=== PATIENT | female | born 1990 | race Caucasian/White ===

== ENCOUNTER 2021-08-18 12:10 | Outpatient (CLI) | payer BC, SELFPAY ==
[2021-08-18 13:31] LABS: HIV 1/2 Ab P24 Ag Result Negative (Negative)
[2021-08-18 13:45] LABS: Hepatitis B Surface Antigen Negative (Negative); Rubella IgG Antibody 39.7 IU/ML
[2021-08-19 11:51] LABS: Rapid Plasma Reagin Non-Reactive (NonReactive)
== END 2021-08-18 12:11 | disposition home or self-care (01) ==
LOC: ANHLAB 12:14
PROVIDERS: PCP Family Medicine; Visit Provider Obstetrics & Gynecology
DX: Z34.91 Encounter for supervision of normal pregnancy, unspecified, first trimester (principal); Z3A.00 Weeks of gestation of pregnancy not specified
CPT/HCPCS: 36415; 84702; 86592; 86703; 86747; 86762; 86787; 86850; 86900; 86901; 87086; 87340; G0432

== ENCOUNTER 2021-09-12 11:50 | Emergency (ER) | payer BC, SELFPAY ==
--- NOTE | ~2021-09-12 | US_ITS ---
EXAMINATION: US OB <= 14 weeks fetus DATE: 09/12/2021 13:05 INDICATION: Left lower quadrant pain TECHNIQUE: Real-time transabdominal and transvaginal obstetric ultrasound. FINDINGS: No prior studies for comparison. The uterus measures 11.3 x 10.6 x 8 cm. There is an intrauterine gestational sac, with pole luna ntified. The crown rump length measures 5.6 cm, which correlates with a estimated gestational age of 12 weeks 2 days. heart tones are identified measuring 161 bpm. IMPRESSION: 1. SL IUP with an EGA of 12 weeks, 2 days (EDC by current ultrasound of 03/25/2022). Reviewed, dictated and finalized at location A. [facility] IMPRESSION: 1. SL IUP with an EGA of 12 weeks, 2 days (EDC by current ultrasound of 03/25/20).
--- NOTE | 2021-09-12 11:52 | ECG_ITS ---
Measurements Intervals [place] Rate: 78 P: 7 LA: 130 QRS: -46 QRSD: 93 T: 52 QT: 352 QTc: 401 Interpretive Statements SINUS RHYTHM LOW QRS VOLTAGE IN PRECORDIAL LEADS INCOMPLETE RIGHT BUNDLE BRANCH BLOCK LEFT ANTERIOR FASCICULAR BLOCK BASELINE ARTIFACT- I, III, AVR, AVL ABNORMAL ECG Electronically Signed On 09-12-2021 12:01:49 BONE PROCESS OPERATOR by Emerson Wynn D.O.
[2021-09-12 11:55] VITALS: BP 112/75; PULSE 90; RESP 16; TEMP 36.4; O2SAT 99
[2021-09-12 12:17] LABS: Basophils Percent Auto 0.1 % (0.2-1.2); Eosinophils Percent Auto 0.4 % (0-4.4); Hematocrit 40.6 % (37.0-47.0); Hemoglobin 13.8 g/dL (12.0-15.0); Immature Granulocyte Absolute 0.03 K/mm3 (0.00-0.031); Immature Granulocyte Percent A 0.4 % (0-0.5); Lymphocytes Absolute Auto 1.01 K/mm3 (0.9-3.2); Lymphocytes Percent Auto 14.1 % (18.3-44.2); Mean Corpuscular Hemoglobin 30.1 pg (26-34); Mean Corpuscular Volume 88.6 fl (80-100); Monocytes Absolute Auto 0.3 K/mm3 (0.1-0.6); Monocytes Percent Auto 4.7 % (2.6-8.5); Neutrophils Absolute Auto 5.8 K/mm3 (1.3-6.7); Neutrophils Percent Auto 80.3 % (45.5-73.1); Platelet Count Result 131 k/mm3 (150-375); Red Blood Count 4.58 M/mm3 (4.2-5.4); White Blood Count 7.2 K/mm3 (4.5-10.0)
--- NOTE | 2021-09-12 12:37 | ED.SYNCOPE ---
HPI - Syncope General Chief Complaint: Syncope Stated Complaint: , SYNCOPE, CRAMPING Time Seen by Provider: 09/12/21 12:08 Source: patient, RN notes reviewed and old records reviewed Mode of arrival: ambulatory Limitations: no limitations History of Present Illness HPI narrative: This is a 31 year old female approximately 11 wks GA who presents for evaluation of left lower abdominal pain and near syncope. Patient reports today she had been standing for an hour and she became lightheaded. She felt like she was going to pass out. She also developed left lower abdominal cramping pain today. She denies having palpitations, chest pain or shortness of breath. She states she has not felt well during this and she has had a previous episode of near syncope recently. She has daily nausea with eating, but she has been trying to eat something every 2 hours. She denies cough, fever, vomiting or diarrhea. She also denies vaginal bleeding or spotting. Related Data Home Medications Medication Instructions Recorded Confirmed No Home Medications 06/14/21 Allergies Allergy/AdvReac Type Severity Reaction Status Date / Time diclofenac Allergy Mild swelling Verified 06/14/21 10:08 and throat numbness Review of Systems Review of Systems: All systems reviewed & are unremarkable except as noted in HPI and below PMFSH Past Medical History Medical History Infertility Family History Family History Father Acute myocardial infarction Mother Diabetes mellitus Hypertension Heart disease Social History Social History Social History: Smoking status: Never smoker Second hand tobacco smoke exposure: No Alcohol intake: never Substance use: never Substance use type: does not use Gender identity (if verbalized by the patient): Female Sexual Orientation (if Verbalized by the Patient): Straight or Heterosexual Exam Narrative: GENERAL: Well-appearing, well-nourished, and in no acute distress. HEAD: Normocephalic, atraumatic EYES: PERRLA and EOMI, conjunctiva clear without discharge EARS: TM's clear bilaterally without erythema or dullness NOSE: Nares clear, no rhinorrhea or epistaxis THROAT:Mucous membranes moist, Oropharynx normal without erythema, exudate, peritonsillar swelling or fluctuance NECK: Supple, without lymphadenopathy or mass RESPIRATORY: No respiratory distress, Airway patent, Respirations non-labored, Clear to auscultation without rales, rhonchi or wheeze HEART: Regular rate and rhythm. No murmur heard. Normal peripheral pulses. ABDOMEN: Soft, nontender, nondistended, normal active bowel sounds. No masses. No rebound or guarding, No organomegaly. EXTREMITIES: No edema, normal strength with full range of motion. SKIN: Warm, dry, normal color without rash NEURO: Alert and oriented x3. CN 2-12 grossly intact. No focal deficits. PSYCH: Normal mood and affect. Course Reevaluation(s) Reevaluation #1: PAtient states she feels better after receiving IVF. She denies any dizziness Date: 09/12/21 Time: 15:25 Vital Signs Vital signs: Vital Signs Temperature 97.6 F 09/12/21 11:55 Pulse Rate 90 09/12/21 11:55 Respiratory Rate 16 09/12/21 11:55 Blood Pressure 112/75 09/12/21 11:55 Pulse Oximetry 99 09/12/21 11:55 Temperature 97.6 F 09/12/21 11:55 Pulse Rate 72 09/12/21 15:42 Respiratory Rate 14 09/12/21 15:42 Blood Pressure 107/63 09/12/21 15:42 Pulse Oximetry 100 09/12/21 15:42 MDM - Syncope Medical Records Attestation: I reviewed the patient's medical records. Lab Data Attestation: I reviewed the patient's lab results. Result diagrams: 09/12/21 11:59 09/12/21 11:59 Labs: Lab Results
[2021-09-12] MEDS: LACTATED RINGERS 1,000 ML 999 ML IV CONT (12:43)
[2021-09-12] MEDS: METOCLOPRAMIDE HCL INJ 10 MG/2 ML VIAL IV PUSH (12:44)
[2021-09-12 12:56] LABS: Anion Gap 8 mmol/L (8-16); Blood Urea Nitrogen 10 mg/dL (7-17); Calcium 8.8 mg/dL (8.4-10.2); Carbon Dioxide 23 mmol/L (22-30); Chloride 102 mmol/L (98-107); Estimated CRCL calculation 115 ml/min; Estimated Glomerular Filt Rate > 60; Glucose 86 mg/dL (65-110); Potassium 4.2 mmol/L (3.4-5.0); Sodium 133 mmol/L (137-145)
[2021-09-12 14:03] LABS: Add Urine Microscopic? YES; Appearance Urine Cloudy (Clear); Bacteria Urine Trace /hpf; Bilirubin Urine Negative (Negative); Blood Urine Negative (Negative); Color Urine Amber (Yellow); Glucose Urine UA Negative (Negative); Ketones Urine Negative (Negative); Leukocyte Esterase Ur 1+ LEU/UL (Negative); Mucus Urine Heavy /lpf; Nitrate Urine Negative (Negative); Protein Urine 1+ mg/dL (Negative); Specific Grav Ur 1.026 (1.001-1.035); Squamous Epithelial Cell Urine Many /hpf (Few); WBC Urine 0-3 /hpf
[2021-09-12 14:08] VITALS: BP 102/63; PULSE 72; RESP 12; O2SAT 100
[2021-09-12 14:16] VITALS: BP 102/63; BP 114/59; PULSE 67; PULSE 72
[2021-09-12 14:21] VITALS: BP 111/76; PULSE 89
[2021-09-12 14:54] LABS: Magnesium 1.8 mg/dL (1.6-2.3)
[2021-09-12 15:42] VITALS: BP 107/63; PULSE 72; RESP 14; O2SAT 100
== END 2021-09-12 15:43 | disposition home or self-care (01) ==
PROVIDERS: Emergency Provider General Practice; PCP Family Medicine
DX: O26.891 Other specified pregnancy related conditions, first trimester (principal); R55 Syncope and collapse; R10.32 Left lower quadrant pain
CPT/HCPCS: 36415; 76801; 80048; 81001; 81025; 83735; 84702; 85025; 85055; 85461; 93005; 96361; 96365; 96375; 99284; J0131; J2765; J7120

== ENCOUNTER 2022-01-04 07:16 | Outpatient (CLI) | payer BC, SELFPAY ==
[2022-01-04 08:58] LABS: Glucose 1 Hour PP 50gm Dose 120 mg/dL
[2022-01-04 09:11] LABS: Basophils Percent Auto 0.4 % (0.2-1.2); Eosinophils Absolute Auto 0.1 K/mm3 (0-0.3); Hematocrit 34.4 % (37.0-47.0); Hemoglobin 11.4 g/dL (12.0-15.0); Immature Granulocyte Absolute 0.09 K/mm3 (0.00-0.031); Immature Granulocyte Percent A 1.2 % (0-0.5); Immature Platelet Fraction Pct 7.4 % (0.9-11.2); Lymphocytes Percent Auto 14.4 % (18.3-44.2); Mean Corpuscular HGB Conc 33.1 g/dl (32-36); Mean Corpuscular Volume 93.5 fl (80-100); Mean Platelet Volume 11.8 fl (7.4-10.4); Monocytes Absolute Auto 0.6 K/mm3 (0.1-0.6); Monocytes Percent Auto 7.5 % (2.6-8.5); Neutrophils Absolute Auto 5.8 K/mm3 (1.3-6.7); Neutrophils Percent Auto 75.5 % (45.5-73.1); Platelet Count Result 121 k/mm3 (150-375); Red Blood Count 3.68 M/mm3 (4.2-5.4); White Blood Count 7.7 K/mm3 (4.5-10.0)
[2022-01-04 09:37] LABS: HIV 1/2 Ab P24 Ag Result Negative (Negative)
== END 2022-01-04 07:17 | disposition home or self-care (01) ==
LOC: ANHLAB 07:17
PROVIDERS: PCP Family Medicine; Visit Provider Obstetrics & Gynecology
DX: Z34.90 Encounter for supervision of normal pregnancy, unspecified, unspecified trimester (principal)
CPT/HCPCS: 36415; 82947; 85025; 85055; 86703; G0432

== ENCOUNTER 2022-01-12 13:45 | Outpatient (CLI) | payer BC, SELFPAY ==
[2022-01-12 14:31] LABS: Add Urine Microscopic? YES; Appearance Urine Clear (Clear); Bacteria Urine Trace /hpf; Bilirubin Urine Negative (Negative); Blood Urine 1+ (Negative); Color Urine Yellow (Yellow); Glucose Urine UA Negative (Negative); Ketones Urine Trace mg/dL (Negative); Leukocyte Esterase Ur Trace LEU/UL (Negative); Mucus Urine Rare /lpf; Nitrate Urine Negative (Negative); Protein Urine Negative (Negative); RBC Urine 21-50 /hpf (0-2); Specific Grav Ur 1.019 (1.001-1.035); Squamous Epithelial Cell Urine Rare /hpf (Few); Urobilinogen Urine Negative mg/dL (<2.0)
== END 2022-01-12 13:46 | disposition home or self-care (01) ==
LOC: ANHLAB 13:49
PROVIDERS: PCP Family Medicine; Visit Provider Obstetrics & Gynecology
DX: R10.30 Lower abdominal pain, unspecified (principal)
CPT/HCPCS: 81001

== ENCOUNTER 2022-01-14 13:37 | Observation (INO) | payer BC, SELFPAY ==
--- NOTE | ~2022-01-14 | US_ITS ---
EXAMINATION: US OB limited DATE: 01/14/2022 14:58 INDICATION: Left flank pain. Assess placenta and well-being during third trimester of . TECHNIQUE: Real-time ultrasound of the pelvis was performed. The interpreting radiologist was not pre sent for the study. COMPARISON: 09/12/2021 FINDINGS: There is a single living fetus in vertex presentation. Normal anterior placenta. heart rate is 135 beats per minute (bpm). The amniotic fluid volume is subjectively normal. IMPRESSION: 1. Single living fetus in vertex presentation with heart rate of 135 bpm. 2. Normal anterior placenta. Reviewed, dictated and finalized at location A. ING METER INSTALLER IMPRESSION: 1. Single living fetus in vertex presentation with heart rate of 135 bpm . 2. Normal anterior placenta.
--- NOTE | ~2022-01-14 | US_ITS ---
EXAMINATION: US renal BI DATE: 01/14/2022 15:00 INDICATION: Left flank pain TECHNIQUE: Multiple ultrasound grayscale images of the kidneys were obtained. COMPARISON: None. FINDINGS: The right kidney measures 10.0 x 4.6 x 5.0 cm. The left kidney measures 10.5 x 3.7 x 4.9 cm. The kidn eys demonstrate normal echogenicity. Mild left hydrocele. No right hydrocele. There is no hydronephro sis in either kidney. No stones identified. The bladder is decompressed and poorly visualized. IMPRESSION: 1. Mild left hydronephrosis. Reviewed, dictated and finalized at location A. NICAL DELIVERY MANAGER
[2022-01-14 13:44] VITALS: BP 124/80; PULSE 81
--- NOTE | 2022-01-14 13:56 | PC.NURSE ---
Called Dr. Desouza with pt admission. Informed of admission on 01/12 and treatment for UTI. Pt complaining of severe left flank pain radiating into abdomen. Pt unable to sit still. FHTs obtained with [facility]. Orders received.
[2022-01-14 14:00] VITALS: TEMP 36.7; BMI 25.0
[2022-01-14] MEDS: MORPHINE SULFATE (*CRX) 2 MG/ML INJ IV PUSH (14:16)
[2022-01-14] MEDS: LACTATED RINGERS 1,000 ML 999 ML IV CONT (14:18)
--- NOTE | 2022-01-14 15:12 | PC.NURSE ---
Called Dr. Lerner with pt update. Informed of continued pain. Ultrasound report given. Orders received.
[2022-01-14] MEDS: HYDROmorphone HCL INJ (*CRX) 1 MG/ML SYR IV PUSH (15:21)
[2022-01-14 15:51] LABS: Basophils Percent Auto 0.3 % (0.2-1.2); Eosinophils Absolute Auto 0.1 K/mm3 (0-0.3); Eosinophils Percent Auto 0.5 % (0-4.4); Hematocrit 34.5 % (37.0-47.0); Hemoglobin 11.6 g/dL (12.0-15.0); Immature Granulocyte Percent A 0.9 % (0-0.5); Immature Platelet Fraction Pct 7.6 % (0.9-11.2); Lymphocytes Absolute Auto 1.16 K/mm3 (0.9-3.2); Lymphocytes Percent Auto 10.6 % (18.3-44.2); Mean Corpuscular HGB Conc 33.6 g/dl (32-36); Mean Corpuscular Hemoglobin 30.9 pg (26-34); Mean Platelet Volume 11.3 fl (7.4-10.4); Monocytes Absolute Auto 0.8 K/mm3 (0.1-0.6); Monocytes Percent Auto 6.8 % (2.6-8.5); Neutrophils Absolute Auto 8.9 K/mm3 (1.3-6.7); Neutrophils Percent Auto 80.9 % (45.5-73.1); Platelet Count Result 109 k/mm3 (150-375); Red Blood Count 3.75 M/mm3 (4.2-5.4); Red Cell Distribution Width 12.3 % (11.5-14.5)
[2022-01-14] MEDS: LACTATED RINGERS 1,000 ML 150 ML IV CONT ×3 (15:52→23:27)
[2022-01-14 15:57] LABS: Add Urine Microscopic? YES; Appearance Urine Cloudy (Clear); Bacteria Urine Trace /hpf; Bilirubin Urine Negative (Negative); Blood Urine Negative (Negative); Color Urine Yellow (Yellow); Glucose Urine UA Negative (Negative); Ketones Urine 1+ mg/dL (Negative); Leukocyte Esterase Ur Trace LEU/UL (NEGATIVE); Mucus Urine Rare /lpf; Nitrate Urine Negative (Negative); Protein Urine Negative (Negative); Specific Grav Ur 1.017 (1.001-1.035); Squamous Epithelial Cell Urine Moderate /hpf (Few); Urobilinogen Urine Negative mg/dL (<2.0); WBC Urine 0-3 /hpf (0-3)
--- NOTE | 2022-01-14 16:05 | PC.NURSE ---
Called Dr. Rice's exchange and left message.
--- NOTE | 2022-01-14 16:12 | PC.NURSE ---
Called Dr. Desouza with pt update. Pt still complaining of pain. Also informed of contractions noted on tracing. Informed that pt is unable to void at this time and has only had about 15cc out since admission. Orders received.
[2022-01-14] MEDS: TERBUTALINE SULFATE 1 MG/ML VIAL 0.25 MG SUB-Q (16:32)
--- NOTE | 2022-01-14 16:45 | PC.NURSE ---
Dr. Rice returned call. Report given on pt. Will see pt in AM unless worsening symptoms.
[2022-01-14] MEDS: HYDROmorphon 0.2MG/ML PCA(*CRX 6 MG/30 ML PCA.VIAL 0.1 MG IV CONT (17:20)
--- NOTE | 2022-01-14 18:10 | PC.NURSE ---
Called Dr. Desouza with pt update. Informed of continuing pain. Urine output about 100cc in 1.5hrs. Orders received.
[2022-01-14 18:16] VITALS: BP 99/67; PULSE 107
[2022-01-14 18:18] VITALS: RESP 17; TEMP 36.9
--- NOTE | 2022-01-14 20:36 | PC.NURSE ---
called in for update, informed pt's pain is down to a 5 on pain scale from a 7 and has around 200-250 in her garcia. Order received for zofran prn for pt's nausea.
[2022-01-14] MEDS: ONDANSETRON INJ 4 MG/2 ML VIAL IV PUSH (20:51)
[2022-01-15] VITALS (7 sets, daily range): BP systolic 104–117; BP diastolic 64–73; PULSE 82–84; RESP 15; TEMP 36.4–36.9
[2022-01-15] MEDS: HYDROmorphon 0.2MG/ML PCA(*CRX 6 MG/30 ML PCA.VIAL 0.1 MG IV CONT (03:17)
--- NOTE | 2022-01-15 08:04 | WPDURCON ---
Assessment and Plan Assessment and plan (1) Left flank pain: Code(s): R10.9 - Unspecified abdominal pain Status: Acute Assessment and Plan: Atypical left flank pain that is improved significantly over 12 hours. Given that, and the minimal hydronephrosis on renal ultrasound, doubt the presence of a ureteral stone. Her urinalysis is significantly contaminated in the scant hematuria seen is. She continues to feel well along comfortable with discharge today. I would recommend a repeat renal ultrasound within the next several days, specifically looking for ureteral jets. Urology Consult Note HPI Date Seen: 01/15/22 Requesting Physician: Kerry Bauman MD Primary Care Provider: Latanya Lazcano MD Consult Narrative Narrative: Jane Babin is a 31 year old female - pleasant young lady at 26 weeks gestation with her first baby. She was admitted yesterday with a 24-36 hour history progressively uncomfortable pelvic and left flank pain. This pain was somewhat positional, exacerbated by walking. It was associated with some mild nausea but no vomiting. She denies fevers chills or significant change in voiding symptoms. She has no history of urolithiasis. Pain is improved significantly overnight and she is quite comfortable this morning only mild pelvic discomfort. Renal ultrasound showed scant left hydronephrosis. Due to patient's discomfort the boiler/chiller technician was unable to look for the presence of ureteral jets. Review of Systems Cardiovascular: Cardiovascular: Denies chest pain, Denies lightheadedness, Denies palpitations and Denies dyspnea Respiratory: Respiratory: Denies dyspnea Gastrointestinal: Gastrointestinal: Denies diarrhea, Denies nausea and Denies vomiting Genitourinary: Genitourinary: Denies hematuria and Denies dysuria Endocrine: Endocrine: Denies palpitations [facility] Past Medical History Medical History Infertility Aleah's syndrome Family History Family History Father Acute myocardial infarction Mother Diabetes mellitus Hypertension Heart disease Hypercholesterolemia Social History Social History Social History: Smoking status: Never smoker Second hand tobacco smoke exposure: No Alcohol intake: never Substance use: never Substance use type: does not use Gender identity (if verbalized by the patient): Female Sexual Orientation (if Verbalized by the Patient): Straight or Heterosexual Meds Home Medications and Allergies Home Medications Medication Instructions Recorded Confirmed Type pediatric multivitamin no.76 1 tablet PO DAILY 12/13/21 History nitrofurantoin 100 mg PO BID 7 Days #14 cap 01/12/22 Rx monohydrate/macrocrystals 100 mg capsule Allergies Allergy/AdvReac Type Severity Reaction Status Date / Time diclofenac Allergy Mild swelling Verified 01/10/22 10:17 and throat numbness acetaminophen AdvReac Severe Hallucinati Verified 01/10/22 10:17 [From Tylenol-Codeine #3] ng codeine AdvReac Severe Hallucinati Verified 01/10/22 10:17 [From Tylenol-Codeine #3] ng Vital Signs Vital Signs - 24 hr 01/14/22 13:44 01/14/22 14:00 01/14/22 18:16 Temperature 98.1 F Pulse Rate 81 107 H Respiratory Rate Blood Pressure 124/80 99/67 L Blood Pressure [Left Arm] 01/14/22 18:18 01/15/22 03:17 01/15/22 03:19 Temperature 98.4 F Pulse Rate 82 Respiratory Rate 17 15 Blood Pressure 117/73 Blood Pressure [Left Arm] 01/15/22 03:30 01/15/22 03:51 01/15/22 07:10 Temperature 98.4 F 97.6 F Pulse Rate Respiratory Rate Blood Pressure Blood Pressure [Left Arm] 117/73 Exam Const: General: no acute distress Resp: Effort & Inspection: normal respiratory effort GI: Inspec
[2022-01-15] MEDS: HYDROcodone/acetaminophen (*CRX) 5-325 MG TABLET 1 TAB PO (09:29)
--- NOTE | 2022-01-15 09:29 | PM.OBTRLD ---
OB - Triage/Final Diagnosis Visit Information Date of evaluation: 01/15/22 Reason for evaluation: other (flank pain) Comments/Additional reasons for admission: I have assessed the risk for this patient, Jane Babin, and determined that she would benefit from observation care. Patient with severe flank pain 10/10. Also, c/o nausea and vomiting. On admit, could not find comfortable position. No fevers. Pain increasing since when here for mild pain. UA with +blood and treated for UTI. No urine culture done for that visit. Initially given 2 mg Morphine without relief. Given Dilaudid and pain decreased to 7/10. Started on Dilaudid CIGAR HEAD STRINGER. Pain finally improved in middle of night. Now no meds for 2 hours and pain a 1/10. Nausea resolved. Minimal, dark urine even after 1 liter bolus LR. [place] placed and 2nd liter LR bolused followed by 175 cc/h. Urine output now good. Before hydrated, was noted to be nicholas. These resolved with IV hydration and x 1 Terbutaline. Good movement. Evaluation Laboratory results: Laboratory Tests 01/14/22 01/14/22 15:26 15:34 WBC 11.0 H RBC 3.75 L Hgb 11.6 L Hct 34.5 L MCV 92.0 MCH 30.9 MCHC 33.6 RDW 12.3 Plt Count 109 L MPV 11.3 H Immature Gran % (Auto) 0.9 H Neut % (Auto) 80.9 H Lymph % (Auto) 10.6 L [place] % (Auto) 6.8 Eos % (Auto) 0.5 Baso % (Auto) 0.3 Lymph # (Auto) 1.16 [place] # (Auto) 0.8 H Eos # (Auto) 0.1 Baso # (Auto) 0.0 Abs Immat Gran (auto) 0.10 H Absolute Neuts (auto) 8.9 H Absolute Nucleated RBC 0.0 Nucleated RBC % 0.0 % Immature Plt Fraction 7.6 Urine Color Yellow Urine Appearance Cloudy H Urine pH 6.0 Ur Specific [place] 1.017 Urine Protein Negative Urine Glucose (UA) Negative Urine Ketones 1+ H Ur Blood (Man) Negative Urine Nitrate Negative Urine Bilirubin Negative Urine Urobilinogen Negative Ur Leukocyte Esterase Trace H Urine RBC 6-10 H Urine WBC 0-3 Ur Squamous Epith Cells Moderate H Urine Bacteria Trace Urine Mucus Rare Vital signs: Vital Signs - 24 hr 01/14/22 13:44 01/14/22 14:00 01/14/22 18:16 Temperature 98.1 F Pulse Rate 81 107 H Respiratory Rate Blood Pressure 124/80 99/67 L Blood Pressure [Left Arm] 01/14/22 18:18 01/15/22 03:17 01/15/22 03:19 Temperature 98.4 F Pulse Rate 82 Respiratory Rate 17 15 Blood Pressure 117/73 Blood Pressure [Left Arm] 01/15/22 03:30 01/15/22 03:51 01/15/22 07:10 Temperature 98.4 F 97.6 F Pulse Rate Respiratory Rate Blood Pressure Blood Pressure [Left Arm] 117/73 Comments: FHTs category I throughout abdomen soft, nt minimal CVA tenderness on left now but severe on admit for RN Final Diagnosis (1) Left flank pain: Code(s): R10.9 - Unspecified abdominal pain Status: Acute Plan: suspect kidney stone passed to bladder u/s normal UA ok last pm significant improvement overnight Wean to oral [place] and dc home if no return of pain. plan to strain urine. Urology consult appreciated. (2) Thrombocytopenia affecting : Code(s): O99.119 - Other diseases of the blood and blood-forming organs and certain disorders involving the immune mechanism complicating , unspecified trimester; D69.6 - Thrombocytopenia, unspecified Status: Acute Plan: 109 has been followed throughout
== END 2022-01-15 12:05 | disposition home or self-care (01) ==
PROVIDERS: Obstetrics & Gynecology Gynecology; Admitting Provider Obstetrics & Gynecology; PCP Family Medicine; Visit Provider Obstetrics & Gynecology
DX: O26.893 Other specified pregnancy related conditions, third trimester (principal); R10.9 Unspecified abdominal pain; O99.113 Other diseases of the blood and blood-forming organs and certain disorders involving the immune mechanism complicating pregnancy, third trimester; D69.6 Thrombocytopenia, unspecified; Z3A.29 29 weeks gestation of pregnancy
CPT/HCPCS: 36415; 59025; 76775; 76815; 81001; 85025; 85055; 87086; 96361; 96365; 96366; 96372; 96375; 96376; A9270; G0378; G0379; J1170; J2270; J2405; J3105; J7120

== ENCOUNTER 2022-01-17 16:36 | Observation (INO) | payer BC, SELFPAY ==
--- NOTE | 2022-01-17 16:36 | OBADM ---
This patient, Jane Babin, admitted to the OB room OB Post 116 for observation N/V and left flank pain. Patient/family oriented to hospital policies and general routines including ID bracelet, bed and alarms, visiting hours, pain management, procedures, bathroom and other care routines, personal items, smoking policy, room service/diet, and visiting hours. Patient/Family are encouraged to report perceived risks to care and to ask questions if they do not understand what they are told or what they should do.
[2022-01-17 16:48] VITALS: RESP 20; TEMP 36.6
[2022-01-17 17:01] VITALS: BP 143/84; PULSE 82
[2022-01-17] MEDS: LACTATED RINGERS 1,000 ML 999 ML IV CONT ×2 (17:40→19:47)
[2022-01-17] MEDS: FAMOTIDINE 20 MG/2 ML VIAL IV PUSH (17:40)
[2022-01-17] MEDS: ONDANSETRON INJ 4 MG/2 ML VIAL IV PUSH (17:41)
[2022-01-17 17:43] VITALS: PULSE 86; O2SAT 100
[2022-01-17 17:45] VITALS: BP 114/79; PULSE 74
[2022-01-17] MEDS: MORPHINE SULFATE INJ (*CRX) 10 MG/ML AMP IM (17:46)
[2022-01-17 18:02] VITALS: BMI 25.0
[2022-01-17 18:18] LABS: Hematocrit 35.2 % (37.0-47.0); Hemoglobin 12.1 g/dL (12.0-15.0); Mean Corpuscular HGB Conc 34.4 g/dl (32-36); Mean Corpuscular Volume 90.3 fl (80-100); Mean Platelet Volume 11.5 fl (7.4-10.4); Platelet Count Result 120 k/mm3 (150-375); White Blood Count 11.6 K/mm3 (4.5-10.0)
[2022-01-17 18:27] VITALS: TEMP 36.7
[2022-01-17 18:38] LABS: Alanine Aminotransferase 17 U/L (4-35); Albumin Level 3.6 g/dL (3.5-5.1); Alkaline Phosphatase 98 U/L (38-126); Anion Gap 6 mmol/L (8-16); Aspartate Amino Transferase 27 U/L (14-36); Bilirubin,Total 0.4 mg/dL (0.2-1.3); Blood Urea Nitrogen 9 mg/dL (7-17); Calcium 8.6 mg/dL (8.4-10.2); Carbon Dioxide 21 mmol/L (22-30); Chloride 106 mmol/L (98-107); Estimated CRCL calculation 115 ml/min; Estimated Glomerular Filt Rate > 60; Glucose 80 mg/dL (65-110); Potassium 3.9 mmol/L (3.4-5.0); Sodium 133 mmol/L (137-145)
[2022-01-17 18:56] LABS: Add Urine Microscopic? YES; Appearance Urine Clear (Clear); Bacteria Urine Trace /hpf; Bilirubin Urine Negative (Negative); Blood Urine 1+ (Negative); Color Urine Yellow (Yellow); Glucose Urine UA Negative (Negative); Ketones Urine 1+ mg/dL (Negative); Leukocyte Esterase Ur Negative LEU/UL (Negative); Mucus Urine Rare /lpf; Nitrate Urine Negative (Negative); Protein Urine Negative (Negative); RBC Urine 0-2 /hpf (0-2); Specific Grav Ur 1.005 (1.001-1.035); Squamous Epithelial Cell Urine Rare /hpf (Few); Urobilinogen Urine Negative mg/dL (<2.0); WBC Urine 0-3 /hpf
[2022-01-17] MEDS: oxyCODONE/ACETAMINOPHEN (*CRX) 5-325 MG TABLET 1 TABLET PO (19:52)
[2022-01-17] MEDS: ceFAZolin 2 GM/D5W 50 ML 2 GM/50 ML BAG IVPB (19:52)
--- NOTE | 2022-01-17 21:20 | PC.NURSE ---
pt states that she is feeling better and would like to d/c home. went to pharmacy and picked up new pain med to take at home. per Dr. Govea- pt may d/c home if feeling better.
--- NOTE | 2022-01-18 00:25 | PC.NURSE ---
1912- paged Dr. Govea through the answering service. 1917- Dr. Govea responded to page- updated on pt status. UA results reviewed. orders received to give 1L LR bolus, percocet 5/325mg po x1 now. ancef 2g. pt c/o lower abd pain/cramping rating it 5/10 on pain scale. pt to stop taking norco at home. Dr. Govea will call in order for percocet and antibiotic to pharmacy now for pt to have at home. will continue to monitor and if pt feeling better after pain meds pt may d/c home with instructions on when to return to L&D or call office.
--- NOTE | 2022-01-19 08:11 | PM.OBTRLD ---
OB - Triage/Final Diagnosis Visit Information Reason for evaluation: other ( Flank pain) Comments/Additional reasons for admission: I have assessed the risk for this patient, Jane Babin, and determined that she would benefit from observation care. Evaluation Laboratory results: Laboratory Tests 01/17/22 01/17/22 01/17/22 18:02 18:02 18:25 WBC 11.6 H RBC 3.90 L Hgb 12.1 Hct 35.2 L MCV 90.3 MCH 31.0 MCHC 34.4 RDW 12.0 Plt Count 120 L MPV 11.5 H Sodium 133 L Potassium 3.9 Chloride 106 Carbon Dioxide 21 L Anion Gap 6 L BUN 9 Creatinine 0.60 L Estim Creat Clear Calc 115 Estimated GFR > 60 Glucose 80 Calcium 8.6 Total Bilirubin 0.4 AST 27 ALT 17 Alkaline Phosphatase 98 Total Protein 6.0 L Albumin 3.6 Urine Color Yellow Urine Appearance Clear Urine pH 7.0 Ur Specific [place] 1.005 Urine Protein Negative Urine Glucose (UA) Negative Urine Ketones 1+ H Ur Blood (Man) 1+ H Urine Nitrate Negative Urine Bilirubin Negative Urine Urobilinogen Negative Leukocyte Esterase Rfl Negative Urine RBC 0-2 Urine WBC 0-3 Ur Squamous Epith Cells Rare Urine Bacteria Trace Urine Mucus Rare
== END 2022-01-17 21:35 | disposition home or self-care (01) ==
PROVIDERS: Admitting Provider Obstetrics & Gynecology; PCP Family Medicine; Visit Provider Obstetrics & Gynecology
DX: O26.893 Other specified pregnancy related conditions, third trimester (principal); R10.9 Unspecified abdominal pain; Z3A.30 30 weeks gestation of pregnancy
CPT/HCPCS: 36415; 80053; 81001; 85027; 96361; 96365; 96372; 96375; A9270; G0378; G0379; J0690; J2270; J2405; J7120

== ENCOUNTER 2022-01-23 15:25 | Outpatient (CLI) | payer BC, SELFPAY ==
--- NOTE | ~2022-01-23 | US_ITS ---
US renal BI 01/23/2022 15:47 Procedure: Realtime transabdominal ultrasound of the kidneys and bladder. Indication: Renal stones Comparison: Ultrasound dated 01/14/2022 Findings: Renal echotexture is normal bilaterally without hydronephrosis, contour deforming mass or r enal calculus. The right kidney measures 10.5 cm and left kidney measures 9.9 cm. Bladder within nor mal limits. All bilateral resistive indices are less than 0.7. Impression: 1: Unremarkable renal ultrasound. No stones, masses or hydronephrosis. Reviewed, dictated and finalized at location A. Impression: 1: Unremarkable renal ultrasound. No stones, masses or hydronephrosis.
== END 2022-01-23 15:26 | disposition home or self-care (01) ==
LOC: ANHIMG 15:26
PROVIDERS: PCP Family Medicine; Visit Provider Obstetrics & Gynecology
DX: N20.0 Calculus of kidney (principal)
CPT/HCPCS: 76775

== ENCOUNTER 2022-02-10 07:48 | Outpatient (CLI) | payer BC, SELFPAY ==
[2022-02-10 08:26] LABS: Mean Platelet Volume 11.6 fl (7.4-10.4); Platelet Count Result 123 k/mm3 (150-375)
== END 2022-02-10 07:49 | disposition home or self-care (01) ==
LOC: ANHLAB 07:50
PROVIDERS: PCP Family Medicine; Visit Provider Obstetrics & Gynecology
DX: O99.13 Other diseases of the blood and blood-forming organs and certain disorders involving the immune mechanism complicating the puerperium (principal); D69.6 Thrombocytopenia, unspecified; Z3A.33 33 weeks gestation of pregnancy
CPT/HCPCS: 36415; 85049

== ENCOUNTER 2022-03-19 15:49 | Inpatient (IN) | payer BC, SELFPAY ==
[2022-03-19] VITALS (18 sets, daily range): BP systolic 114–145; BP diastolic 68–92; PULSE 64–79; TEMP 36.3; BMI 26.4
--- NOTE | 2022-03-19 16:13 | LDADM ---
This patient, Jane Babin, was admitted to Labor/Delivery/Recovery 108 on 03/19/22 at 15:49. Plans for labor, pain management and were discussed with patient. Patient/family oriented to hospital policies and general routines including ID bracelet, bed and alarms, visiting hours, pain management, procedures, bathroom and other care routines, personal items, smoking policy, room service/diet and guest tray routines, infant security routines, and visiting hours. Patient/Family are encouraged to report perceived risks to care and to ask questions if they do not understand what they are told or what they should do. See OBIX for further documentation.
[2022-03-19 16:22] LABS: Basophils Percent Auto 0.2 % (0.2-1.2); Eosinophils Percent Auto 0.4 % (0-4.4); Hematocrit 35.9 % (37.0-47.0); Hemoglobin 12.1 g/dL (12.0-15.0); Immature Granulocyte Absolute 0.06 K/mm3 (0.00-0.031); Immature Granulocyte Percent A 0.7 % (0-0.5); Lymphocytes Absolute Auto 1.16 K/mm3 (0.9-3.2); Lymphocytes Percent Auto 14.4 % (18.3-44.2); Mean Corpuscular HGB Conc 33.7 g/dl (32-36); Mean Corpuscular Volume 89.1 fl (80-100); Mean Platelet Volume 11.2 fl (7.4-10.4); Monocytes Absolute Auto 0.8 K/mm3 (0.1-0.6); Monocytes Percent Auto 9.4 % (2.6-8.5); Neutrophils Percent Auto 74.9 % (45.5-73.1); Platelet Count Result 151 k/mm3 (150-375); Red Blood Count 4.03 M/mm3 (4.2-5.4); Red Cell Distribution Width 12.6 % (11.5-14.5); White Blood Count 8.1 K/mm3 (4.5-10.0)
[2022-03-19] MEDS: DINOPROSTONE 10 MG VAG INSERT VAGINAL (16:42)
--- NOTE | 2022-03-19 18:24 | WPDANESEPP ---
Anes - Eval Pre Procedure Procedure: Labor epidural Date/Time: 03/19/22 18:24 Surgeon: Nnamdi pain with contractions Pre Op Diagnosis: IOL Patient Data Age: 32 Gender: F Height: 1.73 m Weight: 79 kg Last Vital Signs Temp 97.3 F L 03/19/22 16:30 Pulse 71 03/19/22 18:00 BP 126/82 03/19/22 18:00 Allergies Allergy/AdvReac Type Severity Reaction Status Date / Time diclofenac Allergy Mild swelling Verified 03/16/22 09:35 and throat numbness codeine AdvReac Severe Hallucinati Verified 03/16/22 09:35 [From Tylenol-Codeine #3] ng Home Medications Medication Instructions Recorded Confirmed Type pediatric multivitamin no.76 2 tablet PO DAILY 12/13/21 03/19/22 History famotidine 20 mg tablet 20 mg PO DAILY #60 tablet 01/24/22 03/19/22 Rx Laboratory Tests 03/19/22 03/19/22 03/19/22 16:15 16:15 16:15 WBC 8.1 K/mm3 K/mm3 (4.5-10.0) RBC 4.03 M/mm3 L M/mm3 (4.2-5.4) Hgb 12.1 g/dL g/dL (12.0-15.0) Hct 35.9 % L % (37.0-47.0) MCV 89.1 fl fl (80-100) MCH 30.0 pg pg (26-34) MCHC 33.7 g/dl g/dl (32-36) RDW 12.6 % % (11.5-14.5) Plt Count 151 k/mm3 k/mm3 (150-375) MPV 11.2 fl H fl (7.4-10.4) Immature Gran % (Auto) 0.7 % H % (0-0.5) Neut % (Auto) 74.9 % H % (45.5-73.1) Lymph % (Auto) 14.4 % L % (18.3-44.2) [place] % (Auto) 9.4 % H % (2.6-8.5) Eos % (Auto) 0.4 % % (0-4.4) Baso % (Auto) 0.2 % % (0.2-1.2) Lymph # (Auto) 1.16 K/mm3 K/mm3 (0.9-3.2) [place] # (Auto) 0.8 K/mm3 H K/mm3 (0.1-0.6) Eos # (Auto) 0.0 K/mm3 K/mm3 (0-0.3) Baso # (Auto) 0.0 K/mm3 K/mm3 (0.0-0.1) Abs Immat Gran (auto) 0.06 K/mm3 H K/mm3 (0.00-0.031) Absolute Neuts (auto) 6.0 K/mm3 K/mm3 (1.3-6.7) Absolute Nucleated RBC 0.0 K/mm3 K/mm3 (0.0-0.012) Nucleated RBC % 0.0 % % (0.0-0.2) RPR Pending Blood Type A Positive Antibody Screen Negative Patient hx anesthesia problems: none Family hx anesthesia problems: none Results Review: All pre-operative results and documents have been reviewed as part of the pre-operative evaluation. 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 Thrombocytopenia affecting Family History Family History Father Acute myocardial infarction Mother Diabetes mellitus Hypertension Heart disease Hypercholesterolemia Social History Social History Social History: Smoking status: Never smoker Second hand tobacco smoke exposure: No Alcohol intake: never Substance use: never Substance use type: does not use Gender identity (if verbalized by the patient): Female Sexual Orientation (if Verbalized by the Patient): Straight or Heterosexual Spiritual care concerns: No Exam Day of Procedure 03/19/22 18:24 Patient weight: normal Heart: regular rate and rhythm Airway: Mallampati scale class II Neurological: alert and oriented
[2022-03-19] MEDS: FAMOTIDINE 20 MG TABLET PO (20:08)
[2022-03-19] MEDS: fentaNYL CITRATE INJ (*CRX) 100 MCG/2 ML VIAL 50 MCG IV PUSH (22:54)
[2022-03-20] VITALS (170 sets, daily range): BP systolic 101–156; BP diastolic 48–120; PULSE 62–277; RESP 18; TEMP 36.2–37.3; O2SAT 94–100
[2022-03-20] MEDS: fentaNYL CITRATE INJ (*CRX) 100 MCG/2 ML VIAL 50 MCG IV PUSH (00:14)
[2022-03-20] MEDS: fentaNYL CITRATE INJ (*CRX) 100 MCG/2 ML VIAL IV PUSH (01:44)
[2022-03-20] MEDS: LACTATED RINGERS 1,000 ML 125 ML IV CONT ×3 (01:44→06:16)
[2022-03-20] MEDS: OXYTOCIN 30 UNITS/NS 500 ML 30 UNITS/500 ML BAG 6 UNITS IV CONT (06:15)
--- NOTE | 2022-03-20 07:27 | P.HP_ITS ---
H&P: HPI History of Present Illness Date/Time: 03/20/22 07:22 Jane is a 32yo @ 39.1wks (LUIZ 03/26/22) who was admitted to L&D last night for elective induction of labor. She reports good movement. Having painful contractions; epidural in place and it was just bloused. No VB or LOF. She has had regular care. Her is complicated by: 1. Gestational thrombocytopenia; 131k -- 120k --> 123k 2. 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 Thrombocytopenia affecting Family History Family History Father Acute myocardial infarction Mother Diabetes mellitus Hypertension Heart disease Hypercholesterolemia Social History Social History Social History: Smoking status: Never smoker Second hand tobacco smoke exposure: No Alcohol intake: never Substance use: never Substance use type: does not use Gender identity (if verbalized by the patient): Female Sexual Orientation (if Verbalized by the Patient): Straight or Heterosexual Spiritual care concerns: No Meds Home Medications and Allergies Home Medications Medication Instructions Recorded Confirmed Type pediatric multivitamin no.76 2 tablet PO DAILY 12/13/21 03/19/22 History famotidine 20 mg tablet 20 mg PO DAILY #60 tablet 01/24/22 03/19/22 Rx Allergies Allergy/AdvReac Type Severity Reaction Status Date / Time diclofenac Allergy Mild swelling Verified 03/16/22 09:35 and throat numbness codeine AdvReac Severe Hallucinati Verified 03/16/22 09:35 [From Tylenol-Codeine #3] ng Exam Const: General: cooperative, healthy appearing, comfortable and no acute distress Resp: Effort & Inspection: normal respiratory effort Cardio: Rate: regular rate GI: Inspection: normal to inspection : Other: FHT's: 130s/ mod steph/ + accels/ no decels - cat 1 TOCO: ctx's q2-4min Cervix: 2.5/80/-2 Presentation: cephalic Membranes: intact; GBS negative Skin: General skin exam: normal color Neuro: General: patient oriented x3 Psych: Appearance: grossly normal Assessment and Plan Assessment and plan (1) Encounter for elective induction of labor: Code(s): Z34.90 - Encounter for supervision of normal , unspecified, unspecified trimester Status: Acute (2) Thrombocytopenia affecting : Code(s): O99.119 - Other diseases of the blood and blood-forming organs and certain disorders involving the immune mechanism complicating , unspecified trimester; D69.6 - Thrombocytopenia, unspecified Status: Acute Additional Plan - Admitted to L&D for IOL; s/p cervidil overnight and now on pitocin per protocol - Continuous monitoring; currently reassuring - GBS negative - Anesthesia consult PRN pain
--- NOTE | 2022-03-20 07:27 | WPDHPUPDATE1 ---
History and Physical Update Update Date/Time: 03/20/22 07:27 History and Physical has been reviewed, including an updated exam of the patient. There are NO changes in the patient's condition. Risks, benefits, and alternatives have been discussed and questions answered. Patient agrees to proceed with procedure.
[2022-03-20 09:45] LABS: Rapid Plasma Reagin Non-Reactive (NonReactive)
--- NOTE | 2022-03-20 12:08 | P.PCNOB_ITS ---
OB - Delivery Note Procedure Delivery date: 03/20/22 Events: Elective Induction of Labor Induction method: Per Cervidil Protocol Delivery augmentation: Rupture of Membranes and Pitocin Delivery monitor: External FHT and External Uterine Route of delivery: Laceration Description: Periurethral (left) and Perineal - 1st Degree Delivery repair: vicryl Specimen: No Quantitative Blood Loss (ml): 200 Anesthesia type: Epidural Disposition: Floor [place] Baby Date of : 03/20/22 Time of : 11:49 Weeks of gestation at delivery: 39 (.1) gender: Male Weight (pounds): 6 Weight (ounces): 7 presentation: vertex position: Right Occiput Anterior Placenta delivery description: Spontaneous Cord Vessel Description: 3 Vessels, Nuchal Cord, Loose and Clamped/Cut score one minute: 9 score five minutes: 9 Narrative: Jane rapidly progressed to complete dilation. Artificial rupture of membranes was performed with clear fluid noted. She pushed with good maternal effort for approximately 40 minutes. She delivered the head over intact perineum. Nuchal cord was noted but loose and delivered through. She easily delivered the infant's shoulders and head. The was immediately placed skin to skin and had spontaneous cry. Delayed cord clamping was performed. The umbilical cord was then clamped and cut. A segment of the cord was collected for cord gases. Remaining cord blood was collected for typing. With Pitocin running, and gentle downward traction on the cord, the placenta delivered without complications. Slight bleeding was noted and bimanual examine was performed with good tone. A left periurethral and first degree perineal la ceration was noted and repaired in the normal fashion using 2-0 Vicryl. Good hemostasis was noted. Sponge, lap, instrument, and needle counts were correct at the end the procedure. Mom and baby were left bonding in the birthing suite in stable condition. [facility] Delivery Billing Delivery Delivery: Delivery Charge
[2022-03-20] MEDS: BENZOCAINE 20% AER SPR (*SP) 56 GM CAN 1 SPRAY TOPICAL (14:32)
[2022-03-20] MEDS: WITCH HAZEL 40 PADS 1 PAD TOPICAL (14:32)
--- NOTE | 2022-03-20 14:45 | PC.NURSE ---
Patient transferred to post room #283 via wheelchair. Support person present. Oriented to unit, room, information board, rooming in, admission packet and security measures. Patient verbalizes understanding.
--- NOTE | 2022-03-20 15:26 | PC.NURSE ---
[id number] Assisted in labor room 108. . Introductions were made, then consulted with patient to assess needs related to . Mother led the conversation with her experience feeding her infant so far. Mother works well with her with encouragement and education]. Encouraged understanding of the benefits of skin to skin (unwrapping and placing vertically on her chest), responsive feeding and how to watch for early feeding signs, frequency of feeding on demand about every 8-12 times in 24 hours (every 2-3 hours), milk production, duration of feeding, signs of adequate intake/output and how to record on the feeding sheet. Reviewed positioning and ear, shoulder, hip alignment, supporting the breast, asymmetrical latch (off-center), and leading with the chin with a big open side gape. Infant latched optimally to the [right/left] breast in [football/cross cradle] position. Education given to mother of how to visualize suck/swallow ratios and drinking at the breast. Infant was [able/unable] to maintain latch without discomfort to mother. Nipple care reviewed with optimal latch and good positioning. Reminding mother of comfort measures of healing with a warm and wet washcloth to rinse breast, then leave open to air-dry as needed. Reviewed good handwashing when or touching the breast/nipples to prevent infection. Resources used to facilitate learning were used with the [visual handouts/ tool/mom and baby guide]. Mother voiced understanding of responsive feedings, stimulating with skin to skin, hand expressed colostrum, touch, talking to infant to encourage if it has been 2 -3 hours since the start of the last , to call if does not latch or there is discomfort with . Reported to the primary RN.
--- NOTE | 2022-03-20 15:27 | PC.NURSE ---
[id number] Assisted in labor room 108. . Introductions were made, then consulted with patient to assess needs related to . Mother led the conversation with her experience feeding her infant so far. Mother works well with her with encouragement and education. Encouraged understanding of the benefits of skin to skin and placing vertically on her chest, responsive feeding and how to watch for early feeding signs, frequency of feeding on demand about every 8-12 times in 24 hours (every 2-3 hours), milk production, duration of feeding, signs of adequate intake/output and how to record on the feeding sheet. Reviewed positioning and ear, shoulder, hip alignment, supporting the breast, asymmetrical latch (off-center), and leading with the chin with a big open side gape. Mother demonstrates understanding of hand expression and nipple stimulation. Reviewed good handwashing when or touching the breast/nipples to prevent infection. Mother voiced understanding of responsive feedings, stimulating with skin to skin, hand expressed colostrum, touch, talking to infant to encourage if it has been 2 -3 hours since the start of the last , to call if does not latch or there is discomfort with . Reported to the nursery RN.
[2022-03-20] MEDS: ACETAMINOPHEN 500 MG TABLET 1000 MG PO ×2 (15:35→22:05)
[2022-03-21 03:20] VITALS: BP 100/58; PULSE 75; RESP 16; TEMP 37
[2022-03-21] MEDS: LANOLIN (LANSINOH) 7.5 GM CREAM 1 APPLIC TOPICAL (04:48)
[2022-03-21] MEDS: ACETAMINOPHEN 500 MG TABLET 1000 MG PO ×3 (04:48→19:40)
[2022-03-21 05:01] LABS: Hematocrit 30.8 % (37.0-47.0); Hemoglobin 10.2 g/dL (12.0-15.0)
--- NOTE | 2022-03-21 07:23 | P.PNOB_ITS ---
OB - PN: Subj Subjective Date/time seen: 03/21/22 07:23 Narrative: PPD#1 Jane reports doing well today. 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 Her pain is controlled. She is tolerating regular diet, voiding, passing gas, and ambulating without issues. She is breast and bottle feeding. She would like her son circumcised. OB - PN: Obj Data Labs CBC & Chem 7: 03/21/22 03:14 Labs: Laboratory Results - last 24 hr 03/19/22 03/21/22 16:15 03:14 Hgb 10.2 L Hct 30.8 L RPR Non-reactive OB - PN A/P Assessment and Plan (1) Normal vaginal delivery: Code(s): O80 - Encounter for full-term uncomplicated delivery Status: Acute Plan day: 1 Plan: routine care and discharge home (tomorrow) Comments: - Discharge home tomorrow - Pelvic rest; take meds as prescribed - ER return precautions: fever, n/v/abd pain, bleeding, HTN Time Spent With Patient Time: Total time spent is greater than 50% in coordination of care (as docum ented) at patient's floor/unit and/or counseling patient: Review of Systems Constitutional: Constitutional: Denies chills, Denies fever(s) and Denies headache(s) Eyes: Eyes: Denies change in vision ENT: Denies dizziness and Denies headache(s) Cardiovascular: Cardiovascular: Denies chest pain, Denies palpitations and Denies dyspnea Respiratory: Respiratory: Denies cough and Denies dyspnea Gastrointestinal: Gastrointestinal: Denies nausea and Denies vomiting Neurologic: Denies dizziness and Denies headache(s) Endocrine: Endocrine: Denies palpitations Exam Const: General: cooperative, comfortable and no acute distress Orientation/consciousness: patient oriented x3 Resp: Effort & Inspection: normal respiratory effort Auscultation: clear to auscultation bilaterally Cardio: Rate: regular rate GI: Inspection: non-distended GI Palp: No abdominal tenderness and Yes Soft to palpation Auscultation: normal bowel sounds : Other: fundus firm Skin: General skin exam: normal color Neuro: General: patient oriented x3 Extrem: General: normal to inspection Psych: Appearance: grossly normal Affect: normal affect Attitude: cooperative
[2022-03-21 07:45] VITALS: BP 106/68; PULSE 67; RESP 16; TEMP 36.5; O2SAT 98
[2022-03-21] MEDS: MULTIVIT/MIN/PREN/FOL AC/IRON TABLET 1 TAB PO (08:52)
--- NOTE | 2022-03-21 09:01 | WPDANLDPN2 ---
Anes-Prog Note L&D Date/Time: 03/21/22 09:01 Comfortable throughout: labor (pt required two epidurals. reports first one quit working , good relief after replaced.) and delivery Neuraxial method: epidural Epidural/Spinal procedure site: clean & non-tender Neuro status: Neuro function grossly intact. Cardiovascular status: normal Respiratory status: normal Airway patency: baseline Mental status: baseline Post-Op hydration status: normal Vital Signs: Last Vital Signs Temp 98.6 F 03/21/22 03:20 Pulse 75 03/21/22 03:20 Resp 16 03/21/22 03:20 BP 100/58 L 03/21/22 03:20 Pulse Ox 98 03/20/22 15:00 Pain score (VAS): 0 I/O: Intake & Output 03/20/22 03/21/22 03/21/22 23:59 07:59 15:59 Intake Total 940 Balance 940 Post-procedural complaints: none Patient feedback: Patient satisfied with anesthetic care.
--- NOTE | 2022-03-21 10:12 | PC.NURSE ---
Patient viewed the discharge video Mother & Baby Care, The First Two Weeks . Patient was given the opportunity and encouraged to ask questions. Patient verbalized understanding of information shared and has been given the mother/baby guide for home reference.
[2022-03-21 18:45] VITALS: BP 110/73; PULSE 84; RESP 18; TEMP 37.1
[2022-03-21] MEDS: IBUPROFEN 600 MG TABLET PO (23:20)
[2022-03-21] MEDS: WITCH HAZEL 40 PADS 1 PAD TOPICAL (23:21)
[2022-03-22] MEDS: ACETAMINOPHEN 500 MG TABLET 1000 MG PO (05:18)
--- NOTE | 2022-03-22 07:04 | PC.NURSE ---
03/20/22 1530 Consulted with patient to assess needs related to . Reviewed positioning and alignment, supporting breast, off-centered (asymmetrical latch) and leading with the chin with big open wide gape. latched optimally to the right breast in football position. Education given to mother of how to visualize suck/swallow ratios and drinking at the breast. was able to maintain latch without discomfort to mother. Nipple care reviewed with optimal latch and good positioning but have clean hands when touching the nipple/breast. Resources used to facilitate learning were used from the visual handout/mom and baby guide. Mother voiced understanding of the education shared, calling for assistance if the infant does not latch or if there is discomfort with . Reported to the primary RN.
[2022-03-22 07:55] VITALS: BP 128/78; PULSE 76; RESP 16; TEMP 36.9; O2SAT 98
[2022-03-22 08:15] VITALS: PULSE 76; RESP 16; O2SAT 98
[2022-03-22] MEDS: BENZOCAINE 20% AER SPR (*SP) 56 GM CAN 1 SPRAY TOPICAL (08:15)
[2022-03-22] MEDS: WITCH HAZEL 40 PADS 1 PAD TOPICAL (08:15)
[2022-03-22] MEDS: MULTIVIT/MIN/PREN/FOL AC/IRON TABLET 1 TAB PO (08:15)
[2022-03-22] MEDS: IBUPROFEN 600 MG TABLET PO (08:15)
[2022-03-22] MEDS: DOCUSATE SODIUM 100 MG CAPSULE PO (08:15)
--- NOTE | 2022-03-22 13:06 | PC.NURSE ---
1222 - Primary RN is at bedside discharging patient with a feeding plan.
--- NOTE | 2022-03-23 13:26 | PM.OBDSVD ---
DS: Admitting Diagnosis Discharge Date 03/22/22 Admitting Diagnosis induction of labor DS: Discharge Diagnosis Discharge Diagnosis (1) Normal vaginal delivery: Code(s): O80 - Encounter for full-term uncomplicated delivery Status: Acute OB - DS: Summary OB Procedures : Ultrasound OB Procedures Intrapartum: Spontaneous Vag Delivery OB Procedures: : None Peripartum Data Infant Delivery Method: Natural Vaginal Laceration Description: Periurethral and Perineal - 1st Degree complications: none Juliette 1: Gender: Male Disposition of : home Status at Discharge Functional status at discharge: independent ambulation Overall status at discharge: patient is back to baseline Time Spent with Patient Time attestation: Total time spent providing and/or coordinating discharge services: Time spent: Less than 30 minutes Exam Const: General: cooperative, comfortable and no acute distress Orientation/consciousness: patient oriented x3 Resp: Effort & Inspection: normal respiratory effort Auscultation: clear to auscultation bilaterally Cardio: Rate: regular rate GI: Inspection: non-distended GI Palp: No abdominal tenderness and Yes Soft to palpation Auscultation: normal bowel sounds : Other: fundus firm Skin: General skin exam: normal color Neuro: General: patient oriented x3 Extrem: General: normal to inspection Psych: Appearance: grossly normal Affect: normal affect Attitude: cooperative Discharge Plan Discharge Attending physician on discharge: Kerry Bauman Consulting providers: Jayro Harkins ; Bruna Roque Discharging Clinician: Kerry Bauman Anticipated Discharge Date/Time: 03/22/22 12:00 Patient Disposition: Home, Self-Care Activity: may shower and pelvic rest Diet: as tolerated and regular Discharge Instructions: Education: Mom and Baby Guide Given to: Mother Follow-Up: Call your delivering provider's office for an appointment to be seen in: 4 Weeks Mom and baby should come to the [facility] for the follow-up appointment. Appointment Date/Time: March 24, 2022 at 11:00 am What to expect at your follow-up visit: Blood Pressure Check Physical Assessment Call [phone] if you are unable to keep your appointment time. BREAST CARE: * Wear a snug supportive bra. * For engorgement discomfort: Breast Feeding: * Apply warm moist washcloths * Express milk as needed to relieve engorgement * Wear loose clothing Bottle Feeding: * May apply ice packs * For sore nipples: * Identify correct latch-on * Apply warm moist washcloths before and after nursing * Air dry nipples after nursing * May apply Lansinoh cream to nipples EPISIOTOMY/PERINEAL CARE: * Until bleeding stops, use your mulugeta bottle after urinating * Change your pad frequently throughout the day * You may take sitz baths several times a day (fill your bathtub with warm water and soak for 20 minutes.) Do NOT bathe in the water * No tub baths until seen by your physician - You may shower ACTIVITY: * Rest as much as possible. * Do not exercise or lift anything heavier than your baby (such as laundry or other children.) * Avoid stairs or driving as much as possible for 2 weeks. * Do not put anything into the vagina. No douching, tampons, or sexual activity until seen by physician. NOTIFY PHYSICIAN IF YOU HAVE ANY QUESTIONS OR IF ANY OF THE FOLLOWING SYMPTOMS OCCUR: * If your Vaginal area becomes red, swollen, or more painful than what you have experienced in the hospital. * If your vaginal bleeding becomes foul smelling. * If your vaginal bleeding becomes more heavy than a period or if your bleeding changes from the color it is now to bright red. However, you may pass an occasional walnut-sized clot once or twice for the first week . * If you experie
== END 2022-03-22 12:25 | disposition home or self-care (01) | DRG 807 ==
LOC: ANHLDR 15:51 → ANHOB2 03-20 14:53
PROVIDERS: Admitting Provider Obstetrics & Gynecology; PCP Family Medicine; Visit Provider Obstetrics & Gynecology
DX: O99.12 Other diseases of the blood and blood-forming organs and certain disorders involving the immune mechanism complicating childbirth (principal); Z37.0 Single live birth; D69.6 Thrombocytopenia, unspecified; Z3A.39 39 weeks gestation of pregnancy; O36.8330 Maternal care for abnormalities of the fetal heart rate or rhythm, third trimester, not applicable or unspecified; O70.0 First degree perineal laceration during delivery; O71.82 Other specified trauma to perineum and vulva; O99.892 Other specified diseases and conditions complicating childbirth; Q79.8 Other congenital malformations of musculoskeletal system; O69.81X0 Labor and delivery complicated by cord around neck, without compression, not applicable or unspecified
CPT/HCPCS: 36415; 85014; 85018; 85025; 86592; 86850; 86900; 86901; A9270; J2590; J2795; J3010; J7120

== ENCOUNTER → 2022-09-19 14:39 | Outpatient (CLI) | payer BC, SELFPAY ==
--- NOTE | ~2022-09-19 | MR_ITS ---
EXAMINATION: MR brain/brain stem wo/w con DATE: 09/19/2022 15:33 INDICATION: Sudden onset diplopia TECHNIQUE: Magnetic resonance imaging (MRI) of the brain and brainstem was performed without and with 14 mL Multihance intravenous contrast. Sequences included sagittal and axial T1-weighted SE, axial d iffusion-weighted FS SE, axial T2*-weighted GRE, axial 3D SWAN, axial T2-weighted FLAIR, and axial T2 -weighted FSE. Postcontrast axial and coronal T1-weighted SE was obtained. Apparent diffusion coeffic ient (ADC) maps were created. COMPARISON: None. FINDINGS: There is prominent metallic magnetic field artifact resulting from orthodontic instrumentation. This limits evaluation in the anterior cranial fossa, portion of the middle cranial fossa and portions of the more cephalad anterior bilateral frontal lobes on the diffusion-weighted imaging and to lesser de gree on the susceptibility weighted T2* weighted imaging. Where not obscured there are no areas of re stricted diffusion to suggest acute infarction or foci of signal dropout on T2*weighted imaging to bran ggest blood products related to prior intracranial hemorrhage. No abnormal intracranial mass lesion a bnormally enhancing brain lesions. There are no intraparenchymal signal abnormalities seen on the [facility] pulse sequences. The ventricles are symmetric and normal in size. There are no abnormal extra-axia l fluid collections. Flow voids are seen in the cerebral arteries on the T2-weighted sequences consis tent with their expected patency. Visualized orbits and soft tissues are unremarkable. IMPRESSION: 1. Normal brain MR but with limited diffusion weighted and susceptibility sensitive imaging in the an terior brain resulting from magnetic field artifact related to orthodontic instrumentation in the ora l cavity. Reviewed, dictated and finalized at location B. UTERIZED MILL MILL RECORDER IMPRESSION: 1. Normal brain MR but with limited diffusion weighted and susceptibility sensi tive imaging in the anterior brain resulting from magnetic field artifact relat ed to orthodontic instrumentation in the oral cavity.
== END ==
PROVIDERS: PCP Family Medicine; Visit Provider Family Medicine
DX: H53.2 Diplopia (principal)
CPT/HCPCS: 70553; A9577

== ENCOUNTER 2023-03-19 16:02 | Outpatient (CLI) | payer BC, SELFPAY ==
[2023-03-19 16:26] LABS: Basophils Percent Auto 0.4 % (0.2-1.2); Eosinophils Absolute Auto 0.1 K/mm3 (0-0.3); Eosinophils Percent Auto 1.9 % (0-4.4); Hemoglobin 13.6 g/dL (12.0-15.0); Immature Granulocyte Absolute 0.02 K/mm3 (0.00-0.031); Immature Granulocyte Percent A 0.3 % (0-0.5); Lymphocytes Absolute Auto 1.83 K/mm3 (0.9-3.2); Lymphocytes Percent Auto 24.3 % (18.3-44.2); Mean Corpuscular HGB Conc 33.2 g/dl (32-36); Mean Corpuscular Hemoglobin 28.9 pg (26-34); Mean Platelet Volume 10.4 fl (7.4-10.4); Monocytes Absolute Auto 0.4 K/mm3 (0.1-0.6); Monocytes Percent Auto 5.8 % (2.6-8.5); Neutrophils Absolute Auto 5.1 K/mm3 (1.3-6.7); Neutrophils Percent Auto 67.3 % (45.5-73.1); Platelet Count Result 240 k/mm3 (150-375); Red Blood Count 4.71 M/mm3 (4.2-5.4); White Blood Count 7.5 K/mm3 (4.5-10.0)
[2023-03-19 19:47] LABS: HIV 1/2 Ab P24 Ag Result Negative (Negative)
[2023-03-19 20:21] LABS: Hepatitis B Surface Antigen Negative (Negative); Rubella IgG Antibody 53.9 IU/ML
[2023-03-20 12:12] LABS: Rapid Plasma Reagin Non-Reactive (NonReactive)
[2023-03-23 17:46] LABS: CMV IgG Antibody <0.60 U/mL (<0.60)
== END 2023-03-19 16:03 | disposition home or self-care (01) ==
LOC: ANHLAB 16:03
PROVIDERS: PCP Family Medicine; Visit Provider Obstetrics & Gynecology
DX: N94.89 Other specified conditions associated with female genital organs and menstrual cycle (principal)
CPT/HCPCS: 36415; 84702; 85025; 86592; 86644; 86703; 86747; 86762; 86787; 86850; 86900; 86901; 87086; 87340; G0432

== ENCOUNTER 2023-08-21 07:56 | Outpatient (CLI) | payer BC, SELFPAY ==
[2023-08-21 09:40] LABS: Basophils Percent Auto 0.3 % (0.2-1.2); Eosinophils Absolute Auto 0.1 K/mm3 (0-0.3); Hematocrit 33.7 % (37.0-47.0); Hemoglobin 10.8 g/dL (12.0-15.0); Immature Granulocyte Absolute 0.09 K/mm3 (0.00-0.031); Immature Granulocyte Percent A 1.3 % (0-0.5); Lymphocytes Absolute Auto 1.04 K/mm3 (0.9-3.2); Lymphocytes Percent Auto 14.5 % (18.3-44.2); Mean Corpuscular Hemoglobin 29.3 pg (26-34); Mean Corpuscular Volume 91.6 fl (80-100); Mean Platelet Volume 10.9 fl (7.4-10.4); Monocytes Absolute Auto 0.5 K/mm3 (0.1-0.6); Monocytes Percent Auto 6.7 % (2.6-8.5); Neutrophils Absolute Auto 5.5 K/mm3 (1.3-6.7); Neutrophils Percent Auto 76.2 % (45.5-73.1); Platelet Count Result 175 k/mm3 (150-375); Red Blood Count 3.68 M/mm3 (4.2-5.4); Red Cell Distribution Width 12.4 % (11.5-14.5); White Blood Count 7.2 K/mm3 (4.5-10.0)
[2023-08-21 10:06] LABS: Glucose 1 Hour PP 50gm Dose 129 mg/dL
[2023-08-21 10:38] LABS: HIV 1/2 Ab P24 Ag Result Negative (Negative)
== END 2023-08-21 07:57 | disposition home or self-care (01) ==
LOC: ANHLAB 07:58
PROVIDERS: PCP Family Medicine; Visit Provider Obstetrics & Gynecology
DX: Z34.90 Encounter for supervision of normal pregnancy, unspecified, unspecified trimester (principal); Z3A.00 Weeks of gestation of pregnancy not specified
CPT/HCPCS: 36415; 82947; 85025; 86703; G0432

== ENCOUNTER 2023-10-03 17:25 | Observation (INO) | payer BC, SELFPAY ==
[2023-10-03] VITALS (30 sets, daily range): BP systolic 115–128; BP diastolic 57–74; PULSE 74–96; O2SAT 93–100
--- NOTE | 2023-10-03 18:17 | OBADM ---
This patient, Jane Babin, admitted to the OB room Labor/Delivery/Recovery 107 for observation. Patient/family oriented to hospital policies and general routines including ID bracelet, bed and alarms, visiting hours, pain management, procedures, bathroom and other care routines, personal items, smoking policy, room service/diet, and visiting hours. Patient/Family are encouraged to report perceived risks to care and to ask questions if they do not understand what they are told or what they should do.
--- NOTE | 2023-10-03 18:44 | PC.NURSE ---
184: Dr. Velasco notified of pt status, instructed to give one dose of terbutaline, if contractions are gone in an hour pt can be discharged.
[2023-10-03] MEDS: TERBUTALINE SULFATE 1 MG/ML VIAL 0.25 MG SUB-Q (18:59)
--- NOTE | 2023-10-03 20:18 | PC.NURSE ---
went in to patients room one hour after terbutaline dose, pt states she felt a mild contraction but it was not as painful as it was prior. while in the room with patient, she had a contraction that was 10 minutes after her last contraction. pt states it felt mild as well. discussed plan of care options with patient and patient requested me call Dr. Velasco and see if she should go home or stay. Dr. Velasco was notified of pt status at 2014. Instructed to monitor pt for an hour if the patient requests, if contractions are still spaced out pt can be discharged.
--- NOTE | 2023-10-03 22:55 | PC.NURSE ---
2050: discussed plan of care with patient, patient states she would like to go home. Discharge instructions given, verbalized understanding on when to come back to OB department.
--- NOTE | 2023-10-08 08:32 | PM.OBTRLD ---
OB - Triage/Final Diagnosis Visit Information Date of evaluation: 10/03/23 Reason for evaluation: threatened labor Comments/Additional reasons for admission: I have assessed the risk for this patient, Jane Babin, and determined that she would benefit from observation care.
== END 2023-10-03 20:52 | disposition home or self-care (01) ==
PROVIDERS: Admitting Provider Obstetrics & Gynecology; PCP Family Medicine; Visit Provider Student in an Organized Health Care Education/Training Program
DX: O47.03 False labor before 37 completed weeks of gestation, third trimester (principal); Z3A.34 34 weeks gestation of pregnancy
CPT/HCPCS: 96372; G0378; G0379; J3105

== ENCOUNTER 2023-10-09 19:58 | Observation (INO) | payer BC, SELFPAY ==
[2023-10-09] VITALS (10 sets, daily range): BP systolic 119–131; BP diastolic 78–86; PULSE 71–118; O2SAT 98–100; BMI 27.5
--- NOTE | 2023-10-09 20:15 | OBADM ---
This patient, Jane Babin, admitted to the OB room OB Post 115 for observation. Patient/family oriented to hospital policies and general routines including ID bracelet, bed and alarms, visiting hours, pain management, procedures, bathroom and other care routines, personal items, smoking policy, room service/diet, and visiting hours. Patient/Family are encouraged to report perceived risks to care and to ask questions if they do not understand what they are told or what they should do.
[2023-10-09 21:19] LABS: Appearance Urine Clear (Clear); Bacteria Urine None Seen /hpf; Bilirubin Urine Negative (Negative); Blood Urine Negative (Negative); Color Urine Yellow (Yellow); Glucose Urine UA Negative (Negative); Ketones Urine Negative (Negative); Leukocyte Esterase Ur Trace LEU/UL (Negative); Need Manual Microscopic Reviewed; Nitrate Urine Negative (Negative); Non Pathogenic Casts 0-2; Protein Urine Trace mg/dL (Negative); RBC Urine 0-2 /hpf (0-2); Specific Grav Ur 1.015 (1.001-1.035); Squamous Epithelial Cell Urine None seen /hpf (Few); Urobilinogen Urine 0.2 mg/dL (<2.0); WBC Urine 0-5 /hpf
[2023-10-09 21:21] LABS: Add Urine Microscopic? YES
--- NOTE | 2023-10-09 21:47 | PC.NURSE ---
[address] Govea orders given to dc this patient with general OB precautions
--- NOTE | 2023-10-10 08:36 | P.PNOB_ITS ---
OB - Triage/Final Diagnosis Visit Information Reason for evaluation: threatened labor Comments/Additional reasons for admission: I have assessed the risk for this patient, Jane Babin, and determined that she would benefit from observation care. Evaluation Laboratory results: Laboratory Tests 10/09/23 21:01 Urine Color Yellow Urine Appearance Clear Urine pH 7.0 Ur Specific [place] 1.015 Urine Protein Trace Urine Glucose (UA) Negative Urine Ketones Negative Ur Blood (Man) Negative Urine Nitrate Negative Urine Bilirubin Negative Urine Urobilinogen 0.2 Add Ur Microanalysis Reviewed Leukocyte Esterase Rfl Trace H Urine RBC 0-2 Urine WBC 0-5 Ur Squamous Epith Cells None seen Urine Bacteria None seen Urine Casts 0-2 Vital signs: Vital Signs - 24 hr 10/09/23 20:13 10/09/23 20:16 10/09/23 20:46 Pulse Rate 89 87 78 Blood Pressure 131/80 127/78 129/78 Pulse Oximetry 10/09/23 21:01 10/09/23 21:31 10/09/23 21:33 Pulse Rate 118 H 75 Blood Pressure 119/86 127/84 Pulse Oximetry 99 10/09/23 21:38 10/09/23 21:43 10/09/23 21:46 Pulse Rate 75 Blood Pressure 123/85 Pulse Oximetry 100 100 10/09/23 21:48 Pulse Rate Blood Pressure Pulse Oximetry 98
== END 2023-10-09 21:57 | disposition home or self-care (01) ==
PROVIDERS: Obstetrics & Gynecology; Admitting Provider Obstetrics & Gynecology; PCP Family Medicine; Visit Provider Obstetrics & Gynecology
DX: O47.03 False labor before 37 completed weeks of gestation, third trimester (principal); Z3A.35 35 weeks gestation of pregnancy
CPT/HCPCS: 59025; 81001; G0378; G0379

== ENCOUNTER 2023-10-11 09:39 | Outpatient (CLI) | payer BC, SELFPAY ==
[2023-10-11] VITALS (7 sets, daily range): BP systolic 110–126; BP diastolic 67–84; PULSE 77–86; TEMP 36.8
[2023-10-11] MEDS: BETAMETHASONE SOD PHOS/ACETATE 30 MG/5 ML VIAL 12 MG IM (11:44)
--- NOTE | 2023-10-12 13:10 | PC.NURSE ---
Pt arrived to dept on 10/12 for second dose of celestone. Reported abdomen, chest, and upper arms are red and itchy after receiving injection yesterday. Reported this to Dr. Bauman, order received to not administer dose and pt may take benadryl for itching.
== END 2023-10-11 12:46 | disposition home or self-care (01) ==
LOC: ANHOBOP 09:43 → ANHOBPP 09:44
PROVIDERS: PCP Family Medicine; Visit Provider Obstetrics & Gynecology
DX: O13.9 Gestational [pregnancy-induced] hypertension without significant proteinuria, unspecified trimester (principal); Z3A.00 Weeks of gestation of pregnancy not specified
CPT/HCPCS: 96372; 99199; J0702

== ENCOUNTER 2023-10-21 14:12 | Outpatient (CLI) | payer BC, SELFPAY ==
[2023-10-21 14:31] VITALS: BP 122/71; PULSE 96
[2023-10-21 14:46] VITALS: BP 119/78; PULSE 89
[2023-10-21 14:55] VITALS: BP 119/78; PULSE 93
== END 2023-10-21 14:58 | disposition home or self-care (01) ==
LOC: ANHOBOP 14:50 → ANHLDR 14:53
PROVIDERS: PCP Family Medicine; Visit Provider Obstetrics & Gynecology
DX: Z34.90 Encounter for supervision of normal pregnancy, unspecified, unspecified trimester (principal); Z3A.00 Weeks of gestation of pregnancy not specified
CPT/HCPCS: 59025; 84112; 99199

== ENCOUNTER 2023-10-31 10:10 | Inpatient (IN) | payer BC, SELFPAY ==
[2023-10-31] VITALS (93 sets, daily range): BP systolic 83–142; BP diastolic 69–103; PULSE 55–107; RESP 16; TEMP 36.4–36.8; O2SAT 81–100; BMI 28.6
[2023-10-31] MEDS: LACTATED RINGERS 1,000 ML 125 ML IV CONT ×2 (10:30→11:33)
[2023-10-31 10:54] LABS: Basophils Percent Auto 0.2 % (0.2-1.2); Eosinophils Percent Auto 0.5 % (0-4.4); Hematocrit 35.3 % (37.0-47.0); Hemoglobin 11.2 g/dL (12.0-15.0); Immature Granulocyte Absolute 0.08 K/mm3 (0.00-0.031); Immature Granulocyte Percent A 0.9 % (0-0.5); Lymphocytes Absolute Auto 1.03 K/mm3 (0.9-3.2); Lymphocytes Percent Auto 11.8 % (18.3-44.2); Mean Corpuscular HGB Conc 31.7 g/dl (32-36); Mean Corpuscular Hemoglobin 27.7 pg (26-34); Mean Corpuscular Volume 87.2 fl (80-100); Mean Platelet Volume 11.7 fl (7.4-10.4); Monocytes Absolute Auto 0.7 K/mm3 (0.1-0.6); Monocytes Percent Auto 7.7 % (2.6-8.5); Neutrophils Absolute Auto 6.9 K/mm3 (1.3-6.7); Neutrophils Percent Auto 78.9 % (45.5-73.1); Platelet Count Result 162 k/mm3 (150-375); Red Blood Count 4.05 M/mm3 (4.2-5.4); Red Cell Distribution Width 13.7 % (11.5-14.5); White Blood Count 8.7 K/mm3 (4.5-10.0)
--- NOTE | 2023-10-31 11:06 | WPDANESEPP ---
Anes - Eval Pre Procedure Procedure: Labor Epidural Date/Time: 10/31/23 11:06 Surgeon: Krista Preop Diagnosis: Labor Pain Pre Op Diagnosis: IOL Patient Data Age: 33 Gender: F Height: Weight: Last Vital Signs Pulse 84 10/31/23 11:02 BP 131/94 H 10/31/23 11:02 Allergies Allergy/AdvReac Type Severity Reaction Status Date / Time diclofenac Allergy Mild swelling Verified 10/25/23 09:40 and throat numbness codeine AdvReac Severe Hallucinati Verified 10/25/23 09:40 [From Tylenol-Codeine #3] ng Home Medications Medication Instructions Recorded Confirmed Type sertraline 50 mg tablet 50 mg PO DAILY #90 tabs 08/29/23 10/25/23 Rx ferrous sulfate 325 mg (65 mg 325 mg PO DAILY 10/15/23 10/25/23 History iron) tablet hydrocortisone-acetic acid 1 %-2 % 3 drp RIGHT EAR TID #10 mL 10/17/23 10/25/23 Rx ear drops Laboratory Tests 10/31/23 10:47 WBC 8.7 K/mm3 (4.5-10.0) RBC 4.05 L M/mm3 (4.2-5.4) Hgb 11.2 L g/dL (12.0-15.0) Hct 35.3 L % (37.0-47.0) MCV 87.2 fl (80-100) MCH 27.7 pg (26-34) MCHC 31.7 L g/dl (32-36) RDW 13.7 % (11.5-14.5) Plt Count 162 k/mm3 (150-375) MPV 11.7 H fl (7.4-10.4) Immature Gran % (Auto) 0.9 H % (0-0.5) Neut % (Auto) 78.9 H % (45.5-73.1) Lymph % (Auto) 11.8 L % (18.3-44.2) [place] % (Auto) 7.7 % (2.6-8.5) Eos % (Auto) 0.5 % (0-4.4) Baso % (Auto) 0.2 % (0.2-1.2) Lymph # (Auto) 1.03 K/mm3 (0.9-3.2) [place] # (Auto) 0.7 H K/mm3 (0.1-0.6) Eos # (Auto) 0.0 K/mm3 (0-0.3) Baso # (Auto) 0.0 K/mm3 (0.0-0.1) Abs Immat Gran (auto) 0.08 H K/mm3 (0.00-0.031) Absolute Neuts (auto) 6.9 H K/mm3 (1.3-6.7) Absolute Nucleated RBC 0.0 K/mm3 (0.0-0.012) Nucleated RBC % 0.0 % (0.0-0.2) RPR Pending Patient hx anesthesia problems: none Family hx anesthesia problems: none Results Review: All pre-operative results and documents have been reviewed as part of the pre-operative evaluation. 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 Family History Family History Father Acute myocardial infarction Mother Diabetes mellitus Hypertension Heart disease Hypercholesterolemia Social History Social History Social History: Smoking status: Never smoker Second hand tobacco smoke exposure: No Alcohol intake: never Substance use: never Substance use type: does not use Lack of Transportation: No Lack of Food: Never True Current Housing: I Have Housing Concerned About Future Housing: No Difficulty Paying Gas/Electric Bills: No Difficulty Paying for Meds: No Currently Unemployed: No Education: Decline to Answer Difficulty w/ Childcare or Family Care: No Living arrangements: with family Occupation/Education: occupation Gender identity (if verbalized by the patient): Female Sexual Orientation (if Verbalized by the Patient): Straight or Heterosexual Spiritual care concerns: No Exam Day of Procedure 10/31/23 11:06 Patient weight: normal Heart: regular rate and rhythm Lungs: normal air movement Airway: Mallampati scale Neurological: alert and oriented
--- NOTE | 2023-10-31 11:51 | LDADM ---
This patient, Jane Babin, was admitted to Labor/Delivery/Recovery 105 on 10/31/23 at 10:10. Plans for labor, pain management and were discussed with patient. Patient/family oriented to hospital policies and general routines including ID bracelet, bed and alarms, visiting hours, pain management, procedures, bathroom and other care routines, personal items, smoking policy, room service/diet and guest tray routines, infant security routines, and visiting hours. Patient/Family are encouraged to report perceived risks to care and to ask questions if they do not understand what they are told or what they should do. See [facility] for further documentation.
--- NOTE | 2023-10-31 13:12 | WPDHPUPDATE1 ---
History and Physical Update Update Date/Time: 10/31/23 13:12 33-year-old who presents at 38 weeks 1 day in labor History and Physical has been reviewed, including an updated exam of the patient. There are NO changes in the patient's condition. Risks, benefits, and alternatives have been discussed and questions answered. Patient agrees to proceed with procedure. admit to L&D Routine admission orders Rh positive GBS negative Expectant management Plan for AROM and pitocin augmentation as needed
[2023-10-31] MEDS: OXYTOCIN 30 UNITS/NS 500 ML 30 UNITS/500 ML BAG IV CONT (13:46)
[2023-10-31 14:03] LABS: Rapid Plasma Reagin Non-Reactive (NonReactive)
[2023-10-31] MEDS: OXYTOCIN 30 UNITS/NS 500 ML 30 UNITS/500 ML BAG 125 UNITS IV CONT (15:52)
--- NOTE | 2023-10-31 16:07 | P.PCNOB_ITS ---
OB - Vaginal Delivery Note Procedure Delivery date: 10/31/23 Induction method: None Delivery augmentation: Rupture of Membranes Delivery monitor: External FHT and External Uterine Route of delivery: Episiotomy description: None Laceration Description: Perineal - 2nd Degree Delivery repair: vicryl Specimen: No Quantitative Blood Loss (ml): 200 Anesthesia type: Epidural Disposition: Floor Complications: No immediate complications Narrative: Patient pushed for a spontaneous vaginal delivery. The fetus was delivered atraumatically and placed on the maternal abdomen. The cord was clamped and cut after 1 minute of life. The cord was double clamped and cut and a segment of cord was collected for cord gases. Cord blood was collected for blood type and Coomb's testing. The placenta delivered spontaneously and was noted to be intact. The perineum was inspected and a second degree perineal laceration was noted. The laceration was repaired with 3-0 vicryl in the usual running fashion. The uterus was firm and good hemostasis was noted. [place] Baby Date of : 10/31/23 Time of : 15:18 Weeks of gestation at delivery: 38 Weight (pounds): 7 Weight (ounces): 2 presentation: vertex position: Right Occiput Anterior Placenta delivery description: Spontaneous Cord Vessel Description: 3 Vessels score one minute: 8 score five minutes: 9 AMG Delivery Billing Delivery Delivery: Delivery Charge
[2023-10-31] MEDS: ACETAMINOPHEN 325 MG TABLET 650 MG PO (17:00)
[2023-10-31] MEDS: BENZOCAINE 20% AER SPR (*SP) 56 GM CAN 1 SPRAY TOPICAL (17:36)
[2023-10-31] MEDS: WITCH HAZEL 40 PADS 1 PAD TOPICAL (17:36)
[2023-10-31] MEDS: IBUPROFEN 600 MG TABLET PO (19:03)
[2023-11-01] MEDS: ACETAMINOPHEN 325 MG TABLET 650 MG PO ×2 (05:43→15:01)
[2023-11-01 06:27] LABS: Hematocrit 30.7 % (37.0-47.0); Hemoglobin 9.7 g/dL (12.0-15.0)
[2023-11-01 07:20] VITALS: BP 116/71; PULSE 72; RESP 16; TEMP 36.7; O2SAT 99
--- NOTE | 2023-11-01 07:45 | P.PNOB_ITS ---
OB - PN: Subj Subjective Date/time seen: 11/01/23 07:45 Patient comments: no complaints, pain well controlled and tolerating diet [place] feeding status: exclusively breast feeding Narrative: patient doing well this AM. No complaints. Pain is well controlled. She reports minimal bleeding. She is ambulating and voiding without difficulty. She is tolerating PO. She denies N/V, fever, chills. OB - PN: Obj Data Labs 11/01/23 05:39 Labs: Laboratory Results - last 24 hr 10/31/23 11/01/23 10:47 05:39 WBC 8.7 RBC 4.05 L Hgb 11.2 L 9.7 L Hct 35.3 L 30.7 L MCV 87.2 MCH 27.7 MCHC 31.7 L RDW 13.7 Plt Count 162 MPV 11.7 H Immature Gran % (Auto) 0.9 H Neut % (Auto) 78.9 H Lymph % (Auto) 11.8 L [place] % (Auto) 7.7 Eos % (Auto) 0.5 Baso % (Auto) 0.2 Lymph # (Auto) 1.03 [place] # (Auto) 0.7 H Eos # (Auto) 0.0 Baso # (Auto) 0.0 Abs Immat Gran (auto) 0.08 H Absolute Neuts (auto) 6.9 H Absolute Nucleated RBC 0.0 Nucleated RBC % 0.0 RPR Non-reactive Blood Type A Positive Antibody Screen Negative OB - PN A/P Plan day: 1 Plan: routine care Comments: patient doing well H/H 9.06/03, asymptomatic. continue iron supplementation continue routine care pt desires circumcision. risks, benefits, alternatives discussed. will plan for infant circumcision this morning Time Spent With Patient Time: Total time spent is greater than 50% in coordination of care (as documented) at patient's floor/unit and/or counseling patient: Time with patient: less than 15 minutes Review of Systems Review of Systems: All systems reviewed & are unremarkable except as noted in HPI and below Exam Const: General: comfortable and no acute distress Resp: Effort & Inspection: normal respiratory effort Cardio: Rate: regular rate GI: GI Palp: Yes Soft to palpation and No Tenderness to palpation present (GI) Auscultation: normal bowel sounds Other: fundus firm and below umbilicus. Psych: Affect: normal affect
--- NOTE | 2023-11-01 10:02 | WPDANLDPN2 ---
Anes-Prog Note L&D Date/Time: 11/01/23 10:02 Comfortable throughout: labor and delivery Neuraxial method: epidural Epidural/Spinal procedure site: tender Neuro status: Neuro function grossly intact. Cardiovascular status: normal Respiratory status: normal Airway patency: baseline Mental status: baseline Post-Op hydration status: normal Vital Signs: Last Vital Signs Temp 36.7 C 11/01/23 07:20 Pulse 72 11/01/23 07:20 Resp 16 11/01/23 07:20 BP 116/71 11/01/23 07:20 Pulse Ox 99 11/01/23 07:20 O2 Del Method Room Air 10/31/23 11:50 Pain score (VAS): 3/10 Post-procedural complaints: none Patient feedback: Patient satisfied with anesthetic care.
[2023-11-01] MEDS: DOCUSATE SODIUM 100 MG CAPSULE PO (11:30)
[2023-11-01] MEDS: WITCH HAZEL 40 PADS 1 PAD TOPICAL (11:30)
[2023-11-01] MEDS: IBUPROFEN 600 MG TABLET PO ×2 (11:30→19:37)
[2023-11-01] MEDS: FERROUS SULFATE 325 MG TABLET DR BY MOUTH (11:30)
[2023-11-01 11:33] VITALS: BP 133/82; PULSE 82; RESP 16; TEMP 37.1; O2SAT 99
[2023-11-01] MEDS: guaiFENesin 12 HR 600 MG TABCR 1200 MG PO (12:25)
[2023-11-01] MEDS: BENZOCAINE/MENTHOL (*BKC) 18 EA LOZENGE 1 LOZENGE PO (12:25)
--- NOTE | 2023-11-01 12:41 | PC.NURSE ---
1200 Pt reports feeling sinus pressure that is making her ears feel full and a sore throat. She also reports a headache. Afebrile. Denies cough, body aches, chills. Dr. Velasco notified and orders received.
[2023-11-01 16:35] VITALS: BP 120/78; PULSE 80; RESP 16; TEMP 37; O2SAT 100
[2023-11-01 19:35] VITALS: BP 134/84; PULSE 84; RESP 16; TEMP 36.7
[2023-11-02] MEDS: guaiFENesin 12 HR 600 MG TABCR 1200 MG PO (00:06)
--- NOTE | 2023-11-02 06:39 | PM.OBDSVD ---
DS: Admitting Diagnosis Discharge Date 11/02/23 Admitting Diagnosis Labor DS: Discharge Diagnosis Discharge Diagnosis (1) Normal vaginal delivery of second : Code(s): O80 - Encounter for full-term uncomplicated delivery Status: Acute OB - DS: Summary OB Procedures : Ultrasound OB Procedures Intrapartum: Spontaneous Vag Delivery OB Procedures: : None Peripartum Data Delivery Method: Natural Vaginal Laceration Description: Perineal - 2nd Degree Episiotomy description: None complications: none [place] 1: Gender: Male Disposition of : home Status at Discharge Functional status at discharge: independent ambulation Overall status at discharge: patient is back to baseline Time Spent with Patient Time attestation: Total time spent providing and/or coordinating discharge services: Time spent: Less than 30 minutes Exam Const: General: cooperative, healthy appearing, comfortable and no acute distress Orientation/consciousness: patient oriented x3 Resp: Effort & Inspection: normal respiratory effort Auscultation: clear to auscultation bilaterally Cardio: Rate: regular rate GI: Inspection: non-distended GI Palp: No abdominal tenderness and Yes Soft to palpation Auscultation: normal bowel sounds : Other: fundus firm Skin: General skin exam: normal color Neuro: General: patient oriented x3 Extrem: General: normal to inspection Psych: Appearance: grossly normal Affect: normal affect Attitude: cooperative Discharge Plan Discharge Attending physician on discharge: Kerry Bauman Discharging Clinician: Kerry Bauman Anticipated Discharge Date/Time: 11/02/23 11:00 Patient Disposition: Home, Self-Care Activity: may shower and pelvic rest Diet: regular Patient Instructions: Vaginal Delivery (DC) Stand Alone Forms: General Discharge Information Follow-up/Referrals: César Velasco MD [Physician] - 4 Weeks Discharge Medications: New docusate sodium 100 mg Capsule 100 mg PO BID PRN (Reason: Constipation) Qty: 100 0RF acetaminophen 500 mg tablet 1,000 mg PO TID Qty: 60 0RF Continued ferrous sulfate 325 mg (65 mg iron) Tablet 325 mg PO DAILY sertraline 50 mg tablet 150 mg PO DAILY Rx Instructions: to take with sertraline 100mg to equal 150mg daily hydrocortisone-acetic acid 1-2 % drops 3 drp RIGHT EAR TID Qty: 10 0RF Date of admission: 10/31/23 10:10 Primary Care Provider: Latanya Lazcano Admitting Provider: César Velasco Attending physician on admission: César Velasco Condition: Stable
[2023-11-02] MEDS: FERROUS SULFATE 325 MG TABLET DR BY MOUTH (06:59)
[2023-11-02] MEDS: DOCUSATE SODIUM 100 MG CAPSULE PO (07:00)
[2023-11-02] MEDS: IBUPROFEN 600 MG TABLET PO (07:00)
[2023-11-02 07:40] VITALS: BP 123/79; PULSE 81; RESP 16; TEMP 36.9; O2SAT 98
[2023-11-03 09:22] VITALS: BP 131/83; PULSE 88; RESP 18; TEMP 36.6; O2SAT 100
== END 2023-11-02 10:15 | disposition home or self-care (01) | DRG 807 ==
LOC: ANHLDR 10:53 → ANHOB2 23:46 → ANHLDR 11-06 07:23 → ANHOB2 11-06 07:23
PROVIDERS: Admitting Provider Student in an Organized Health Care Education/Training Program; PCP Family Medicine; Visit Provider Obstetrics & Gynecology
DX: O77.0 Labor and delivery complicated by meconium in amniotic fluid (principal); Z37.0 Single live birth; Z3A.38 38 weeks gestation of pregnancy; O70.1 Second degree perineal laceration during delivery
CPT/HCPCS: 36415; 85014; 85018; 85025; 86592; 86850; 86900; 86901; A9270; J2590; J2795; J7120

== ENCOUNTER 2024-03-10 11:31 | Outpatient (CLI) | payer BC, SELFPAY ==
[2024-03-10 12:09] LABS: Basophils Percent Auto 0.4 % (0.2-1.2); Eosinophils Absolute Auto 0.1 K/mm3 (0-0.3); Eosinophils Percent Auto 1.8 % (0-4.4); Hematocrit 41.8 % (37.0-47.0); Hemoglobin 13.5 g/dL (12.0-15.0); Immature Granulocyte Absolute 0.01 K/mm3 (0.00-0.031); Immature Granulocyte Percent A 0.2 % (0-0.5); Lymphocytes Absolute Auto 1.51 K/mm3 (0.9-3.2); Lymphocytes Percent Auto 30.8 % (18.3-44.2); Mean Corpuscular HGB Conc 32.3 g/dl (32-36); Mean Corpuscular Hemoglobin 29.2 pg (26-34); Mean Corpuscular Volume 90.3 fl (80-100); Mean Platelet Volume 10.8 fl (7.4-10.4); Monocytes Absolute Auto 0.4 K/mm3 (0.1-0.6); Monocytes Percent Auto 7.5 % (2.6-8.5); Neutrophils Absolute Auto 2.9 K/mm3 (1.3-6.7); Neutrophils Percent Auto 59.3 % (45.5-73.1); Platelet Count Result 212 k/mm3 (150-375); Red Blood Count 4.63 M/mm3 (4.2-5.4); Red Cell Distribution Width 12.8 % (11.5-14.5); White Blood Count 4.9 K/mm3 (4.5-10.0)
[2024-03-10 12:40] LABS: Anion Gap 5 mmol/L (4-12); Blood Urea Nitrogen 14 mg/dL (7-17); Calcium 9.3 mg/dL (8.4-10.2); Carbon Dioxide 28 mmol/L (22-30); Chloride 104 mmol/L (98-107); Estimated Glomerular Filt Rate > 60; Glucose 78 mg/dL (65-110); Potassium 4.6 mmol/L (3.4-5.0); Sodium 137 mmol/L (137-145)
[2024-03-10 13:04] LABS: Free T4 Free Thyroxine 1.12 ng/mL (0.78-2.19)
== END 2024-03-10 11:32 | disposition home or self-care (01) ==
LOC: ANHLAB 11:33
PROVIDERS: PCP Family Medicine; Referring Provider Family Medicine; Visit Provider Physician Assistant
DX: Z00.00 Encounter for general adult medical examination without abnormal findings (principal); E07.9 Disorder of thyroid, unspecified; R53.1 Weakness; R53.83 Other fatigue
CPT/HCPCS: 36415; 80048; 84439; 84443; 85025

== ENCOUNTER 2024-03-13 15:20 | Outpatient (CLI) | payer BC, SELFPAY ==
--- NOTE | ~2024-03-13 | XR_ITS ---
EXAMINATION: XR chest 2V DATE: 03/13/2024 15:42 INDICATION: Chest pain TECHNIQUE: PA and lateral views of the chest were obtained. COMPARISON: None FINDINGS: The lungs are clear with no focal airspace opacities, pulmonary edema, pleural effusion or pneumothor ax. The cardiomediastinal silhouette is normal. Mild thoracic levocurvature. IMPRESSION: 1. No acute cardiopulmonary disease. Reviewed, dictated and finalized at location A.
== END 2024-03-13 15:21 ==
LOC: GOSHIMG 15:22
PROVIDERS: PCP Family Medicine; Visit Provider Physician Assistant
DX: R07.9 Chest pain, unspecified (principal)
CPT/HCPCS: 71046

== ENCOUNTER 2024-03-26 08:49 | Outpatient (CLI) | payer BC, SELFPAY ==
--- NOTE | 2024-04-01 12:35 | WPDHOLTEREM ---
Holter/Event Monitor Holter/Event Monitor Date of procedure: 03/26/24 Holter/Event Procedure: 48 Hr Holter Monitor Indications: Palpitations Conclusion: 1. 48 hour holter monitor on 03/26/24. 2. Underlying rhythm is sinus rhythm. HR range 55-150 bpm; average HR 77 bpm. HR at 150 bpm was at 11:28. 3. There are 52 premature supraventricular complexes, 1 supraventricular couplet and 1 supraventricular triplet. No supraventricular tachycardia. 4. There are 3 premature ventricular complexes and 1 ventricular couplet. No ventricular tachycardia. 5. No sinoatrial or atrioventricular blocks. No significant pauses greater than 2 seconds. 6. Patient reports symptoms of dizziness, seeing stars , chest tightness which demonstrate sinus rhythm, HR range 64-87 bpm.
== END 2024-03-26 08:50 | disposition home or self-care (01) ==
PROVIDERS: PCP Family Medicine; Visit Provider Physician Assistant
DX: R00.2 Palpitations (principal)
CPT/HCPCS: 93225; 93226

== ENCOUNTER 2024-05-23 09:20 | Outpatient (CLI) | payer BC, SELFPAY ==
--- NOTE | 2024-05-23 09:23 | EST_ITS ---
Patient Info Name: Jane Babin Age: 34 years : 1990 Gender: Female Ht: 68 in Wt: 177 lbs BSA: 1.98 m2 HR: 74 bpm BP: 120 / 79 mmHg Exam Date: 05/23/2024 9:31 AM Exam Location: Echo Lab Patient Status: Outpatient Admit Date: 05/23/2024 Staff Ordering Physician: Sharon Lyon PA-C Attending Provider: Sharon Lyon PA-C Exercise Technologist: Ashley White [facility] Exercise Physician: Emerson Wynn DO Exam Type: CA stress test treadmill Study Info An exercise stress test was performed. Summary 1. 1. Negative Andreas exercise stress test for ischemic ST changes by ECG criteria. 2. 2. Reduced functional capacity, achieving 7 METs of workload. 3. 3. Appropriate HR response to exercise. 4. 4. Appropriate HR recovery at 1 minute post exercise. 5. 5. No imaging with stress testing. 6. 6. Patient informed of the above results. Protocol: Andreas Stress ECG Details Stage: REST Duration (min): 5 min : 16 sec Speed (mph): 0.0 Grade (%): 0 HR (bpm): 74 SBP (mmHg): 120 DBP (mmHg): 79 METS: --- Stage: REST Duration (min): 11 min : 32 sec Speed (mph): 0.0 Grade (%): 0 HR (bpm): 91 SBP (mmHg): 120 DBP (mmHg): 79 METS: --- Stage: STAGE 1 Duration (min): 1 min : 0 sec Speed (mph): 1.7 Grade (%): 10 HR (bpm): 123 SBP (mmHg): 120 DBP (mmHg): 79 METS: --- Stage: STAGE 1 Duration (min): 2 min : 0 sec Speed (mph): 1.7 Grade (%): 10 HR (bpm): 135 SBP (mmHg): 120 DBP (mmHg): 79 METS: --- Stage: STAGE 1 Duration (min): 3 min : 0 sec Speed (mph): 1.7 Grade (%): 10 HR (bpm): 138 SBP (mmHg): 152 DBP (mmHg): 81 METS: --- Stage: STAGE 2 Duration (min): 1 min : 0 sec Speed (mph): 2.5 Grade (%): 12 HR (bpm): 154 SBP (mmHg): 152 DBP (mmHg): 81 METS: --- Stage: STAGE 2 Duration (min): 2 min : 0 sec Speed (mph): 2.5 Grade (%): 12 HR (bpm): 167 SBP (mmHg): 148 DBP (mmHg): 79 METS: --- Stage: STAGE 2 Duration (min): 2 min : 31 sec Speed (mph): 2.5 Grade (%): 12 HR (bpm): 170 SBP (mmHg): 148 DBP (mmHg): 79 METS: --- Stage: RECOVERY Duration (min): 0 min : 28 sec Speed (mph): 0.0 Grade (%): 0 HR (bpm): 166 SBP (mmHg): 148 DBP (mmHg): 79 METS: --- Stage: RECOVERY Duration (min): 1 min : 28 sec Speed (mph): 0.0 Grade (%): 0 HR (bpm): 117 SBP (mmHg): 148 DBP (mmHg): 79 METS: --- Stage: RECOVERY Duration (min): 2 min : 28 sec Speed (mph): 0.0 Grade (%): 0 HR (bpm): 105 SBP (mmHg): 148 DBP (mmHg): 79 METS: --- Stage: RECOVERY Duration (min): 3 min : 28 sec Speed (mph): 0.0 Grade (%): 0 HR (bpm): 100 SBP (mmHg): 148 DBP (mmHg): 79 METS: --- Stage: RECOVERY Duration (min): 4 min : 28 sec Speed (mph): 0.0 Grade (%): 0 HR (bpm): 93 SBP (mmHg): 125 DBP (mmHg): 74 METS: --- Stage: RECOVER
== END 2024-05-23 09:21 | disposition home or self-care (01) ==
PROVIDERS: PCP Family Medicine; Visit Provider Physician Assistant
DX: R07.9 Chest pain, unspecified (principal); R42 Dizziness and giddiness; Z82.49 Family history of ischemic heart disease and other diseases of the circulatory system
CPT/HCPCS: 93017

== ENCOUNTER 2024-09-16 15:03 | Outpatient (CLI) | payer BC, SELFPAY ==
--- NOTE | ~2024-09-16 | XR_ITS ---
HISTORY: R22.32 - Localized swelling, mass and lump, left upper limb COMPARISON: None TECHNIQUE: 4 history views of the left wrist were performed. FINDINGS: No acute fracture is identified. The carpal arcs are intact. Mild radiocarpal joint space narrowing with sclerosis of the distal radius is present. The remaining visualized joint spaces are otherwise preserved. Bone mineralization is unremarkable. Degenerative disease is identified at the first carpometacarpal joint space with joint space narrowin g and sclerosis. No radiopaque foreign body is identified. IMPRESSION: Degenerative disease, without acute fracture. Reviewed, dictated and finalized at location A. E GREASER
== END 2024-09-16 15:04 | disposition home or self-care (01) ==
LOC: ANHIMG 15:04
PROVIDERS: PCP Family Medicine; Visit Provider Physician Assistant Surgical
DX: M19.032 Primary osteoarthritis, left wrist (principal)
CPT/HCPCS: 73110

== ENCOUNTER 2024-09-19 13:48 | Outpatient (CLI) | payer BC, SELFPAY ==
--- NOTE | ~2024-09-19 | US_ITS ---
EXAMINATION: US soft tissue UE LT DATE: 09/19/2024 14:04 INDICATION: Localized swelling, mass or lump at the left upper limb TECHNIQUE: Multiple grayscale and Doppler ultrasound images of the region of concern at the dorsum of the left hand were obtained. COMPARISON: None FINDINGS/IMPRESSION: 10 x 3 x 6 mm anechoic ganglion cyst at the dorsum of the left hand overlying the proximal pole of th e capitate. Reviewed, dictated and finalized at location B. SWITCHMAN
== END 2024-09-19 13:49 | disposition home or self-care (01) ==
PROVIDERS: PCP Family Medicine; Visit Provider Physician Assistant Surgical
DX: M67.442 Ganglion, left hand (principal)
CPT/HCPCS: 76882

== ENCOUNTER 2024-10-27 08:16 | Outpatient (CLI) | payer BC, SELFPAY ==
[2024-10-27 08:39] LABS: Cholesterol 184 mg/dL (0-200); HDL Direct 45 mg/dL; Triglycerides 67 mg/dL (<150)
[2024-10-27 08:50] LABS: LDL Cholesterol Direct 107 mg/dL
--- OUTSIDE RECORDS SUMMARY | 2024-11-03 15:20 | XMS_ITS | Clinical Summary ---
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 Active clotrimazole (LOTRIMIN) 1 % Cream Apply to affected area daily at bedtime. Active Active Problems Problem Noted Date Diagnosed Date SAB (spontaneous ) Social History Tobacco Use Types Packs/Day Years Used Date Smoking Tobacco: Never Smokeless Tobacco: Never Alcohol Use Standard Drinks/Week Comments Not Currently 0 (1 standard drink = 0.6 oz pur e alcohol) Feeling Safe Answer Date Recorded Within the last year, have y ou been afraid of your partner or ex-partner? Patient declined 07/22/2020 Within the last year, have y ou been humiliated or emotionally abused in other ways by your partner or ex-partner? Patient declined 07/22/2020 Within the last year, have y ou been kicked, hit, slapped, or otherwise physically hurt by your partner or ex-partner? Patient declined 07/22/2020 Within the last year, have y ou been raped or forced to have any kind of sexual activity by your partner or ex-partner? Patient declined 07/22/2020 Social Connections Answer Date Recorded In a typical week, how many times do you talk on the phone with family, friends, or neighbors? Patient declined 07/22/2020 How often do you get togethe r with friends or relatives? Patient declined 07/22/2020 How often do you attend jehovah's witness or mosque serv ices? Patient declined 07/22/2020 Do you belong to any clubs o r organizations such as jehovah's witness groups, unions, fraternal or athletic groups, or school groups? Patient declined 07/22/2020 How often do you attend meet ings of the clubs or organizations you belong to? Patient declined 07/22/2020 Are you , , di vorced, , never , or living with a partner? Patient declined 07/22/2020 Financial Resource Strain Answer Date R ecorded How hard is it for you to pa y for the very basics like food, housing, medical care, and heating? Not hard at all 07/22/2020 Food Insecurity Answer Date Recorded Within the past 12 months, y ou worried that your food would run out before you got the money to buy more. Patient declined Within the past 12 months, t he food you bought just didn't last and you didn't have money to get more. Patient declined Transportation Needs Answer Date Record ed In the past 12 months, has l ack of transportation kept you from medical appointments or from getting medications? Patient declined 07/22/2020 In the past 12 months, has l ack of transportation kept you from meetings, work, or from getting things needed for daily living? Patient declined 07/22/2020 Sex and Gender Information Value Date Recorded Sex Assigned at Not on file Gender Identity Not on file Sexual Orientation Not on file Last Filed Vital Signs Vital Sign Reading Time Taken Comments Blood Pressure 126/75 07/22/2020 12:29 PM CDT Pulse 89 07/22/2020 12:29 PM CDT Temperature 36.6 ??C (97.8 ??F) 07/22/2020 12:29 PM C DT Respiratory Rate 16 07/22/2020 12:29 PM CDT Oxygen Saturation - - Inhaled Oxygen Concentration - - Weight 63.5 kg (140 lb) 07/22/2020 12:29 PM CDT Height 154.9 cm (5' 1 ) 07/22/2020 12:29 PM CDT Body Mass Index 26.45 07/22/2020 12:29 PM CDT Plan of Treatment Health Maintenance Due Date Last Done Comments DTAP/TDAP/TD VACCINES (1 - Tdap) 02/12/2008 HEPATITIS B VACCINES (1 of 3 - 19+ 3-dose series) 02/12/2008 CERVICAL CANCER SCREENING 2019 INFLUENZA VACCINE (#1) 2024 HPV VACCINES Aged Out No longer eligi ble based on patient's age to complete this topic PNEUMOCOCCAL VACCINE 0-64 YEARS Aged Out No longer eligible based on patient's age to complete this topic Advance Directives For more information, please contact: [phone] * Full Code (Latest Code Status on File) Date Activated Date Inactivated Comments 07/22/2020 12:23 PM 07/22/2020 5:33 PM
--- OUTSIDE RECORDS SUMMARY | 2024-11-03 15:20 | XMS_ITS | Encounter Summary ---
Author Organization [facility] Address 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 Phone Unavailable Primary Care Provider Unavailabl e Reason for Visit * Auth/Cert Specialty Diagnoses / Procedures Referred By Contac t Referred To Contact Obstetrics Diagnoses Bleeding [facility] Ob Triage [address] [place] [address] Referral ID Status Reason Start Date Expiration Date Visits Re quested Visits Authorized [id number] 1 1 Encounter Details Date Type Department Care Team (Latest Contact Info) Description 07/22/2020 12:17 PM CDT - 07/22/2020 3:26 PM CDT Hospital Encounter [facility] OB Triage [address] [place] [address] [place] [address] [place] [address] SAB (spontaneous ) Discharge Disposition: Home or Self Care Social History Tobacco Use Types Packs/Day Years [...] declined 07/22/2020 How often do you attend hoahaoism or lutheran serv ices? Patient declined 07/22/2020 Do you belong to any clubs o r organizations such as hoahaoism groups, unions, fraternal or athletic groups, or [...] needed for daily living? Patient declined 07/22/2020 Comments Yes Sex and Gender Information Value Date Recorded Sex Assigned at Not on file Gender Identity Not on file Sexual Orientation Not on file documented as of this encounter Last Filed Vital Signs Vital Sign Reading [...] Mass Index 26.45 07/22/2020 12:29 PM CDT documented in this encounter Discharge Instructions * Discharge Instructions* Elyssa Rios RN - 07/22/2020 2:53 PM CDT Return to ED if saturating more then one pad/hr, dizzy, or lightheaded. * Attachments The following attachments cannot be sent through Care Everywhere. * Miscarriage (Montserratian) documented in this encounter Medications at Time of Discharge Medication Sig Dispensed Refills Start Date End Date amoxicillin (AMOXIL) 875 mg tablet Take 875 mg by mouth every 12 hours. clotrimazole (LOTRIMIN) 1 % Cream Apply to affected area daily at bedtime. documented as of this encounter Progress Notes * Elyssa Rios RN - 07/22/2020 3:32 PM CDT Discharge instructions provided. Patient verbalized understanding. 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 @ 5w1d, who presents from work with bleeding and cramping today. She had a positive urine hcg 4 days ago. ROS: Comprehensive ROS done. Denies heachache, visual disturbances or epigastric pain. All others neg. 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 OB History: OB History Para Term AB Living 1 SAB TAB Ectopic Multiple Live Births # Outcome Date GA Lbr Kush/2nd Weight Sex Delivery Anes PTL Lv 1 Current PMHx: No past medical history on file. PSHx: No past surgical history on file. PSocHX: Social History Tobacco Use ??? Smoking status: Never Smoker ??? Smokeless tobacco: Never Used Substance Use Topics ??? Alcohol use: Not Currently ??? Drug use: Never Medications: No current facility-administered medications on file prior to encounter. Current Outpatient Medications on File Prior to Encounter Medication Sig Dispense Refill ??? amoxicillin (AMOXIL) 875 mg tablet Take 875 mg by mouth every 12 hours. ??? clotrimazole (LOTRIMIN) 1 % Cream Apply to affected area daily at bedtime. Allergies Allergen Reactions ??? Acetaminophen-Codeine Hallucination ??? Diclofenac Angioedema Physical Exam: Vitals: 07/22/20 1229 BP: 126/75 Pulse: 89 Resp: 16 Temp: 97.8 ??F (36.6 ??C) TempSrc: Temporal Weight: 63.5 kg (140 lb) Height: 5' 1 (1.549 m) General: Well-developed, well-nourished female in NAD HEENT: Normocephalic, atraumatic. Mucus membranes Heart: acyanotic, RRR Lungs: unlabored, CTAB Abdomen: soft, gravid, NT Extremities: No clubbing, cyanosis, or edema. No calf tenderness. SVE: LTC with a nongravid uterus- slightly more tender in right adenexa. SSE: Menstrual like blood noted in vault. Labs: Blood type unknown Results for orders placed or performed during the hospital encounter of 07/22/20 (from the past 24 hour(s)) HCG QUANTITATIVE, BLOOD Result Value Ref Range HCG QUANT, BLOOD <5.0 <5.0 mIU/mL Radiology No results found for this or any previous visit. Assessment/Plan 30 y.o. s/p early SAB vs menses 1. Dr. Elise updated 2. Rhogam eval and may d/c. To f.u. in office. 3. Px informed and agrees with plan. Sherice Peters CNM documented in this encounter Plan of Treatment Not on file documented as of this encounter Procedures Procedure Name Priority Date/Time Associated Diagnosis Comments RH IMMUNE GLOBULIN EVALUATION Routine 07/22/2020 3:23 PM CDT HCG QUANTITATIVE, BLOOD Stat 07/22/2020 12:38 PM CDT documented in this encounter Results * RH IMMUNE GLOBULIN EVALUATION (07/22/2020 3:23 PM CDT) ABO GROUP A 07/22/2020 3:23 PM CDT [facility] RH (D) TYPE Positive 07/22/2020 3:23 PM CDT [facility] CORD BLOOD TYPE Cord Blood Grp and Rh Unknown 07/22/2020 3:23 PM CDT [facility] RHIG ELIGIBILITY No RHIg, pt Rh Pos 07/22/2020 3:23 PM CDT [facility] Blood Venipuncture / Unknown 07/22/2020 3:23 PM CDT 07/22/2020 3:27 PM CDT Sherice Peters [facility] BLOOD BANK ORDERABLE S [facility] CLIA# [id number] [address] [place] [address] * HCG QUANTITATIVE, BLOOD (07/22/2020 12:38 PM CDT) Pathologist [facility] HCG QUANT, BLOOD <5.0 <5.0 mIU/mL 07/22/2020 2:02 PM CDT [facility] Blood Venipuncture / Unknown 07/22/2020 12:38 PM CDT 07/22/2020 12:54 PM CDT Narrative [facility] - 07/22/2020 2:02 PM CDT Result of 5 - 25 mIU/mL is indeterminant for , repeat of test recommended in 48 hours. Reference Range: Gestational Age ? HCG Concentration 3 ??Weeks ?5.8 - 71.2 ? mIU/mL 4 ??Weeks ?9.5 - 750 ?mIU/mL 5 ??Weeks ?217 - 8657 ? mIU/mL 6 ??Weeks ?158 - 31,795 ?? mIU/mL 7 ??Weeks ? 3697 - 163,563 ??mIU/mL 8 ??Weeks ? 32,065 - 149,571 ??mIU/mL 9 ??Weeks ? 63,803 - 151,410 ??mIU/mL 10 Weeks ? 46,509 - 186,977 ??mIU/mL 12 Weeks ? 27,832 - 210,612 ??mIU/mL 14 Weeks ? 13,950 - 62,530 ?? mIU/mL 15 Weeks ? 12,039 - 70,971 ?? mIU/mL 16 Weeks ? 9040 - 56,451 ?? mIU/mL 17 Weeks ? 8175 - 37,868 ?? mIU/mL 18 Weeks ? 8099 - 58,176 ?? mIU/mL Heterophile antibodies and other interfering substances in the serum of some patients may cause a false-positive result in this assay. Before making a diagnosis of malignancy or ectopic , the result of this test should be confirmed with a urine HCG test and correlated with other clinical evidence. Sherice Peters [facility] CHEMISTRY ORDERABLES Performing Organization Address [facility] de Phone Number [facility]# [id number] [address] [facility] [place] [address] documented in this encounter Visit Diagnoses Diagnosis SAB (spontaneous ) Unspecified spontaneous without mention of complication documented in this encounter
== END 2024-10-27 08:17 | disposition home or self-care (01) ==
LOC: ANHLAB 08:17
PROVIDERS: PCP Family Medicine; Visit Provider Internal Medicine Cardiovascular Disease
DX: Z82.49 Family history of ischemic heart disease and other diseases of the circulatory system (principal)
CPT/HCPCS: 36415; 80061

== ENCOUNTER 2025-03-03 08:48 | Outpatient (CLI) | payer BC, SELFPAY ==
[2025-03-03 09:05] LABS: Basophils Percent Auto 0.7 % (0.2-1.2); Eosinophils Absolute Auto 0.1 K/mm3 (0-0.3); Eosinophils Percent Auto 3.2 % (0-4.4); Hematocrit 42.8 % (37.0-47.0); Hemoglobin 13.5 g/dL (12.0-15.0); Lymphocytes Absolute Auto 1.73 K/mm3 (0.9-3.2); Lymphocytes Percent Auto 39.1 % (18.3-44.2); Mean Corpuscular HGB Conc 31.5 g/dl (32-36); Mean Corpuscular Hemoglobin 28.7 pg (26-34); Mean Corpuscular Volume 90.9 fl (80-100); Mean Platelet Volume 11.3 fl (7.4-10.4); Monocytes Absolute Auto 0.3 K/mm3 (0.1-0.6); Neutrophils Absolute Auto 2.2 K/mm3 (1.3-6.7); Platelet Count Result 203 k/mm3 (150-375); Red Blood Count 4.71 M/mm3 (4.2-5.4); White Blood Count 4.4 K/mm3 (4.5-10.0)
[2025-03-03 09:13] LABS: Alanine Aminotransferase 20 U/L (6-35); Albumin Level 4.3 g/dL (3.5-5.1); Alkaline Phosphatase 77 U/L (38-126); Anion Gap 6 mmol/L (4-12); Aspartate Amino Transferase 21 U/L (14-36); Bilirubin,Total 0.5 mg/dL (0.2-1.3); Blood Urea Nitrogen 17 mg/dL (7-17); Calcium 8.9 mg/dL (8.4-10.2); Carbon Dioxide 29 mmol/L (22-30); Chloride 104 mmol/L (98-107); Estimated Glomerular Filt Rate > 60; Glucose 70 mg/dL (65-110); Potassium 4.3 mmol/L (3.4-5.0); Sodium 139 mmol/L (137-145)
--- OUTSIDE RECORDS SUMMARY | 2025-03-03 09:16 | XMS_ITS | Clinical Summary ---
Author Organization [facility] Address [address] [place] [phone] Phone Care Team Providers Care Consumer Affairs Specialist Name Role Phone Unavailable Primary Care Provider Unavailabl e Allergies Active Allergy Reactions Criticality Noted Date Comments Acetaminophen-Codeine Hallucination High 07/22/2020 Diclofenac Angioedema High 07/22/2020 Medications amoxicillin (AMOXIL) 875 mg tablet Take 875 [...] declined 07/22/2020 How often do you attend jew or caodaism serv ices? Patient declined 07/22/2020 Do you belong to any clubs o r organizations such as jew groups, unions, fraternal or athletic groups, or [...] for daily living? Patient declined 07/22/2020 Comments No Sex and Gender Information Value Date Recorded Sex Assigned at Not on file Legal Sex Female 12:11 PM CDT Gender Identity Not on file Sexual Orientation Not on file Last Filed Vital Signs Vital Sign Reading Time Taken Comments Blood Pressure 126/75 07/22/2020 12:29 PM CDT Pulse 89 07/22/2020 12:29 PM CDT Temperature 36.6 C (97.8 F) 07/22/2020 12:29 PM CDT Respiratory Rate 16 07/22/2020 12:29 PM CDT [...] of 3 - 19+ 3-dose series) 02/12/2008 HPV/Cotest (21-29) 2010 CERVICAL CANCER SCREENING 2019 HPV/Cotest (30-65) 2019 PAP SMEAR 2019 INFLUENZA VACCINE (#1) 2024 HPV VACCINES Aged Out No longer eligi ble based on patient's age to complete this topic Insurance [facility] [employer] PPO Advance Directives For more information, please contact: [phone] * Full Code (Latest Code Status on File) Date Activated Date Inactivated Comments 07/22/2020 12:23 PM 07/22/2020 5:33 PM
--- OUTSIDE RECORDS SUMMARY | 2025-03-03 09:16 | XMS_ITS | Clinical Summary ---
Author Organization [facility] Virtual Care Address [address] [place] [phone] Phone Care Team Providers Care Groundskeeping Maintenance Worker Name Role Phone Unknown, Notinfile Primary Care Provider Unavail able Allergies Active Allergy Reactions Criticality Noted Date Comments Acetaminophen-Codeine Hallucinations High 07/22/2020 Diclofenac Angioedema,Swelling High 07/22/2020 Medications No known medications Active Problems No known active problems Surgical History Surgery Date Site/Laterality Comments WISDOM TOOTH EXTRACTION Family History Medical History Relation Name Comments Heart attack Father Arthritis Mother Fibromyalgia Mother Hypertension Mother Neuropathy Mother No Known Problems Sister No Known Problems Son 1 No Known Problems Son 2 Relation Name Status Comments Father Mother Alive Sister Alive Son 1 Alive Son 2 Alive Social History Tobacco Use Types Packs/Day Years Used Date Smoking Tobacco: Never Smokeless Tobacco: Never Tobacco Cessation:Counseling Given: No AUDIT-C Answer Date Recorded Q1: How often do you have a drink containing alcohol? Never 09/02/2024 Q2: How many drinks containi ng alcohol do you have on a typical day when you are drinking? Patient does not drink Q3: How often do you have si x or more drinks on one occasion? Never 09/02/2024 Comments Unknown Sex and Gender Information Value Date Recorded Sex Assigned at Not on file Legal Sex Female 9:34 AM CDT Gender Identity Female 04/29/2024 9:38 AM CDT Sexual Orientation Straight 04/29/2024 9: 38 AM CDT Obstetrics History Last Filed Vital Signs Vital Sign Reading Time Taken Comments Blood Pressure 106/72 10/20/2024 11:49 AM ELECTRONICS DETAIL DRAFTSPERSON Pulse 80 10/20/2024 11:49 AM ELECTRONICS DETAIL DRAFTSPERSON Temperature 36.6 C (97.9 F) 08/02/2024 2:01 PM CDT Respiratory Rate 20 09/02/2024 2:08 PM CDT Oxygen Saturation 98% 08/02/2024 2:01 PM CDT Inhaled Oxygen Concentration - - Weight 78 kg (172 lb) 10/20/2024 11:49 AM ELECTRONICS DETAIL DRAFTSPERSON Height 174 cm (5' 8.5 ) 10/20/2024 11:49 AM ELECTRONICS DETAIL DRAFTSPERSON Body Mass Index 25.77 10/20/2024 11:49 AM ELECTRONICS DETAIL DRAFTSPERSON Plan of Treatment Health Maintenance Due Date Last Done Comments Cervical Cancer Screening 1989 Depression Screening 1989 Hepatitis C Screening 1989 Varicella Vaccines (1 of 2 - 13+ 2-dose series) 2002 Hepatitis B Screening 2007 Regular Well Visit/Exam 18-64 2007 Covid-19 Vaccine (4 - 2023-2 5 season) 2024 11/29/2021, 03/02/2021, 02/03/2021 Influenza Vaccine (Season Ended) 2025 10/15/2023, 11/29/2021 DTaP/Tdap/Td Vaccine (3 - Td or Tdap) 10/15/2033 10/15/2023, 11/30/2021 HPV Vaccines Aged Out No longer eligi ble based on patient's age to complete this topic Pneumococcal vaccine <65 Aged Out No longer eligible based on patient's age to complete this topic [place] [address] ANTH ACCESS ANTH ACCESS Care Teams Groundskeeping Maintenance Worker Relationship Specialty Start Date End Date Unknown, Notinfile PCP - General 04/29/24
--- OUTSIDE RECORDS SUMMARY | 2025-03-03 09:16 | XMS_ITS | Referral Summary ---
Author Organization [facility] Virtual Care Address [address] [place] [phone] Phone Care Team Providers Care Upholstery Bundler Name Role Phone Unknown, Notinfile Primary Care Provider Unavail able Allergies Active Allergy Reactions Criticality Noted Date Comments Acetaminophen-Codeine Hallucinations High 07/22/2020 Diclofenac Angioedema,Swelling High 07/22/2020 Medications No known medications Active Problems No known active problems Social History Tobacco Use Types Packs/Day Years [...] Orientation Straight 04/29/2024 9: 38 AM CDT Last Filed Vital Signs Vital Sign Reading Time Taken Comments Blood Pressure 106/72 10/20/2024 11:49 AM PRODUCT MARKETING PROGRAMS MANAGER Pulse 80 10/20/2024 11:49 AM PRODUCT MARKETING PROGRAMS MANAGER Temperature 36.6 C (97.9 F) 08/02/2024 2:01 PM CDT Respiratory Rate 20 09/02/2024 2:08 PM CDT Oxygen Saturation 98% 08/02/2024 2:01 PM CDT Inhaled Oxygen Concentration - - Weight 78 kg (172 lb) 10/20/2024 11:49 AM PRODUCT MARKETING PROGRAMS MANAGER Height 174 cm (5' 8.5 ) 10/20/2024 11:49 AM PRODUCT MARKETING PROGRAMS MANAGER Body Mass Index 25.77 10/20/2024 11:49 AM PRODUCT MARKETING PROGRAMS MANAGER Plan of Treatment Not on file Insurance ANTHEM ACCESS ANTHEM ACCESS Care Teams Upholstery Bundler Relationship Specialty Start Date End Date Unknown, Notinfile PCP - General 04/29/24
== END 2025-03-03 08:49 | disposition home or self-care (01) ==
LOC: ANHLAB 08:49
PROVIDERS: PCP Family Medicine; Visit Provider Physician Assistant
DX: Z00.00 Encounter for general adult medical examination without abnormal findings (principal); Z82.49 Family history of ischemic heart disease and other diseases of the circulatory system
CPT/HCPCS: 36415; 80053; 85025

== ENCOUNTER 2025-05-18 16:33 | Outpatient (CLI) | payer BC, SELFPAY ==
--- NOTE | ~2025-05-18 | CT_ITS ---
EXAMINATION: CT brain wo con DATE: 05/18/2025 17:06 INDICATION: Headache TECHNIQUE: Computed tomography (CT) of the head was performed without intravenous contrast. Sagittal and coronal reconstructions were performed. The mA was adjusted according to patient size. Iterative reconstruction technique was employed. The dose-length product was 605.33 mGy-cm. COMPARISON: Brain MR dated 09/19/2022 FINDINGS: No calvarial fracture. No acute intracranial hemorrhage, acute infarction or abnormal extra axial flu id collection. Ventricles are normal and symmetric. No mass/mass effect. There is a partially empty sella with interval decrease in thickness of the pituitary which measures 3 mm craniocaudally and ap pears compressed in the caudal third of the sella. Mild mucosal thickening in the right maxillary sin us. The orbits and mastoid air cells are normal. IMPRESSION: 1. No fracture or acute intracranial process. 2. Partially empty sella with decrease in craniocaudal thickness of the pituitary which can be occur in the setting of idiopathic intracranial hypertension. Reviewed, dictated and finalized at location A. IMPRESSION: 1. No fracture or acute intracranial process. 2. Partially empty sella with decrease in craniocaudal thickness of the pituita ry which can be occur in the setting of idiopathic intracranial hypertension.
--- OUTSIDE RECORDS SUMMARY | 2025-05-18 16:36 | XMS_ITS | Referral Summary ---
Author Organization [facility] Virtual Care Address [address] [place] [phone] Phone Care Team Providers Care Fiber Optics Engineer Name Role Phone Unknown, Notinfile Primary Care [...] Comments Blood Pressure 106/72 10/20/2024 11:49 AM SOFTWARE RELIABILITY ENGINEER Pulse 80 10/20/2024 11:49 AM SOFTWARE RELIABILITY ENGINEER Temperature 36.6 C (97.9 F) 08/02/2024 2:01 PM CDT Respiratory Rate 20 09/02/2024 2:08 PM CDT Oxygen Saturation 98% 08/02/2024 2:01 PM CDT Inhaled Oxygen Concentration - - Weight 78 kg (172 lb) 10/20/2024 11:49 AM SOFTWARE RELIABILITY ENGINEER Height 174 cm (5' 8.5) 10/20/2024 11:49 AM SOFTWARE RELIABILITY ENGINEER Body Mass Index 25.77 10/20/2024 11:49 AM SOFTWARE RELIABILITY ENGINEER Plan of Treatment Not on file Insurance ANTHEM ACCESS ANTHEM ACCESS Care Teams Fiber Optics Engineer Relationship Specialty Start Date End Date Unknown, Notinfile PCP - General 04/29/24
--- OUTSIDE RECORDS SUMMARY | 2025-05-18 16:36 | XMS_ITS | Clinical Summary ---
Author Organization [facility] Address [address] [place] [phone] Phone Care Team Providers Care Manager Trainee Name Role Phone Unavailable Primary Care Provider [...] declined 07/22/2020 How often do you attend confucianist or samaritan serv ices? Patient declined 07/22/2020 Do you belong to any clubs o r organizations such as confucianist groups, unions, fraternal or athletic groups, or [...] 12:29 PM CDT Height 154.9 cm (5' 1) 07/22/2020 12:29 PM CDT Body Mass Index 26.45 07/22/2020 12:29 PM CDT Plan of Treatment Health Maintenance Due Date Last Done Comments DTAP/TDAP/TD VACCINES (1 - Tdap) 02/12/2008 HEPATITIS B VACCINES (1 of 3 - 19+ 3-dose series) 02/12/2008 HPV/Cotest (21-29) 2010 CERVICAL CANCER SCREENING 2019 HPV/Cotest (30-65) 2019 PAP SMEAR 2019 INFLUENZA VACCINE (#1) 2025 HPV VACCINES Aged Out No longer eligi ble based on patient's age to complete this topic Insurance [facility] [place] [employer] PPO Advance Directives For more information, please contact: [phone] * Full Code (Latest Code Status on File) Date Activated Date Inactivated Comments 07/22/2020 12:23 PM 07/22/2020 5:33 PM
--- OUTSIDE RECORDS SUMMARY | 2025-05-18 16:36 | XMS_ITS | Clinical Summary ---
Author Organization [facility] Virtual Care Address [address] [place] [phone] Phone Care Team Providers Care Rn Diabetes Educator Name Role Phone Unknown, Notinfile Primary Care [...] Comments Blood Pressure 106/72 10/20/2024 11:49 AM PEDIATRIC DIETICIAN Pulse 80 10/20/2024 11:49 AM PEDIATRIC DIETICIAN Temperature 36.6 C (97.9 F) 08/02/2024 2:01 PM CDT Respiratory Rate 20 09/02/2024 2:08 PM CDT Oxygen Saturation 98% 08/02/2024 2:01 PM CDT Inhaled Oxygen Concentration - - Weight 78 kg (172 lb) 10/20/2024 11:49 AM PEDIATRIC DIETICIAN Height 174 cm (5' 8.5) 10/20/2024 11:49 AM PEDIATRIC DIETICIAN Body Mass Index 25.77 10/20/2024 11:49 AM PEDIATRIC DIETICIAN Plan of Treatment Health Maintenance Due Date [...] age to complete this topic [place] [address] ANTH ACCESS ANTH ACCESS Care Teams Rn Diabetes Educator Relationship Specialty Start Date End Date Unknown, Notinfile PCP - General 04/29/24
[2025-05-18 16:57] LABS: Hematocrit 41.5 % (37.0-47.0); Hemoglobin 13.6 g/dL (12.0-15.0); Immature Granulocyte Percent A 0.4 % (0-0.5); Lymphocytes Absolute Auto 2.28 K/mm3 (0.9-3.2); Mean Corpuscular HGB Conc 32.8 g/dl (32-36); Mean Corpuscular Hemoglobin 28.5 pg (26-34); Mean Corpuscular Volume 87.0 fl (80-100); Nucleated Red Blood Cells Absolute Auto 0.000 K/mm3 (0.0-0.012); Nucleated Red Blood Cells Perc 0.0 % (0.0-0.2); Platelet Count Result 225 k/mm3 (150-375); Red Blood Count 4.77 M/mm3 (4.2-5.4); White Blood Count 7.5 K/mm3 (4.5-10.0)
[2025-05-18 17:23] LABS: Alanine Aminotransferase 26 U/L (6-35); Albumin Level 4.3 g/dL (3.5-5.1); Alkaline Phosphatase 65 U/L (38-126); Anion Gap 8 mmol/L (4-12); Aspartate Amino Transferase 22 U/L (14-36); Bilirubin,Total 0.3 mg/dL (0.2-1.3); Blood Urea Nitrogen 19 mg/dL (7-17); Calcium 9.1 mg/dL (8.4-10.2); Carbon Dioxide 28 mmol/L (22-30); Chloride 102 mmol/L (98-107); Estimated Glomerular Filt Rate > 60; Glucose 100 mg/dL (65-110); Potassium 4.2 mmol/L (3.4-5.0); Sodium 138 mmol/L (137-145); Total Protein 7.3 g/dL (6.3-8.2)
== END 2025-05-18 16:34 | disposition home or self-care (01) ==
PROVIDERS: PCP Family Medicine
DX: R93.89 Abnormal findings on diagnostic imaging of other specified body structures (principal); E23.0 Hypopituitarism; R11.0 Nausea; R51.9 Headache, unspecified
CPT/HCPCS: 36415; 70450; 80053; 85025

== ENCOUNTER 2025-05-20 15:57 | Inpatient (IN) | payer BC, SELFPAY ==
[2025-05-20] VITALS (15 sets, daily range): BP systolic 112–130; BP diastolic 76–98; PULSE 66–141; RESP 9–21; TEMP 36.4–36.5; O2SAT 97–100
--- NOTE | ~2025-05-20 | MR_ITS ---
MR brain/brain stem wo con, MRA brain wo con, MR venography brain Ordering provider: Suzy Davis MD History: 35 years Female with . suspect Idiopathic intracranial hypertension . Comparison: September 19, 2022 Technique: MRI brain was performed without contrast. FINDINGS: BONES: Normal. CRANIOCERVICAL JUNCTION: normal. PITUITARY: Normal. MAJOR INTRACRANIAL VESSELS: Normal flow void. OPTIC NERVES AND CRANIAL NERVES VII AND VIII COMPLEXES: Grossly normal. BRAIN PARENCHYMA AND CSF SPACES: No visible white matter disease. The brainstem and cerebellum are n ormal. No acute or chronic intracranial hemorrhage. No extra axial fluid collections. Diffusion weigh pascual and ADC mapping images reveal no recent ischemia. No midline shift or mass effect. PARANASAL SINUSES: Normal. Right nasal septal deviation is seen. MASTOIDS: Normal SUPERFICIAL/SURROUNDING SOFT TISSUES: Normal. IMPRESSION: 1. Normal study. MR brain/brain stem wo con, MRA brain wo con, MR venography brain Ordering provider: Suzy Davis MD History: . suspect Idiopathic intracranial hypertension . Comparison: MRI brain performed the same day. Technique: MRA brain without contrast per protocol utilizing 3D time of flight and maximum intensity projection images. FINDINGS: INTERNAL CAROTIDS: Normal caliber and contour without evidence for significant stenosis. ANTERIOR CEREBRAL ARTERIES: Normal caliber and contour without evidence for significant stenosis. MIDDLE CEREBRAL ARTERIES: Normal caliber and contour without evidence for significant stenosis. VISUALIZED DISTAL VERTEBRAL ARTERIES: Normal caliber and contour bilaterally without evidence for sig nificant stenosis. BASILAR ARTERY: Normal caliber and contour without evidence for significant stenosis. POSTERIOR CEREBRAL ARTERIES: Normal caliber and contour without evidence for significant stenosis. POSTERIOR COMMUNICATING ARTERIES: The right is demonstrated. The left is not well seen due to size. ANEURYSM: None OTHER: Normal. IMPRESSION: Normal study. Knee pain MR brain/brain stem wo con, MRA brain wo con, MR venography brain Ordering provider: Suzy Davis MD History: . suspect Idiopathic intracranial hypertension . Comparison: MRI brain performed the same day. Technique: MRV brain without contrast per protocol utilizing 3D time of flight and maximum intensity projection images. Source images and 3-dimensional reconstructed MIP images were obtained and reviewe d. FINDINGS: Sigmoid, transverse sinuses: An area of narrowing is seen in the midportion of the right venous trans verse sinus. Otherwise, Normal flow without filling defects. Visualized distal jugular veins: Normal flow without filling defects. The inferior sagittal sinus is not demonstrated with some irregularity seen in the area of the straig ht sinus. The superior sagittal sinus and tributaries: Normal flow without filling defects. IMPRESSION: Focal stenosis in the right transverse venous sinus is noted in the midportion. Nonvisualization of the inferior sagittal sinus and irregularity in the area of the straight sinus. T hrombosis cannot be excluded and further evaluation advised. Reviewed, dictated and finalized at location A. IMPRESSION: 1. Normal study. MR brain/brain stem wo con, MRA brain wo con, MR venography brain Ordering provider: Suzy Davis MD History: . suspect Idiopathic intracranial hypertension . Comparison: MRI brain performed the same day. Technique: MRA brain without contrast per protocol utilizing 3D time of flight and maximum intensity projection images. FINDINGS: INTERNAL CAROTIDS: Normal caliber and contour without evidence for significant stenosis. ANTERIOR CEREBRAL ARTERIES: Normal caliber and contour without evidence for sig nificant stenosis. MIDDLE CEREBRAL ARTERIES: Normal caliber and contour without evidence for signi ficant stenosis. VISUALIZED DISTAL VERTEBRAL ARTERIES: Normal caliber and contour bilaterally wi thout evidence for significant stenosis. BASILAR ARTERY: Normal caliber and contour without evidence for significant st enosis. POSTERIOR CEREBRAL ARTERIES: Normal caliber and contour without evidence for si gnificant stenosis. POSTERIOR COMMUNICATING ARTERIES: The right is demonstrated. The left is not we ll seen due to size. ANEURYSM: None OTHER: Normal. IMPRESSION: Normal study. Knee pain MR brain/brain stem wo con, MRA brain wo con, MR venography brain Ordering provider: Suzy Davis MD History: . suspect Idiopathic intracranial hypertension . Comparison: MRI brain performed the same day. Technique: MRV brain without contrast per protocol utilizing 3D time of flight and maximum intensity projection images. Source images and 3-dimensional recons tructed MIP images were obtained and reviewed. FINDINGS: Sigmoid, transverse sinuses: An area of narrowing is seen in the midportion of the right venous transverse sinus. Otherwise, Normal flow without filling defec ts. Visualized distal jugular veins: Normal flow without filling defects. The inferior sagittal sinus is not demonstrated with some irregularity seen in the area of the straight sinus. The superior sagittal sinus and tributaries: Normal flow without filling defect s. IMPRESSION: Focal stenosis in the right transverse venous sinus is noted in the midportion. Nonvisualization of the inferior sagittal sinus and irregularity in the area of the straight sinus. Thrombosis cannot be excluded and further evaluation advis ed. IMPRESSION: 1. Normal study. MR brain/brain stem wo con, MRA brain wo con, MR venography brain Ordering provider: Suzy Davis MD History: . suspect Idiopathic intracranial hypertension . Comparison: MRI brain performed the same day. Technique: MRA brain without contrast per protocol utilizing 3D time of flight and maximum intensity projection images. FINDINGS: INTERNAL CAROTIDS: Normal caliber and contour without evidence for significant stenosis. ANTERIOR CEREBRAL ARTERIES: Normal caliber and contour without evidence for sig nificant stenosis. MIDDLE CEREBRAL ARTERIES: Normal caliber and contour without evidence for signi ficant stenosis. VISUALIZED DISTAL VERTEBRAL ARTERIES: Normal caliber and contour bilaterally wi thout evidence for significant stenosis. BASILAR ARTERY: Normal caliber and contour without evidence for significant st enosis. POSTERIOR CEREBRAL ARTERIES: Normal caliber and contour without evidence for si gnificant stenosis. POSTERIOR COMMUNICATING ARTERIES: The right is demonstrated. The left is not we ll seen due to size. ANEURYSM: None OTHER: Normal. IMPRESSION: Normal study. Knee pain MR brain/brain stem wo con, MRA brain wo con, MR venography brain Ordering provider: Suzy Davis MD History: . suspect Idiopathic intracranial hypertension . Comparison: MRI brain performed the same day. Technique: MRV brain without contrast per protocol utilizing 3D time of flight and maximum intensity projection images. Source images and 3-dimensional recons tructed MIP images were obtained and reviewed. FINDINGS: Sigmoid, transverse sinuses: An area of narrowing is seen in the midportion of the right venous transverse sinus. Otherwise, Normal flow without filling defec ts. Visualized distal jugular veins: Normal flow without filling defects. The inferior sagittal sinus is not demonstrated with some irregularity seen in the area of the straight sinus. The superior sagittal sinus and tributaries: Normal flow without filling defect s. IMPRESSION: Focal stenosis in the right transverse venous sinus is noted in the midportion. Nonvisualization of the inferior sagittal sinus and irregularity in the area of the straight sinus. Thrombosis cannot be excluded and further evaluation advis ed. IMPRESSION: 1. Normal study. MR brain/brain stem wo con, MRA brain wo con, MR venography brain Ordering provider: Suzy Davis MD History: . suspect Idiopathic intracranial hypertension . Comparison: MRI brain performed the same day. Technique: MRA brain without contrast per protocol utilizing 3D time of flight and maximum intensity projection images. FINDINGS: INTERNAL CAROTIDS: Normal caliber and contour without evidence for significant stenosis. ANTERIOR CEREBRAL ARTERIES: Normal caliber and contour without evidence for sig nificant stenosis. MIDDLE CEREBRAL ARTERIES: Normal caliber and contour without evidence for signi ficant stenosis. VISUALIZED DISTAL VERTEBRAL ARTERIES: Normal caliber and contour bilaterally wi thout evidence for significant stenosis. BASILAR ARTERY: Normal caliber and contour without evidence for significant st enosis. POSTERIOR CEREBRAL ARTERIES: Normal caliber and contour without evidence for si gnificant stenosis. POSTERIOR COMMUNICATING ARTERIES: The right is demonstrated. The left is not we ll seen due to size. ANEURYSM: None OTHER: Normal. IMPRESSION: Normal study. Knee pain MR brain/brain stem wo con, MRA brain wo con, MR venography brain Ordering provider: Suzy Davis MD History: . suspect Idiopathic intracranial hypertension . Comparison: MRI brain performed the same day. Technique: MRV brain without contrast per protocol utilizing 3D time of flight and maximum intensity projection images. Source images and 3-dimensional recons tructed MIP images were obtained and reviewed. FINDINGS: Sigmoid, transverse sinuses: An area of narrowing is seen in the midportion of the right venous transverse sinus. Otherwise, Normal flow without filling defec ts. Visualized distal jugular veins: Normal flow without filling defects. The inferior sagittal sinus is not demonstrated with some irregularity seen in the area of the straight sinus. The superior sagittal sinus and tributaries: Normal flow without filling defect s.
--- OUTSIDE RECORDS SUMMARY | 2025-05-20 16:00 | XMS_ITS | Clinical Summary ---
Author Organization [facility] Address [address] [place] [phone] Phone Care Team Providers Care Development Planner Name Role Phone Unavailable Primary Care Provider [...] drink = 0.6 oz pur e alcohol) Comments No Sex and Gender Information Value [...] patient's age to complete this topic Insurance [facility] [employer]/HIGH MOBILITY PPO Advance Directives For more information, please contact: [phone] * Full Code (Latest Code Status on File) Date Activated Date Inactivated Comments 07/22/2020 12:23 PM 07/22/2020 5:33 PM
--- OUTSIDE RECORDS SUMMARY | 2025-05-20 16:00 | XMS_ITS | Clinical Summary ---
Author Organization [facility] Virtual Care Address [address] [place] [phone] Phone Care Team Providers Care Tariff Counsel Name Role Phone Unknown, Notinfile Primary Care [...] Comments Blood Pressure 106/72 10/20/2024 11:49 AM RUBY ON RAILS WEB DEVELOPER Pulse 80 10/20/2024 11:49 AM RUBY ON RAILS WEB DEVELOPER Temperature 36.6 C (97.9 F) 08/02/2024 2:01 PM CDT Respiratory Rate 20 09/02/2024 2:08 PM CDT Oxygen Saturation 98% 08/02/2024 2:01 PM CDT Inhaled Oxygen Concentration - - Weight 78 kg (172 lb) 10/20/2024 11:49 AM RUBY ON RAILS WEB DEVELOPER Height 174 cm (5' 8.5) 10/20/2024 11:49 AM RUBY ON RAILS WEB DEVELOPER Body Mass Index 25.77 10/20/2024 11:49 AM RUBY ON RAILS WEB DEVELOPER Plan of Treatment Health Maintenance Due Date Last Done Comments Cervical Cancer Screening 1989 Depression Screening 1989 Hepatitis C Screening 1989 Varicella Vaccines (1 of 2 - 13+ 2-dose series) 2002 Hepatitis B Screening 2007 Regular Well Visit/Exam 18-64 2007 Covid-19 Vaccine (4 - 2023-2 5 season) 2024 11/29/2021, 03/02/2021, 02/03/2021 Influenza Vaccine (#1) 2025 , 11/29/2021 DTaP/Tdap/Td Vaccine (3 - Td or Tdap) 10/15/2033 10/15/2023, 11/30/2021 HPV Vaccines Aged Out No longer eligi ble based on patient's age to complete this topic Pneumococcal vaccine <65 Aged Out No longer eligible based on patient's age to complete this [place] [address] ANTH ACCESS ANTH ACCESS Care Teams Tariff Counsel Relationship Specialty Start Date End Date Unknown, Notinfile PCP - General 04/29/24
--- OUTSIDE RECORDS SUMMARY | 2025-05-20 16:00 | XMS_ITS | Referral Summary ---
Author Organization [facility] Virtual Care Address [address] [place] [phone] Phone Care Team Providers Care Protozoology Teacher Name Role Phone Unknown, Notinfile Primary Care [...] Comments Blood Pressure 106/72 10/20/2024 11:49 AM SECONDARY SCHOOL REGISTRAR Pulse 80 10/20/2024 11:49 AM SECONDARY SCHOOL REGISTRAR Temperature 36.6 C (97.9 F) 08/02/2024 2:01 PM CDT Respiratory Rate 20 09/02/2024 2:08 PM CDT Oxygen Saturation 98% 08/02/2024 2:01 PM CDT Inhaled Oxygen Concentration - - Weight 78 kg (172 lb) 10/20/2024 11:49 AM SECONDARY SCHOOL REGISTRAR Height 174 cm (5' 8.5) 10/20/2024 11:49 AM SECONDARY SCHOOL REGISTRAR Body Mass Index 25.77 10/20/2024 11:49 AM SECONDARY SCHOOL REGISTRAR Plan of Treatment Not on file Insurance ANTHEM ACCESS ANTHEM ACCESS Care Teams Protozoology Teacher Relationship Specialty Start Date End Date Unknown, Notinfile PCP - General 04/29/24
[2025-05-20] MEDS: METOCLOPRAMIDE HCL INJ 10 MG/2 ML VIAL IV PUSH (19:21)
[2025-05-20 19:22] LABS: Hematocrit 45.2 % (37.0-47.0); Hemoglobin 14.9 g/dL (12.0-15.0); Immature Granulocyte Percent A 0.2 % (0-0.5); Lymphocytes Absolute Auto 1.52 K/mm3 (0.9-3.2); Mean Corpuscular HGB Conc 33.0 g/dl (32-36); Mean Corpuscular Hemoglobin 28.4 pg (26-34); Mean Corpuscular Volume 86.3 fl (80-100); Nucleated Red Blood Cells Absolute Auto 0.000 K/mm3 (0.0-0.012); Nucleated Red Blood Cells Perc 0.0 % (0.0-0.2); Platelet Count Result 239 k/mm3 (150-375); Red Blood Count 5.24 M/mm3 (4.2-5.4); White Blood Count 8.4 K/mm3 (4.5-10.0)
--- OUTSIDE RECORDS SUMMARY | 2025-05-20 19:28 | XMS_ITS | Clinical Summary ---
Author Organization [facility] Address [address] [place] [phone] Phone Care Team Providers Care Lap Grinder Name Role Phone Unavailable Primary Care Provider [...] patient's age to complete this topic Insurance [facility] [employer] PPO Advance Directives For more information, please contact: [phone] * Full Code (Latest Code Status on File) Date Activated Date Inactivated Comments 07/22/2020 12:23 PM 07/22/2020 5:33 PM
--- OUTSIDE RECORDS SUMMARY | 2025-05-20 19:28 | XMS_ITS | Clinical Summary ---
Author Organization [facility] Virtual Care Address [address] [place] [phone] Phone Care Team Providers Care Administrative Support Manager Name Role Phone Unknown, Notinfile Primary Care [...] Comments Blood Pressure 106/72 10/20/2024 11:49 AM ASPHALT MACHINE OPERATOR Pulse 80 10/20/2024 11:49 AM ASPHALT MACHINE OPERATOR Temperature 36.6 C (97.9 F) 08/02/2024 2:01 PM CDT Respiratory Rate 20 09/02/2024 2:08 PM CDT Oxygen Saturation 98% 08/02/2024 2:01 PM CDT Inhaled Oxygen Concentration - - Weight 78 kg (172 lb) 10/20/2024 11:49 AM ASPHALT MACHINE OPERATOR Height 174 cm (5' 8.5) 10/20/2024 11:49 AM ASPHALT MACHINE OPERATOR Body Mass Index 25.77 10/20/2024 11:49 AM ASPHALT MACHINE OPERATOR Plan of Treatment Health Maintenance Due Date [...] age to complete this topic [place] [address] ANTH ACCESS ANTH ACCESS Care Teams Administrative Support Manager Relationship Specialty Start Date End Date Unknown, Notinfile PCP - General 04/29/24
--- OUTSIDE RECORDS SUMMARY | 2025-05-20 19:28 | XMS_ITS | Referral Summary ---
Author Organization [facility] Virtual Care Address [address] [place] [phone] Phone Care Team Providers Care Animal Ride Attendant Name Role Phone Unknown, Notinfile Primary Care [...] Comments Blood Pressure 106/72 10/20/2024 11:49 AM TANK OPERATOR Pulse 80 10/20/2024 11:49 AM TANK OPERATOR Temperature 36.6 C (97.9 F) 08/02/2024 2:01 PM CDT Respiratory Rate 20 09/02/2024 2:08 PM CDT Oxygen Saturation 98% 08/02/2024 2:01 PM CDT Inhaled Oxygen Concentration - - Weight 78 kg (172 lb) 10/20/2024 11:49 AM TANK OPERATOR Height 174 cm (5' 8.5) 10/20/2024 11:49 AM TANK OPERATOR Body Mass Index 25.77 10/20/2024 11:49 AM TANK OPERATOR Plan of Treatment Not on file Insurance ANTHEM ACCESS ANTHEM ACCESS Care Teams Animal Ride Attendant Relationship Specialty Start Date End Date Unknown, Notinfile PCP - General 04/29/24
[2025-05-20 19:40] LABS: Alanine Aminotransferase 25 U/L (6-35); Albumin Level 5.0 g/dL (3.5-5.1); Alkaline Phosphatase 88 U/L (38-126); Anion Gap 11 mmol/L (4-12); Aspartate Amino Transferase 21 U/L (14-36); Bilirubin,Total 0.8 mg/dL (0.2-1.3); Blood Urea Nitrogen 13 mg/dL (7-17); Calcium 9.8 mg/dL (8.4-10.2); Carbon Dioxide 22 mmol/L (22-30); Chloride 103 mmol/L (98-107); Estimated CRCL calculation 76 ml/min; Estimated Glomerular Filt Rate > 60; Glucose 93 mg/dL (65-110); Potassium 3.9 mmol/L (3.4-5.0); Sodium 136 mmol/L (137-145); Total Protein 8.6 g/dL (6.3-8.2)
--- NOTE | 2025-05-20 20:10 | ED.HA ---
HPI - Headache General Chief Complaint: Headache Stated Complaint: Neuro wants pt admitted Time Seen by Provider: 05/20/25 18:13 History of Present Illness HPI Narrative: Patient has been having headache for the last 2 weeks, she does not usually get headaches, she had a CT scan that was suggestive idiopathic intracranial hypertension. She was seen by neurologist in clinic today who recommended she be admitted for MRI and lumbar puncture. Patient reports occasional nausea, photophobia. Related Data Home Medications ?Medication ?Instructions ?Recorded ?Confirmed ?Last Taken ?Type hydroxyzine HCl 25 mg tablet 25 mg PO BID PRN 05/20/25 05/20/25 Unknown History Allergies Allergy/AdvReac Type Severity Reaction Status Date / Time diclofenac Allergy Mild swelling Verified 05/20/25 18:20 and throat numbness codeine (From AdvReac Severe Hallucinati Verified 05/20/25 18:20 Tylenol-Codeine #3) ng Review of Systems Review of Systems: All systems reviewed & are unremarkable except as noted in HPI and below PMFSH Past Medical History Medical History (Updated 05/20/25 @ 20:13 by Suzy Davis MD) New onset headache 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 Dizziness Headache Double vision Granulation tissue anxiety Normal vaginal delivery and not yet delivered Encounter for elective induction of labor RUQ pain Kidney stones Left flank pain Thrombocytopenia affecting [place]'s syndrome Infertility Encounter for general adult medical examination without abnormal findings Subacute maxillary sinusitis Family History Family History Father Acute myocardial infarction Mother Diabetes mellitus Hypertension Heart disease Hypercholesterolemia Social History Social History Social History: Smoking status: Never smoker Second hand tobacco smoke exposure: No Alcohol intake: never Substance use: never Substance use type: does not use Do You Feel Safe in your Home?: Yes Lack of Transportation: No Lack of Food: Never True Current Housing: I Have Housing Concerned About Future Housing: No Difficulty Paying Gas/Electric Bills: No Difficulty Paying for Meds: No Currently Unemployed: No Education: High School Diploma/GED Difficulty w/ Childcare or Family Care: No Living arrangements: with family Occupation/Education: occupation 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 EYES: EOMI, conjunctiva normal, PERRL ENT: Hearing grossly intact LUNGS: Nonlabored breathing. HEART: [Regular rate and rhythm] ABD: [Soft], [nontender to palpation] EXT: Normal range of motion SKIN: [No rashes or lesions.] NEURO: [Alert and oriented x 3. No gross focal sensory or strength deficits.] Ambulating with normal steady gait. Speaking with clear speech. PSYCH: Normal affect Course Vital Signs Vital signs: Vital Signs Temperature 97.7 F 05/20/25 16:00 Pulse Rate 81 05/20/25 16:00 Respiratory Rate 16 05/20/25 16:00 Blood Pressure 119/85 05/20/25 16:00 Pulse Oximetry 98 05/20/25 16:00 Oxygen Delivery Room Air 05/20/25 16:00 Temperature 97.7 F 05/20/25 16:00 Pulse Rate 83 05/20/25 18:31 Respiratory Rate 16 05/20/25 18:31 Blood Pressure 115/76 05/20/25 18:31 Pulse Oximetry 97 05/20/25 18:31 Oxygen Delivery Room Air 05/20/25 18:16 MDM - Headache MDM Narrative Medical decision making narrative: 35-year-old female presents to the emergency department for 2 week headache that was concerning for IIH. Patient is hemodynamically stable. No focal neurological or cranial nerve deficits on exam. No meningeal signs. The headache was gradual in onset, it is not exertional and does not appear consistent with subarachnoid hemorrhage or intracranial bleeding. No trauma. Patient is given headache cocktail including Reglan, Benadryl. I did offer to attempt bedside LP versus having it done by interventional radiologist, with shared decision making with patient, as already been ongoing for 2 weeks, will opt for LP to be done once she is admitted. I had discussed this case with her neurologist Dr Conklin. On re-evaluation, patient tells me that she feels the best she's had in weeks. Informed that no IR here for a week. Updated Dr Conklin; anesthesia also don't do LPs here; Dr Conklin will attempt tomorrow. Lab Data 05/20/25 19:03 05/20/25 19:03 Labs: Lab Results 05/20/25 Range/Units 19:03 WBC 8.4 (4.5-10.0) K/mm3 RBC 5.24 (4.2-5.4) M/mm3 Hgb 14.9 (12.0-15.0) g/dL Hct 45.2 (37.0-47.0) % MCV 86.3 (80-100) fl MCH 28.4 (26-34) pg MCHC 33.0 (32-36) g/dl RDW 11.9 (11.5-14.5) % Plt Count 239 (150-375) k/mm3 MPV 10.4 (7.4-10.4) fl Immature Gran % (Auto) 0.2 (0-0.5) % Neut % (Auto) 77.1 H (45.5-73.1) % Lymph % (Auto) 18.0 L (18.3-44.2) % [place] % (Auto) 4.3 (2.6-8.5) % Eos % (Auto) 0.2 (0-4.4) % Baso % (Auto) 0.2 (0.2-1.2) % Lymph # (Auto) 1.52 (0.9-3.2) K/mm3 [place] # (Auto) 0.4 (0.1-0.6) K/mm3 Eos # (Auto) 0.0 (0-0.3) K/mm3 Baso # (Auto) 0.0 (0.0-0.1) K/mm3 Abs Immat Gran (auto) 0.02 (0.00-0.031) K/mm3 Absolute Neuts (auto) 6.5 (1.3-6.7) K/mm3 Absolute Nucleated RBC 0.000 (0.0-0.012) K/mm3 Nucleated RBC % 0.0 (0.0-0.2) % Sodium 136 L (137-145) mmol/L Potassium 3.9 (3.4-5.0) mmol/L Chloride 103 (98-107) mmol/L Carbon Dioxide 22 (22-30) mmol/L Anion Gap 11 (4-12) mmol/L BUN 13 D (7-17) mg/dL Creatinine 0.91 (0.7-1.0) mg/dL Estim Creat Clear Calc 76 ml/min Estimated GFR > 60 (59 - ) Glucose 93 (65-110) mg/dL Calcium 9.8 (8.4-10.2) mg/dL Total Bilirubin 0.8 (0.2-1.3) mg/dL AST 21 (14-36) U/L ALT 25 (6-35) U/L Alkaline Phosphatase 88 (38-126) U/L Total Protein 8.6 H (6.3-8.2) g/dL Albumin 5.0 (3.5-5.1) g/dL Discharge Plan Discharge Clinical Impression: Acute headache Patient Disposition: Still a Patient Condition: Stable Patient Language: Grenadian Prescriptions: No Action hydroxyzine HCl 25 mg tablet 25 mg PO BID PRN tramadol 50 mg tablet 50 mg PO Q6H PRN (Reason: pain) Qty: 28 0RF acetazolamide 250 mg tablet 250 mg PO BID Qty: 60 0RF Follow-up/Referrals: Segundo Jacobo MD [Primary Care Provider] -
[2025-05-20] MEDS: PROCHLORPERAZINE EDISYLATE 10 MG/2 ML VIAL IV PUSH (21:43)
--- NOTE | 2025-05-20 22:19 | ADMGEN ---
This patient, Jane Babin, was admitted to [facility] Surg Room 302-01. Patient/family oriented to hospital policies and general routines including ID bracelet, bed and alarms, visiting hours, pain management, procedures, bathroom and other care routines, personal items, smoking policy, room service/diet, and visiting hours. Information on how to activate the Rapid Response Team has been discussed. Patient/Family are encouraged to report perceived risks to care and to ask questions if they do not understand what they are told or what they should do.
[2025-05-21 05:48] VITALS: BP 102/67; PULSE 80; RESP 14; TEMP 36.4; O2SAT 99
--- NOTE | 2025-05-21 05:54 | PM.IMHP ---
H&P: HPI History of Present Illness Date/Time: 05/21/25 05:54 Chief Complaint: Headaches Narrative: 35-year-old female with history of anxiety, no prior history of headaches, presents to [facility] on 05/20/2025 sent in by neurologist Dr. Conklin as she has developed a severe headache for the past 2 weeks described as on the top of her head. When she presses down in her head it feels better. She has not had any change in vision, syncope. She has had some dizziness and some ivomiting. She has not traveled recently, been exposed to anyone ill, is not on OCP. Denies illicit drug use, alcohol or tobacco use. Previously ordered CT head on 05/18 did not demonstrate acute process but partially empty sella would decrease in craniocaudal thickness of the pituitary. In the ER she received a migraine cocktail with metoclopramide 10 mg IV x1, diphenhydramine 25 mg IV x1, Compazine 10 mg IV x1. She reports her headache was alleviated to /10. 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 Dizziness Double vision Granulation tissue anxiety Normal vaginal delivery and not yet delivered Encounter for elective induction of labor RUQ pain Kidney stones Left flank pain Thrombocytopenia affecting Amelia's syndrome Infertility Encounter for general adult medical examination without abnormal findings Subacute maxillary sinusitis Family History Family History Father Acute myocardial infarction Mother Diabetes mellitus Hypertension Heart disease Hypercholesterolemia Social History Social History Social History: Smoking status: Never smoker Second hand tobacco smoke exposure: No Alcohol intake: never Substance use: never Substance use type: does not use Do You Feel Safe in your Home?: Yes Lack of Transportation: No Lack of Food: Never True Current Housing: I Have Housing Concerned About Future Housing: No Difficulty Paying Gas/Electric Bills: No Difficulty Paying for Meds: No Currently Unemployed: No Education: High School Diploma/GED Difficulty w/ Childcare or Family Care: No Living arrangements: with family Occupation/Education: occupation 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 Gender identity (if verbalized by the patient): Female Sexual Orientation (if Verbalized by the Patient): Straight or Heterosexual Spiritual care concerns: No Meds Home Medications and Allergies Home Medications ?Medication ?Instructions ?Recorded ?Confirmed ?Type tramadol 50 mg tablet 50 mg PO Q6H PRN pain #28 tabs 05/18/25 05/20/25 Rx hydroxyzine HCl 25 mg tablet 25 mg PO BID PRN anxiety 05/20/25 05/20/25 History Allergies Allergy/AdvReac Type Severity Reaction Status Date / Time diclofenac Allergy Mild swelling Verified 05/20/25 18:20 and throat numbness codeine (From AdvReac Severe Hallucinati Verified 05/20/25 18:20 Tylenol-Codeine #3) ng Vital Signs Vital Signs - 24 hr 05/20/25 16:00 05/20/25 18:16 05/20/25 18:16 Temperature 97.7 F Pulse Rate 81 68 66 Respiratory Rate 16 12 13 Blood Pressure 119/85 123/82 123/82 Pulse Oximetry 98 100 100 Oxygen Delivery Room Air Room Air 05/20/25 18:31 05/20/25 19:02 05/20/25 19:16 Temperature Pulse Rate 83 75 70 Respiratory Rate 16 9 L 13 Blood Pressure 115/76 126/98 H 112/79 Pulse Oximetry 97 99 99 Oxygen Delivery 05/20/25 19:47 05/20/25 20:01 05/20/25 20:16 Temperature Pulse Rate 86 74 72 Respiratory Rate 12 13 11 L Blood Pressure 120/87 118/83 130/81 Pulse Oximetry 100 98 99 Oxygen Delivery 05/20/25 20:31 05/20/25 20:46 05/20/25 21:01 Temperature Pulse Rate 74 86 73 Respiratory Rate 10 L 21 H 11 L Blood Pressure 117/78 127/87 119/82 Pulse Oximetry 100 100 99 Oxygen Delivery 05/20/25 21:16 05/20/25 21:31 05/20/25 21:45 Temperature Pulse Rate 74 75 141 H Respiratory Rate 13 14 17 Blood Pressure 118/80 116/82 121/84 Pulse Oximetry 100 99 100 Oxygen Delivery 05/20/25 22:24 05/21/25 05:48 Temperature 97.5 F L 97.5 F L Pulse Rate 71 80 Respiratory Rate 14 14 Blood Pressure 119/79 102/67 Pulse Oximetry 99 99 Oxygen Delivery Exam Const: General: comfortable and no acute distress Other: A&O x3 HENMT: Mouth: Yes moist mucous membranes Eyes: Pupils: Equal, round and reactive pupils present Neck: Neck: supple Resp: Effort & Inspection: normal respiratory effort Auscultation: clear to auscultation bilaterally Cardio: Rate: regular rate Rhythm: regular rhythm Heart sounds: no gallops, no murmurs and no rubs GI: Inspection: non-distended GI Palp: Yes Soft to palpation : General: Yes bladder normal to palpation Neuro: Motor exam (neuro): 5/5 motor strength present throughout Sensory Exam: normal sensation Extrem: General: no edema H&P: Results Labs Labs: Short CBC 05/20/25 Range/Units 19:03 WBC 8.4 (4.5-10.0) K/mm3 Hgb 14.9 (12.0-15.0) g/dL Hct 45.2 (37.0-47.0) % Plt Count 239 (150-375) k/mm3 BMP 05/20/25 19:03 Sodium 136 L Potassium 3.9 Chloride 103 Carbon Dioxide 22 BUN 13 D Creatinine 0.91 Glucose 93 Calcium 9.8 Liver Function 05/20/25 Range/Units 19:03 Total Bilirubin 0.8 (0.2-1.3) mg/dL AST 21 (14-36) U/L ALT 25 (6-35) U/L Alkaline Phosphatase 88 (38-126) U/L Albumin 5.0 (3.5-5.1) g/dL Assessment and Plan Assessment and plan (1) Anxiety: Code(s): F41.9 - Anxiety disorder, unspecified Status: Acute (2) Headache: Code(s): R51.9 - Headache, unspecified Status: Acute Plan 35-year-old female with history of anxiety, no prior history of headaches, presents to [facility] on 05/20/2025 sent in by neurologist Dr. Conklin as she has developed a severe headache for the past 2 weeks described as on the top of her head. When she presses down in her head it feels better. She has not had any change in vision, syncope. She has had some dizziness and some ivomiting. She has not traveled recently, been exposed to anyone ill, is not on OCP. Denies illicit drug use, alcohol or tobacco use. Previously ordered CT head on 05/18 did not demonstrate acute process but partially empty sella would decrease in craniocaudal thickness of the pituitary. In the ER she received a migraine cocktail with metoclopramide 10 mg IV x1, diphenhydramine 25 mg IV x1, Compazine 10 mg IV x1. She reports her headache was alleviated to 11/14. ----- Neurology recommending admission. Pending lumbar puncture, MRI of the brain with MRV and MRA. Full code. Saline lock IV. NPO. Ambulate with assistance. SCDs. Hospitalist [facility] Advance Care Plan I have confirmed that the patient's Advanced Care Plan is present, code status is documented, or surrogate decision maker is listed in patient medical record.: Yes Medication Reconciliation I have utilized all available resources to obtain, update and review the patients current medications (includes all prescriptions, OTC, herbals, cannabis, and nutritional supplements).: Yes
--- NOTE | 2025-05-21 07:13 | P.PNIM_ITS ---
Progress Note: A&P Assessment and Plan (1) Headache: Code(s): R51.9 - Headache, unspecified Status: Acute Assessment and Plan: * Patient endorses a headache that started out of nowhere 2 weeks ago and has been persistent despite medications at home. She had an appointment this past week with Neurology in was informed to come to the hospital for admission * No history of headaches/strokes * Head CT: No fracture or acute intracranial process. Partially empty sella with decrease craniocaudal thickness of the pituitary which can occur in setting of idiopathic intracranial hypertension * No leukocytosis, nuchal rigidity, or fever * No major electrolyte abnormalities * Neurology consulted * Brain MRI, MRA, venography * Lumbar puncture -as Interventional Radiology is not here until Sunday, patient can be discharged home since symptoms have completely resolved and she is otherwise hemodynamically stable, without fever, nuchal rigidity, or leukocytosis * Reglan 10 mg p.r.n. Q 8 hours, Toradol 10 mg p.r.n. 2-3 times daily * If pain returns or gets worse over the weekend, return to emergency room * Pending brain MRI/MRA/venography results, can be discharged once these have resulted and if they are unremarkable or do not show any acute changes (2) Anxiety: Code(s): F41.9 - Anxiety disorder, unspecified Status: Acute Assessment and Plan: * Continue hydroxyzine Subjective Date/time seen: 05/21/25 07:13 Interval history: 35-year-old female with history of anxiety, no prior history of headaches, presents to [facility] on 05/20/2025 sent in by neurologist Dr. Conklin as she has developed a severe headache for the past 2 weeks described as on the top of her head. 05/21/2025 Patient is sitting comfortably in bed at time of examination. Denies any chest pain, shortness a breath, visual disturbances, headaches, dizziness, nuchal rigidity at this time. Patient is afebrile without leukocytosis. Vital signs are stable. Patient has been seen by Neurology who agrees with discharge at this time as patient's symptoms have completely subsided and given the fact that we do not have Interventional Radiology until Sunday. Patient is amenable to this plan. We are waiting on the brain MR I results at this time for patient can be discharged home. Patient is made aware of this plan and is acceptable. Review of Systems Review of Systems: All systems reviewed & are unremarkable except as noted in HPI and below (Subjective) Exam Const: General: comfortable and no acute distress Other: A&O x3 HENMT: Mouth: Yes moist mucous membranes Eyes: Pupils: Equal, round and reactive pupils present Neck: Neck: supple Resp: Effort & Inspection: normal respiratory effort Auscultation: clear to auscultation bilaterally Cardio: Rate: regular rate Rhythm: regular rhythm Heart sounds: no gallops, no murmurs and no rubs GI: Inspection: non-distended : General: Yes bladder normal to palpation Bimanual exam- vagina & uterus: bladder normal to palpation Neuro: Cranial nerves: Yes Equal, round and reactive pupils present Motor exam (neuro): 5/5 motor strength present throughout Sensory Exam: normal sensation Extrem: General: no edema Objective Data Vital Signs Vital Signs: Vital Signs - 24 hr 05/20/25 16:00 05/20/25 18:16 05/20/25 18:16 Temperature 97.7 F Pulse Rate 81 68 66 Respiratory Rate 16 12 13 Blood Pressure 119/85 123/82 123/82 Pulse Oximetry 98 100 100 Oxygen Delivery Room Air Room Air 05/20/25 18:31 05/20/25 19:02 05/20/25 19:16 Temperature Pulse Rate 83 75 70 Respiratory Rate 16 9 L 13 Blood Pressure 115/76 126/98 H 112/79 Pulse Oximetry 97 99 99 Oxygen Delivery 05/20/25 19:47 05/20/25 20:01 05/20/25 20:16 Temperature Pulse Rate 86 74 72 Respiratory Rate 12 13 11 L Blood Pressure 120/87 118/83 130/81 Pulse Oximetry 100 98 99 Oxygen Delivery 05/20/25 20:31 05/20/25 20:46 05/20/25 21:01 Temperature Pulse Rate 74 86 73 Respiratory Rate 10 L 21 H 11 L Blood Pressure 117/78 127/87 119/82 Pulse Oximetry 100 100 99 Oxygen Delivery 05/20/25 21:16 05/20/25 21:31 05/20/25 21:45 Temperature Pulse Rate 74 75 141 H Respiratory Rate 13 14 17 Blood Pressure 118/80 116/82 121/84 Pulse Oximetry 100 99 100 Oxygen Delivery 05/20/25 22:24 05/21/25 05:48 Temperature 97.5 F L 97.5 F L Pulse Rate 71 80 Respiratory Rate 14 14 Blood Pressure 119/79 102/67 Pulse Oximetry 99 99 Oxygen Delivery Intake/Output Intake/Output: Intake & Output 05/18/25 05/19/25 05/20/25 05/21/25 23:59 23:59 23:59 23:59 Intake Total 350 0 Balance 350 0 Meds/Results Medications: Active Medications Generic Name Dose Route Start Last Admin Trade Name Freq PRN Reason Stop Dose Admin Hydroxyzine HCl 25 mg 05/21/25 04:21 Hydroxyzine Hcl 25 Mg Tablet PO BID PRN anxiety Labs Labs: Laboratory Results - last 24 hr 05/20/25 19:03 WBC 8.4 RBC 5.24 Hgb 14.9 Hct 45.2 MCV 86.3 MCH 28.4 MCHC 33.0 RDW 11.9 Plt Count 239 MPV 10.4 Immature Gran % (Auto) 0.2 Neut % (Auto) 77.1 H Lymph % (Auto) 18.0 L [place] % (Auto) 4.3 Eos % (Auto) 0.2 Baso % (Auto) 0.2 Lymph # (Auto) 1.52 [place] # (Auto) 0.4 Eos # (Auto) 0.0 Baso # (Auto) 0.0 Abs Immat Gran (auto) 0.02 Absolute Neuts (auto) 6.5 Absolute Nucleated RBC 0.000 Nucleated RBC % 0.0 Sodium 136 L Potassium 3.9 Chloride 103 Carbon Dioxide 22 Anion Gap 11 BUN 13 D Creatinine 0.91 Estim Creat Clear Calc 76 Estimated GFR > 60 Glucose 93 Calcium 9.8 Total Bilirubin 0.8 AST 21 ALT 25 Alkaline Phosphatase 88 Total Protein 8.6 H Albumin 5.0 Quality VTE Prophylaxis VTE prophylaxis: mechanical ordered
--- NOTE | 2025-05-21 12:31 | P.CONNEU_ITS ---
Assessment and Plan Assessment and plan (1) New onset headache: Code(s): R51.9 - Headache, unspecified Status: Acute Plan I repaired discussion with the patient her . The patient afebrile and has not had any further vomiting or headache. They would prefer to have spinal tap under the x-ray guided by Interventional Radiology next Sunday particularly since the symptoms have significantly improved. An MRI of the brain with MR angiography and MR venography is recommended and hopefully will get done and we shall follow up the results and advise the patient. The meanwhile if she has any pain it appears the Reglan and Benadryl and Toradol could be a good combination for her I have communicated these findings to the hospitalist and the nursing staff. if MRI does not show any abnormalities she would be discharged with arranging to have a spinal tap with pressure recording on next Sunday. This of course if she has still some symptoms of headache somewhat similar to what she has been having. We can give her prescription of Reglan 10 mg p.r.n. Q 8 hourly and Toradol 10 mg tablet p.r.n. 2 to 3 times a day Until the spinal taps done. I also advised that if the pain gets worse over the weekend this should come back to the emergency room. The patient her are agreeable to this plan. Consult date: 05/21/25 HPI: Jane Babin is a 35 year old female With history of headache which started 2 weeks ago. There is no prior history of any chronic headache or migraine. She does not recall having any head trauma or viral infection. The patient has been in usual state of health prior to the onset of the symptoms. She denies any diplopia or loss of vision or any other symptoms. While in my office she had vomited once. She was not feeling well at all. In the emergency room she was given a cocktail for headache which included Reglan, Benadryl and with that her pain went down to 1 on a scale of 10. Attempts were made to get an spinal tap to the Interventional Radiology however early as the could be back would be next Sunday. I talked to the ER doctor offered that willing to do that in the morning depending upon how she does. This morning she has no headache or vomiting. She is feeling much better. 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 Dizziness Double vision Granulation tissue anxiety Normal vaginal delivery and not yet delivered Encounter for elective induction of labor RUQ pain Kidney stones Left flank pain Thrombocytopenia affecting Aleah's syndrome Infertility Encounter for general adult medical examination without abnormal findings Subacute maxillary sinusitis Family History Family History Father Acute myocardial infarction Mother Diabetes mellitus Hypertension Heart disease Hypercholesterolemia Social History Social History Social History: Smoking status: Never smoker Second hand tobacco smoke exposure: No Alcohol intake: never Substance use: never Substance use type: does not use Do You Feel Safe in your Home?: Yes Lack of Transportation: No Lack of Food: Never True Current Housing: I Have Housing Concerned About Future Housing: No Difficulty Paying Gas/Electric Bills: No Difficulty Paying for Meds: No Currently Unemployed: No Education: High School Diploma/GED Difficulty w/ Childcare or Family Care: No Living arrangements: with family Occupation/Education: occupation 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 Gender identity (if verbalized by the patient): Female Sexual Orientation (if Verbalized by the Patient): Straight or Heterosexual Spiritual care concerns: No Meds Home Medications and Allergies Home Medications ?Medication ?Instructions ?Recorded ?Confirmed ?Type tramadol 50 mg tablet 50 mg PO Q6H PRN pain #28 tabs 05/18/25 05/20/25 Rx hydroxyzine HCl 25 mg tablet 25 mg PO BID PRN anxiety 05/20/25 05/20/25 History Allergies Allergy/AdvReac Type Severity Reaction Status Date / Time diclofenac Allergy Mild swelling Verified 05/20/25 18:20 and throat numbness codeine (From AdvReac Severe Hallucinati Verified 05/20/25 18:20 Tylenol-Codeine #3) ng Vital Signs Vital Signs - 24 hr 05/20/25 16:00 05/20/25 18:16 05/20/25 18:16 Temperature 97.7 F Pulse Rate 81 68 66 Respiratory Rate 16 12 13 Blood Pressure 119/85 123/82 123/82 Pulse Oximetry 98 100 100 Oxygen Delivery Room Air Room Air 05/20/25 18:31 05/20/25 19:02 05/20/25 19:16 Temperature Pulse Rate 83 75 70 Respiratory Rate 16 9 L 13 Blood Pressure 115/76 126/98 H 112/79 Pulse Oximetry 97 99 99 Oxygen Delivery 05/20/25 19:47 05/20/25 20:01 05/20/25 20:16 Temperature Pulse Rate 86 74 72 Respiratory Rate 12 13 11 L Blood Pressure 120/87 118/83 130/81 Pulse Oximetry 100 98 99 Oxygen Delivery 05/20/25 20:31 05/20/25 20:46 05/20/25 21:01 Temperature Pulse Rate 74 86 73 Respiratory Rate 10 L 21 H 11 L Blood Pressure 117/78 127/87 119/82 Pulse Oximetry 100 100 99 Oxygen Delivery 05/20/25 21:16 05/20/25 21:31 05/20/25 21:45 Temperature Pulse Rate 74 75 141 H Respiratory Rate 13 14 17 Blood Pressure 118/80 116/82 121/84 Pulse Oximetry 100 99 100 Oxygen Delivery 05/20/25 22:24 05/21/25 05:48 Temperature 97.5 F L 97.5 F L Pulse Rate 71 80 Respiratory Rate 14 14 Blood Pressure 119/79 102/67 Pulse Oximetry 99 99 Oxygen Delivery Exam 2 Const: General: cooperative, well developed and alert O rientation/consciousness: patient oriented x3 HENMT: Head: atraumatic Mouth: Yes oropharynx normal Eyes: Alignment and Position: position normal Pupils: Equal, round and reactive pupils present EOM: EOMs intact bilaterally Neck: Neck: supple Resp: Effort & Inspection: normal respiratory effort Skin: General skin exam: normal color Neuro: General: oriented to time Cranial nerves: Yes CN's II-XII intact bilaterally and Yes facial symmetry Cognition (Neuro): normal cognition S peech: normal speech Motor exam (neuro): 5/5 motor strength present throughout and Motor abnormalities not present Results Labs 05/20/25 19:03 05/20/25 19:03 Labs: Short CBC 05/20/25 Range/Units 19:03 WBC 8.4 (4.5-10.0) K/mm3 Hgb 14.9 (12.0-15.0) g/dL Hct 45.2 (37.0-47.0) % Plt Count 239 (150-375) k/mm3 [facility] 05/20/25 19:03 Sodium 136 L Potassium 3.9 Chloride 103 Carbon Dioxide 22 BUN 13 D Creatinine 0.91 Glucose 93 Calcium 9.8 Liver Function 05/20/25 Range/Units 19:03 Total Bilirubin 0.8 (0.2-1.3) mg/dL AST 21 (14-36) U/L ALT 25 (6-35) U/L Alkaline Phosphatase 88 (38-126) U/L Albumin 5.0 (3.5-5.1) g/dL
[2025-05-21 14:00] VITALS: BP 103/75; PULSE 77; RESP 16; TEMP 36.6; O2SAT 99
--- NOTE | 2025-05-21 15:39 | PM.DS ---
DS: Admitting Diagnosis Discharge Date 05/21/2025 Admitting Diagnosis Headache DS: Discharge Diagnosis Discharge Diagnosis (1) Anxiety: Code(s): F41.9 - Anxiety disorder, unspecified Status: Acute (2) Headache: Code(s): R51.9 - Headache, unspecified Status: Acute DS: Summary Hospital Course Reason for hospitalization: Headache Hospital Course: 35-year-old female with history of anxiety, no prior history of headaches, presents to [facility] on 05/20/2025 sent in by neurologist Dr. Conklin as she has developed a severe headache for the past 2 weeks described as on the top of her head. When she presses down in her head it feels better. She has not had any change in vision, syncope. She has had some dizziness and some ivomiting. She has not traveled recently, been exposed to anyone ill, is not on OCP. Denies illicit drug use, alcohol or tobacco use. Previously ordered CT head on 05/18 did not demonstrate acute process but partially empty sella would decrease in craniocaudal thickness of the pituitary. In the ER she received a migraine cocktail with metoclopramide 10 mg IV x1, diphenhydramine 25 mg IV x1, Compazine 10 mg IV x1. She reports her headache was alleviated to 1/10. Neurology was consulted regarding a new onset headache. Patient is afebrile upon exam and has not had any further issues with headaches or nausea/vomiting. Given patient's hemodynamics stability, lack of fever, nuchal rigidity, persisting headache, dizziness, visual disturbances, or abnormal white count, patient can otherwise be safely discharged with appropriate follow-up in the outpatient setting. Neurology is in agreement that the patient can have a spinal tap under under x-ray guided by interventional radiology next Sunday as Interventional Radiology is not here in the hospital until Sunday morning. Since the patient's symptoms have completely subsided at this time, patient is in agreement with this plan as well. Status at Discharge Functional status at discharge: independent ambulation Overall status at discharge: patient is back to baseline Time Spent with Patient Time attestation: Total time spent providing and/or coordinating discharge services: 41 Exam Const: General: comfortable and no acute distress Other: A&O x3 HENMT: Mouth: Yes moist mucous membranes Eyes: Pupils: Equal, round and reactive pupils present Neck: Neck: supple Resp: Effort & Inspection: normal respiratory effort Auscultation: clear to auscultation bilaterally Cardio: Rate: regular rate Rhythm: regular rhythm Heart sounds: no gallops, no murmurs and no rubs GI: Inspection: non-distended : General: Yes bladder normal to palpation Bimanual exam- vagina & uterus: bladder normal to palpation Neuro: Cranial nerves: Yes Equal, round and reactive pupils present Motor exam (neuro): 5/5 motor strength present throughout Sensory Exam: normal sensation Extrem: General: no edema DS: Data Data Completed and Pending Labs on day of discharge: Labs from last 24 hours 05/20/25 19:03 WBC 8.4 RBC 5.24 Hgb 14.9 Hct 45.2 MCV 86.3 MCH 28.4 MCHC 33.0 RDW 11.9 Plt Count 239 MPV 10.4 Immature Gran % (Auto) 0.2 Neut % (Auto) 77.1 H Lymph % (Auto) 18.0 L Nicollet % (Auto) 4.3 Eos % (Auto) 0.2 Baso % (Auto) 0.2 Lymph # (Auto) 1.52 Nicollet # (Auto) 0.4 Eos # (Auto) 0.0 Baso # (Auto) 0.0 Abs Immat Gran (auto) 0.02 Absolute Neuts (auto) 6.5 Absolute Nucleated RBC 0.000 Nucleated RBC % 0.0 Sodium 136 L Potassium 3.9 Chloride 103 Carbon Dioxide 22 Anion Gap 11 BUN 13 D Creatinine 0.91 Estim Creat Clear Calc 76 Estimated GFR > 60 Glucose 93 Calcium 9.8 Total Bilirubin 0.8 AST 21 ALT 25 Alkaline Phosphatase 88 Total Protein 8.6 H Albumin 5.0 Discharge Plan Discharge Attending physician on discharge: Saravanan Serna Consulting providers: Angel Booth; Real Conklin Discharging Clinician: Angel Booth Anticipated Discharge Date/Time: 05/21/25 15:14 Patient Disposition: Home Activity: as tolerated Diet: heart healthy Discharge Instructions: Discharge disposition: Home, stable Take medications as prescribed Monitor blood pressures Take caution while standing, rising, or moving Change positions slowly taking a break between each position change If you standing feel dizzy sit back down and take a break Encouraged to continue with yearly vaccinations Return to the emergency department if he developed sudden shortness of breath, chest pain, nausea, vomiting, upset stomach or intractable diarrhea Return to the emergency department if you develop fever greater than 101.5 Follow-up with the primary care physician within 1-2 weeks You're scheduled for lumbar puncture on 10:30 a.m. on Sunday, 05/25 Follow-up with neurology early next week regarding your lumbar puncture results. Thank you for choosing [facility] for your healthcare needs Patient Instructions: Antibiotic Form Patient Language: Nepalese Stand Alone Forms: General Discharge Information Follow-up/Referrals: Segundo Jacobo MD [Primary Care Provider] - Real Conklin MD [Physician] - Discharge Medications: Continued hydroxyzine HCl 25 mg tablet 25 mg PO BID PRN (Reason: anxiety) Other Ambulatory Orders: Coccidioides Abs Panel, CSF (Routine) Timeframe: 20250525 Location: Determined by Patient Ordered By: Angel Booth Cell Count w Diff CSF (Routine) Timeframe: 20250525 Location: Determined by Patient Ordered By: Angel Booth Glucose CSF (Routine) Timeframe: 20250525 Location: Determined by Patient Ordered By: Angel Booth Lactate Dehydrogenase CSF (Routine) Timeframe: 20250525 Location: Determined by Patient Ordered By: Angel Booth Total Protein CSF (Routine) Timeframe: 20250525 Location: Determined by Patient Ordered By: Angel Booth CSF Culture (Routine) Timeframe: 20250525 Location: Determined by Patient Ordered By: Angel Booth Aleksey-Adorno Virus RT PCR, CSF (Routine) Timeframe: 20250525 Location: Determined by Patient Ordered By: Angel Booth Enterovirus RT-PCR, CSF (Routine) Timeframe: 20250525 Location: Determined by Patient Ordered By: Angel Booth XR lum punc diag w/imaging (Routine) Timeframe: 20250525 Location: Determined by Patient Ordered By: Angel Booth Lyme, Line Blot, CSF (Routine) Timeframe: 20250525 Location: Determined by Patient Ordered By: Angel Booth VDRL, CSF (Routine) Timeframe: 20250525 Location: Determined by Patient Ordered By: Angel Booth Date of admission: 05/20/25 20:24 Primary Care Provider: Segundo Jacobo Admitting Provider: Destiny Gerene Attending physician on admission: Destiny Greene Condition: Stable
--- NOTE | 2025-05-26 07:41 | PC.NURSE ---
Called lab after receiving message from Gerry, in the lab, with CSF results. Reported that RBC rare and no organisms seen in CSF.
== END 2025-05-21 17:55 | disposition home or self-care (01) | DRG 103 ==
LOC: ANHED 20:13 → ANH3MEDSUR 21:27
PROVIDERS: Registered Nurse; Admitting Provider General Practice; Emergency Provider Emergency Medicine; PCP Family Medicine; Visit Provider Physician Assistant
DX: R51.9 Headache, unspecified (principal); F41.9 Anxiety disorder, unspecified
CPT/HCPCS: 36415; 70544; 70551; 80053; 85025; 96374; 96375; 99285; J0780; J1200; J2765

== ENCOUNTER 2025-05-25 08:27 | Outpatient (CLI) | payer BC, SELFPAY ==
--- NOTE | 2025-05-21 14:29 | PC.NURSE ---
Pre Radiology instructions Report to the outpatient blanca arben on date _[id number]_ at time _0830_ for procedure Time: _1030_ YOU MAY BE MONITORED AT HOSPITAL FOR UP TO 4 HOURS AFTER YOUR PROCEDURE. A visitor will be allowed to accompany the patient into the hospital. You and your visitor will be asked to self-screen and do not enter if you have any COVID symptoms. A mask is OPTIONAL within the hospital. Patients are to have no food or drink 6 hours prior to procedure time Driving will be restricted after the procedure, you must have a person to drive you home. Labs will be drawn in preop area and once reviewed, you will be taken to radiology area for procedure. When the procedure is completed, you will be taken to outpatient where you will be monitored for several hours. You may have one visitor in this area. Other than holding anti-coagulants, patient may take other medication(s) as scheduled. Prior to your appointment date patients are instructed to hold anti-coagulants after discussing with ordering provider to stop. If unable to discontinue anti-coagulants please notify radiologist. ? No aspirin or warfarin (Coumadin) for 7 days prior to the procedure. ? No clopidogrel (Plavix), ticagrelor (Brilinta), prasugrel (Effient) or dabigatran (Pradaxa) for 5 days prior to the procedure. ? No rivaroxaban (Xarelto), apixaban (Eliquis), dipyridamole (Aggrenox or Persantine) or cilostazol (Pletal) for 2 days prior to the procedure. Medications to discontinue per physician: Date to take last dose: Please leave all valuables, including medications, at home the day of procedure. The hospital will not accept responsibility for valuables. Wear comfortable, loose fitting clothing.? Follow any additional instructions given to you from ordering provider. Telephone instructions given to __Jane__and asked if any additional questions and then verbalized understanding. Patient advised to call scheduling provider office or registration scheduling [phone] if any additional questions.
[2025-05-21 15:12] VITALS: BMI 26.4
[2025-05-25] VITALS (7 sets, daily range): BP systolic 104–115; BP diastolic 64–87; PULSE 66–77; RESP 16; TEMP 36.3; O2SAT 99–100
--- NOTE | ~2025-05-25 | XR_ITS ---
EXAMINATION: XR lumbar puncture diagnostic DATE: 05/25/2025 12:35 INDICATION: Headache with partial empty sella on CT for which idiopathic intracranial hypertension is suspected. TECHNIQUE: After informed consent was obtained, the patient was brought to the fluoroscopy suite and placed in t he prone position on the procedure table. Once a timeout was performed as per protocol the lower back was prepped and draped in the standard st erile fashion (with chlorhexidine). 1% lidocaine without epinephrine was utilized for dermal anesthesia. A 22-gauge spinal needle was then advanced into the spinal canal at the level of L3. Initially, the output contained blood products. The patient was then placed into reverse Trendelenburg, and the spinal needle was withdrawn approxima tely 1 to 3 mm. The canal was decompressed to such a degree that even with this small amount of withd shilpa, the spinal needle was outside of the spinal canal. This was repeated 2-3 additional times, yie lding the same result. Given the patient's degree of hypovolemia, the option to return following aggressive hydration, if cl inical suspicion for idiopathic intracranial hypertension remains is present. This case was discussed with Dr. Conklin (the patient's neurologist), who will see her in follow-up an d make a determination. Fluoroscopy exposure time was 1.3 minutes DOSE AREA PRODUCT: 5.06 Gy-cm2 The total number of images was 2. FINDINGS: Real-time fluoroscopy demonstrates the needle at the level of L3, to the right of midline. IMPRESSION: Technically unsuccessful and subsequently aborted fluoroscopic lumbar puncture, secondary to hypovole penelope, as detailed above. Given the patient's degree of hypovolemia, the option to return following aggressive hydration, if cl inical suspicion for idiopathic intracranial hypertension remains is present. This case was discussed with Dr. Conklin (the patient's neurologist), who will see her in follow-up an d make a determination regarding follow-up. Reviewed, dictated and finalized at location A. IMPRESSION: Technically unsuccessful and subsequently aborted fluoroscopic lumbar puncture, secondary to hypovolemia, as detailed above. Given the patient's degree of hypovolemia, the option to return following aggre ssive hydration, if clinical suspicion for idiopathic intracranial hypertension remains is present. This case was discussed with Dr. Conklin (the patient's neurologist), who will s ee her in follow-up and make a determination regarding follow-up.
--- OUTSIDE RECORDS SUMMARY | 2025-05-25 08:30 | XMS_ITS | Clinical Summary ---
Author Organization [facility] Virtual Care Address [address] [place] [phone] Phone Care Team Providers Care Automobile Radiator Mechanic Name Role Phone Unknown, Notinfile Primary Care [...] Comments Blood Pressure 106/72 10/20/2024 11:49 AM SAFETY PROFESSIONAL Pulse 80 10/20/2024 11:49 AM SAFETY PROFESSIONAL Temperature 36.6 C (97.9 F) 08/02/2024 2:01 PM CDT Respiratory Rate 20 09/02/2024 2:08 PM CDT Oxygen Saturation 98% 08/02/2024 2:01 PM CDT Inhaled Oxygen Concentration - - Weight 78 kg (172 lb) 10/20/2024 11:49 AM SAFETY PROFESSIONAL Height 174 cm (5' 8.5) 10/20/2024 11:49 AM SAFETY PROFESSIONAL Body Mass Index 25.77 10/20/2024 11:49 AM SAFETY PROFESSIONAL Plan of Treatment Health Maintenance Due Date [...] age to complete this topic [place] [address] ANTH ACCESS ANTH ACCESS Care Teams Automobile Radiator Mechanic Relationship Specialty Start Date End Date Unknown, Notinfile PCP - General 04/29/24
--- OUTSIDE RECORDS SUMMARY | 2025-05-25 08:30 | XMS_ITS | Referral Summary ---
Author Organization [facility] Virtual Care Address [address] [place] [phone] Phone Care Team Providers Care Seasoning Sprayer Name Role Phone Unknown, Notinfile Primary Care [...] Comments Blood Pressure 106/72 10/20/2024 11:49 AM ENVIRONMENTAL SERVICES FLOOR TECH Pulse 80 10/20/2024 11:49 AM ENVIRONMENTAL SERVICES FLOOR TECH Temperature 36.6 C (97.9 F) 08/02/2024 2:01 PM CDT Respiratory Rate 20 09/02/2024 2:08 PM CDT Oxygen Saturation 98% 08/02/2024 2:01 PM CDT Inhaled Oxygen Concentration - - Weight 78 kg (172 lb) 10/20/2024 11:49 AM ENVIRONMENTAL SERVICES FLOOR TECH Height 174 cm (5' 8.5) 10/20/2024 11:49 AM ENVIRONMENTAL SERVICES FLOOR TECH Body Mass Index 25.77 10/20/2024 11:49 AM ENVIRONMENTAL SERVICES FLOOR TECH Plan of Treatment Not on file Insurance ANTHEM ACCESS ANTHEM ACCESS Care Teams Seasoning Sprayer Relationship Specialty Start Date End Date Unknown, Notinfile PCP - General 04/29/24
--- OUTSIDE RECORDS SUMMARY | 2025-05-25 08:30 | XMS_ITS | Clinical Summary ---
Author Organization [facility] Address [address] [place] [phone] Phone Care Team Providers Care Gwot Ia/Ilo Intelligence Support Name Role Phone Unavailable Primary Care Provider [...] Health Maintenance Due Date Last Done Comments HPV VACCINES (1 - 3-dose series) 02/12/2004 DTAP/TDAP/TD VACCINES (1 - Tdap) 02/12/2008 HEPATITIS B VACCINES (1 of 3 - 19+ 3-dose series) 07/2008 HPV/Cotest (21-29) 2010 CERVICAL CANCER SCREENING 2019 HPV/Cotest (30-65) 2019 PAP SMEAR 2019 INFLUENZA VACCINE (#1) 2025 Insurance [facility] [employer] PPO Advance Directives For more information, please contact: [phone] * Full Code (Latest Code Status on File) Date Activated Date Inactivated Comments 07/22/2020 12:23 PM 07/22/2020 5:33 PM
[2025-05-25 10:11] LABS: INR 1.1; Prothrombin Time 13.7 Seconds (11.1-14.7)
[2025-05-25 10:43] LABS: BEDSIDEPREGUCG Negative (Negative)
[2025-05-25 10:46] LABS: Hematocrit 40.0 % (37.0-47.0); Hemoglobin 13.3 g/dL (12.0-15.0); Immature Granulocyte Percent A 0.2 % (0-0.5); Lymphocytes Absolute Auto 1.86 K/mm3 (0.9-3.2); Mean Corpuscular HGB Conc 33.3 g/dl (32-36); Mean Corpuscular Hemoglobin 28.9 pg (26-34); Mean Corpuscular Volume 86.8 fl (80-100); Nucleated Red Blood Cells Absolute Auto 0.000 K/mm3 (0.0-0.012); Nucleated Red Blood Cells Perc 0.0 % (0.0-0.2); Platelet Count Result 203 k/mm3 (150-375); Red Blood Count 4.61 M/mm3 (4.2-5.4); White Blood Count 5.3 K/mm3 (4.5-10.0)
--- NOTE | 2025-05-25 12:31 | PM.OP ---
Procedure Note - Brief Procedure Note - Brief Date of procedure: 05/25/25 idiopathic intracranial htn suspected secondary to CT head w partial empty sella Post-op diagnosis: Same Procedure performed: Image guided LP Surgeon: Kaylen Vega MD Findings: Sterile technique Pt prone Time out performed. At level of L3, 3 separate accesses obtained. opening P 4 cm CSF Approximately 3cc of CSF obtained. Pt extremely dehydrated. Fluid returned only in reverse trendelenberg. Procedure aborted. Sterile dressing applied. Description of procedure: as above Estimated blood loss (mL): 0.1 Condition: Stable Disposition: Same day
[2025-05-25] MEDS: ONDANSETRON HCL ODT 4 MG TABLET PO (12:33)
[2025-05-25] MEDS: KETOROLAC 10 MG TABLET PO (13:05)
--- NOTE | 2025-05-25 13:33 | SUR.PHASEII ---
1220 DR. HERRERA CALLED RE: PATIENT'S NAUSEA AND SEVERE OVERALL HEADACHE 10/10 WITH PHOTOPHOBIA. ZOFRAN, TORADOL, REGULAR DIET ORDERED. PATIENT REMAINS FLAT ON STRETCHER WITH LIGHTS OFF.
--- NOTE | 2025-05-25 13:34 | SUR.PHASEII ---
1225 ENCOURAGING PATIENT TO DRINK FLUIDS PER DR. HERRERA'S RECOMMENDATION.
--- NOTE | 2025-05-25 14:26 | SUR.PHASEII ---
1400 DR. HERRERA CALLED PER HER REQUEST TO UPDATE HER RE: PATIENT'S STATUS. PATIENT HAS NO NAUSEA, HEADACHE IS 3/10; C/O'D TIGHTNESS IN LOWER BACK, SOMEWHAT RELIEVED AFTER WALKING AND URINATING.
== END 2025-05-25 14:28 | disposition home or self-care (01) ==
PROVIDERS: PCP Family Medicine; Referring Provider Psychiatry & Neurology Neurology; Visit Provider Radiology Diagnostic Radiology
PROC: 009U3ZZ Drainage of Spinal Canal, Percutaneous Approach (ICD-10-PCS; CPT 62328; principal; 2025-05-25 10:30)
DX: R51.9 Headache, unspecified (principal)
CPT/HCPCS: 36415; 62328; 82945; 83615; 84157; 85025; 85610; 87070; 87075; 89051; A9270

== ENCOUNTER 2025-10-07 10:14 | Outpatient (CLI) | payer BC, SELFPAY ==
--- OUTSIDE RECORDS SUMMARY | 2025-10-07 11:29 | XMS_ITS | Encounter Summary ---
Author Organization [facility] Healthcare Address [address] [place] [address] Care Team Providers Care Cargo Services Coordinator Name Role Phone Unknown, Notinfile Unavailable Unavailable Segundo Jacobo MD Primary Care Provider Encounter Details Date Type Department Care Team (Late st Contact Info) Description 08/19/2025 Results Follow-Up [facility] [address] [place] [phone] Poly Borjas RN Influenza A/B, RSV, and COVID-19 PCR Nasopharyngeal Social History Tobacco Use Types Packs/Day Years Used Date Smoking Tobacco: Never Smokeless Tobacco: Never AUDIT-C Answer Date Recorded Q1: How often [...] Orientation Straight 04/29/2024 9: 38 AM CDT documented as of this encounter Functional Status documented as of this encounter Plan of Treatment Not on file documented as of this encounter Visit Diagnoses Not on filedocumented in this encounter Additional Health Concerns Infection Onset Date Last Indicated Resolved Time COVID: Suspected 08/19/2025 08/19/2025 08/19/2025 8:26 AM CDT COVID: Suspected 08/19/2025 08/19/2025 08/19/2025 4:17 PM CDT documented as of this encounter Care Teams Cargo Services Coordinator Relationship Specialty Start Date End Date Segundo Jacobo MD [address] [facility] [address] [place] [address] PCP - General Family Medicine 08/19/25 Unknown, Notinfile 07/24/25 documented as of this encounter
--- OUTSIDE RECORDS SUMMARY | 2025-10-07 11:29 | XMS_ITS | Clinical Summary ---
Author Organization [facility] Address [address] [place] [phone] Phone Care Team Providers Care Insurance Verification Specialist Name Role Phone Unavailable Primary Care [...] declined 07/22/2020 How often do you attend amish or gnosticist serv ices? Patient declined 07/22/2020 Do you belong to any clubs o r organizations such as amish groups, unions, fraternal or athletic groups, or [...] 19+ 3-dose series) 07/2008 HPV/Cotest (21-29) 2010 HPV VACCINES (1 - 3-dose SCDM series) 02/12/2016 CERVICAL CANCER SCREENING 2019 HPV/Cotest (30-65) 2019 PAP SMEAR 2019 INFLUENZA VACCINE (#1) 2025 Insurance [facility] [employer] formerly [employer] PPO Advance Directives For more information, please contact: [phone] * Full Code (Latest Code Status on File) Date Activated Date Inactivated Comments 07/22/2020 12:23 PM 07/22/2020 5:33 PM
--- OUTSIDE RECORDS SUMMARY | 2025-10-07 11:29 | XMS_ITS | Encounter Summary ---
Author Organization [facility] Healthcare Address [address] [place] [id number] Care Team Providers Care Director Of Medical Review Name Role Phone Unknown, Notinfile Unavailable Unavailable Segundo Jacobo MD Primary Care Provider Encounter Details Date Type Department Care Team (Late st Contact Info) Description 10/07/2025 Telephone [facility] Medical Group Primary Care at [address] [phone] Segundo Jacobo MD [address] [facility] [address] [facility] [address] [place] [address] Social History Tobacco Use Types Packs/Day Years [...] AM CDT documented as of this encounter Miscellaneous Notes * Telephone Encounter - Emely Winn - 10/07/2025 9:33 AM CST Patient was seen in [facility] and should have been billed through [facility] and not her private insurance. CRM placed. H WINDING SUPERVISOR documented in this encounter Plan of Treatment Not on file documented as of this encounter Visit Diagnoses Not on filedocumented in this encounter Care Teams Director Of Medical Review Relationship Specialty Start Date End Date Segundo Jacobo MD [address] [facility] [address] [place] [address] PCP - General Family Medicine 08/19/25 Unknown, Notinfile 07/24/25 documented as of this encounter
--- OUTSIDE RECORDS SUMMARY | 2025-10-07 11:29 | XMS_ITS | Clinical Summary ---
Author Organization [facility] Virtual Care Address [address] [place] [phone] Phone Care Team Providers Care Contract Mail Carrier Name Role Phone Unknown, Notinfile Unavailable Unavailable Segundo Jacobo MD Primary Care Provider Allergies Active Allergy Reactions Criticality Noted Date Comments Acetaminophen-Codeine Hallucinations High 07/22/2020 Diclofenac Angioedema,Swelling High 07/22/2020 Medications hydrOXYzine (ATARAX) 25 mg tablet 5 Active lidocaine viscous (XYLOCAINE) 2 % solutionIndicat ions:Pharyngiti s with viral syndrome Apply 10 mL to the mouth or throat every 6 (six) hours as needed (sore throat) May mix with 30 ml of Mylanta 100 mL 5 Active Additional Information Patient not taking.Reported on 08/19/2025 benzonatate (TESSALON) 200 mg capsuleIndicati ons:Pharyngitis with viral syndrome Take 1 capsule (200 mg total) by mouth 3 (three) times a day as needed for cough 30 capsule 5 Active Additional Information Patient not taking.Reported on 08/19/2025 Active Problems No known active problems Encounters Date Type Department Care Team Description 10/07/2025 Telephone [facility] Medical Group Primary Care at [address] [phone] Segundo Jacobo MD 10/07/2025 Telephone [facility] [address] [address] Sadie Uribe, DIPTI [place] Employee Screening 08/19/2025 8:30 AM CDT Clinical Support [facility] Medical [facility] Convenient Care at [address] [phone] Encounter for laboratory testing for COVID-19 virus (Primary Dx) 08/19/2025 8:23 AM CDT - 08/19/2025 11:59 PM CDT Hospital Encounter [address] [address] Body aches; Stomach cramps Discharge Disposition: Discharge to home or self care 08/19/2025 8:00 AM CDT Office Visit [facility] Medical [facility] Care at [address] [phone] Maria G Nichole NP Acute cough (Primary Dx); Ear pain, bilateral; Functional diarrhea 08/19/2025 Results Follow-Up [address] [address] Poly Borjas RN Influenza A/B, RSV, and COVID-19 PCR Nasopharyngeal 08/19/[address] [address] Sadie Uribe, [place] Employee Screening 07/30/2025 Results Follow-Up [address] [address] Sherice Parks RN Influenza A/B, RSV, and COVID-19 PCR Nasopharyngeal 07/29/2025 9:45 AM CDT Clinical Support [facility] Medical [facility]ient Care at [address] [phone] Encounter for screening for COVID-19 (Primary Dx) 07/29/2025 9:31 AM CDT - 07/29/2025 11:59 PM CDT Hospital Encounter [address] [address] Nausea and vomiting, unspecified vomiting type; Fever, unspecified fever cause; Cough, unspecified type; Sore throat; Body aches; Chills; Weakness; Nasal congestion; Hoarseness Discharge Disposition: Discharge to home or self care 07/29/[address] [address] Sherice Parks RN [place] Employee Screening 07/27/[address] [address] Tammy Bal RN 07/24/2025 10:50 AM CDT Ancillary Procedure [facility] Medical Group Imaging at [address] [phone] Pharyngitis with viral syndrome 07/24/2025 10:15 AM CDT Office Visit [facility] Medical [facility] Con[facility]ient Care at [address] [phone] Radha Negro, ASHLY Pharyngitis with viral syndrome (Primary Dx) 07/24/2025 Results Follow-Up [facility] Medical [facility] Care at [address] [phone] Radha Negro, ASHLY XR Chest Pa Lateral 2 Views 07/24/[address] [address] Tammy Bal, [place] Employee Screening from Last 3 Months Immunizations Immunization Administration Dates Next Due Influenza, Quadrivalent, Spl it, Preservative Free, Intramuscular 10/15/2023,11/29/2021 RSV, Bivalent, Protein Subun it Rsvpref, Diluent (Abrysvo) 10/15/2023 Tdap 10/15/2023,11/30/2021 Surgical History Surgery Date Site/Laterality Comments WISDOM [...] Sign Reading Time Taken Comments Blood Pressure 112/80 08/19/2025 8:03 AM CDT Pulse 81 08/19/2025 8:03 AM CDT Temperature 36.3 C (97.3 F) 08/19/2025 8:03 AM CDT Respiratory Rate 16 08/19/2025 8:03 AM CDT Oxygen Saturation 98% 08/19/2025 8:03 AM CDT Inhaled Oxygen Concentration - - Weight 80.3 kg (177 lb) 08/19/2025 8:03 AM CDT Height 174 cm (5' 8.5) 10/20/2024 11:49 AM PROJECT MANAGEMENT DIRECTOR Body Mass Index 26.52 10/20/2024 11:49 AM PROJECT MANAGEMENT DIRECTOR Plan of Treatment Health Maintenance Due Date Last Done Comments Cervical Cancer Screening 1989 Depression Screening 1989 Hepatitis C Screening 1989 Varicella Vaccines (1 of 2 - 13+ 2-dose series) 2002 Hepatitis B Screening 2007 Regular Well Visit/Exam 18-64 2007 HPV Vaccines (1 - 3-dose SCD M series) 02/12/2016 Covid-19 Vaccine ( - 2024-2 6 season) 2025 11/29/2021, 03/02/2021, 02/03/2021 Influenza Vaccine (#1) 2025 , 11/29/2021 DTaP/Tdap/Td Vaccine (3 - Td or Tdap) 10/15/2033 10/15/2023, 11/30/2021 Pneumococcal vaccine <65 Aged Out No longer eligible based on patient's age to complete this topic Procedures Procedure Name Priority Date/Time Associated Diagnosis Comments INFLUENZA A/B, RSV, AND COVID-19 PCR Routine 08/19/2025 10:00 AM CDT Body aches Stomach cramps POC INFLUENZA A/B, COVID-19 ANTIGEN Routine 08/19/2025 8:25 AM CDT Acute cough INFLUENZA A/B, RSV, AND COVID-19 PCR Routine 07/29/2025 10:00 AM CDT Nausea and vomiting, unspecified vomiting type Fever, unspecified fever cause Cough, unspecified type Sore throat Body aches Chills Weakness Nasal congestion Hoarseness XR CHEST PA LATERAL 2 VIEWS Schedule RAJWINDER, Read RAJWINDER (Appt Today, Awaiting Results) 07/24/2025 10:53 AM CDT Pharyngitis with viral syndrome POC INFLUENZA A/B, COVID-19 ANTIGEN Routine 07/24/2025 10:39 AM CDT Pharyngitis with viral syndrome POCT RAPID STREP Routine 07/24/2025 10:2 7 AM CDT Pharyngitis with viral syndrome from Last 3 Months Results * Influenza A/B, RSV, and COVID-19 PCR Nasopharyngeal (08/19/2025 10:00 AM CDT) COVID-19 RNA Negative Negative [facility] Influenza A RNA Negative Negative [facility] Influenza B RNA Negative Negative [facility] RSV RNA Negative Negative [facility] Comment: Interpretive data: Testing performed by [facility]. This test is performed using the [place] Xpert Xpress CoV-2/Flu/RSV plus assay. This is a multiplex, real-time reverse transcriptase PCR assay intended for the qualitative detection of nucleic acid from SARS-CoV-2, influenza A, influenza B, and respiratory syncytial virus. This assay has been cleared by the [place] Food and Drug administration. The performance characteristics have been verified by the [facility]. Results must be considered in the clinical context, and a negative result does not rule out infection. Interpretive Data last revised 2023 Nasopharyngeal 08/19/2025 10 :00 AM CDT 08/19/2025 3:06 PM CDT Narrative [facility] - 08/19/2025 4:16 PM CDT Bill to [facility] - 1520 Patient is employed by/enrolled at:->[facility] Medical Group Is the patient experiencing any symptoms consistent with COVID (eg. Fever, cough, shortness of breath)?->Yes Reason for testing?->Symptomatic Is the Patient experiencing symptoms consistent with COVID?->Yes Gonzalez Wolfe MD LAB MICROBIOLOGY - GENERAL OR DERABLES Final Result Performing Organization Address City/[facility]/ZIP Co de Phone Number [facility] [address] [address] Department [place] [address] * POC Influenza A/B, COVID-19 antigen (08/19/2025 8:25 AM CDT) Influenza A Ag, POC Negative Negative [facility] Influenza B Ag, POC Negative Negative [facility] COVID-19 Ag POC Presumptive Negative Presumptive Negative, Invalid [facility] Nasal 08/19/2025 8:25 AM CDT Maria G Nichole NP POINT OF CARE TEST ORDERABLES Final Result Performing Organization Address City/[facility]/ZIP Co de Phone Number [facility] [address] [place] [address] * Influenza A/B, RSV, and COVID-19 PCR Nasopharyngeal (07/29/2025 10:00 AM CDT) COVID-19 RNA Negative Negative Influenza A RNA Negative Negative [facility] Influenza B RNA Negative Negative [facility] RSV RNA Negative Negative [facility] Comment: Interpretive data: Testing performed by [facility]. This test is performed using the [place] Xpert Xpress CoV-2/Flu/RSV plus assay. This is a multiplex, real-time reverse transcriptase PCR assay intended for the qualitative detection of nucleic acid from SARS-CoV-2, influenza A, influenza B, and respiratory syncytial virus. This assay has been cleared by the [place] Food and Drug administration. The performance characteristics have been verified by the [facility]. Results must be considered in the clinical context, and a negative result does not rule out infection. Interpretive Data last revised 2023 Nasopharyngeal 07/29/2025 10 :00 AM CDT 07/29/2025 3:16 PM CDT Narrative [facility] - 07/29/2025 5:04 PM CDT Bill to [facility] Patient is employed by/enrolled at:->[facility] Medical Group Is the patient experiencing any symptoms consistent with COVID (eg. Fever, cough, shortness of breath)?->Yes Reason for testing?->Symptomatic Is the Patient experiencing symptoms consistent with COVID?->Yes Gonzalez Wolfe MD LAB MICROBIOLOGY - GENERAL OR DERABLES Final Result WILLIAM [address] [address] Department [place] [address] [place] * XR Chest Pa Lateral 2 Views (07/24/2025 10:53 AM CDT) Anatomical Region Laterality Modality Body, Chest N/A Digital Radiogra phy 07/24/2025 11:3 0 AM CDT Narrative 07/24/2025 11:31 AM CDT EXAM DESCRIPTION: XR CHEST PA LATERAL 2 VIEWS REASON FOR STUDY: cough Pt. Started having cough x 3 days, fever, chills, SOB. No asthma, non smoker, no lung problems, no surgeries, no cancer, no heart disease. TECHNIQUE: Frontal and lateral radiographic view(s) of the chest. COMPARISON: None FINDINGS: The heart, mediastinum, and pulmonary vasculature are grossly unremarkable. There is no definite evidence of a pneumothorax there is no definite evidence of focal consolidation or effusion. The osseous structures are acutely grossly unremarkable. IMPRESSION: 1. No acute cardiopulmonary abnormality. THIS IS AN ELECTRONICALLY VERIFIED FINAL REPORT 07/24/2025 11:31 AM - Electronically signed by Stephani Espinoza D.O. PS T: Report ID: [id number] Reading Location: [id number] Procedure Note Stephani Espinoza, DO - 07/24/2025 EXAM DESCRIPTION: XR CHEST PA LATERAL 2 VIEWS REASON FOR STUDY: cough Pt. Started having cough x 3 days, fever, chills, SOB. No asthma, nonsmoker, no lung problems, no surgeries, no cancer, no heart disease. TECHNIQUE: Frontal and lateral radiographic view(s) of the chest. COMPARISON: None FINDINGS: The heart, mediastinum, and pulmonary vasculature are grossly unremarkable. There is no definite evidence of a pneumothorax there is no definite evidence of focal consolidation or effusion. The osseous structures are acutely grossly unremarkable. IMPRESSION: 1. No acute cardiopulmonary abnormality. THIS IS AN ELECTRONICALLY VERIFIED FINAL REPORT 07/24/2025 11:31 AM - Electronically signed by Stephani Espinoza D.O. PS T: Report ID: [id number] Reading Location: [id number] Radha Negro SULPHATE TESTER IMG XR PROCEDURES Final Re sult * POC Influenza A/B, COVID-19 antigen (07/24/2025 10:39 AM CDT) Influenza A Ag, POC Negative Negative [facility] Influenza B Ag, POC Negative Negative [facility] COVID-19 Ag POC Presumptive Negative Presumptive Negative, Invalid [facility] Nasal 07/24/2025 10:3 9 AM CDT Radha Negro SULPHATE TESTER POINT OF CARE TEST ORDERAB LES Final Result [facility] [address] [place] [address] * POCT rapid strep A (07/24/2025 10:27 AM CDT) Rapid Strep A, POC Negative Negative Swab 07/24/2025 10:2 7 AM CDT Radha Negro SULPHATE TESTER POINT OF CARE TEST ORDERAB LES Final Result from Last 3 Months Insurance [facility] [place] [address] ANTHEM ACCESS ANTHEM ACCESS Care Teams Contract Mail Carrier Relationship Specialty Start Date End Date Segundo Jacobo MD [address] [place] [address] PCP - General Family Medicine 08/19/25 Unknown, Notinfile 07/24/25
--- OUTSIDE RECORDS SUMMARY | 2025-10-07 11:29 | XMS_ITS | Encounter Summary ---
Author Organization [facility] Healthcare Address [address] [place] [address] Care Team Providers Care Dray Truck Driver Name Role Phone Unknown, Notinfile Unavailable Unavailable Segundo Jacobo MD Primary Care Provider Reason for Visit * Reason Onset Date Comments [place] Employee Screening 10/07/2025 Encounter Details Date Type Department Care Team (Late st Contact Info) Description 10/07/2025 [facility] [address] [address] Sadie Uribe RN [place] Employee Screening Social History Tobacco Use Types Packs/Day Years [...] encounter Miscellaneous Notes * Telephone Encounter - Sadie Uribe RN - 10/07/2025 9:13 AM WAXER Images from the original note were not included. 07/24/2025 8:16 AM 07/29/2025 9:18 AM 08/19/2025 8:02 AM 10/07/2025 9:14 AM Employee COVID-19 Screening Email: [email or web address] Employee/Student ID# [id number] [phone] Are you an employee or student? Employee Employee Employee Employee Employer: [employer] Are you 100% RADHA? No No No No Employee Facility: [facility] Medical [facility] Are you okay receiving positive results and further instructions via email? 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 [facility] Cardiology at [facility] Cardiology at Underground Repairer/Sidehand name and email address: [email or web address] Are you considered to be severely immunocompromised? No No No No Have you had a vaccine within the past 48 hours? No No No No Are you calling about a home covid positive test? No No No No Have you tested positive for COVID in the past 60 days? (not including the positive home test you are calling about today) No No No No Have you had a known, specific Covid exposure within the last 14 days? Unknown Unknown No No Have you had an exposure to Measles, Mpox, pertussis or Nicolás Influenza in the last 30 days? No No No No Employee Symptoms: Yes Yes Yes Yes Date of employee symptom onset: 07/22/2025 07/26/2025 08/16/2025 10/04/2025 Date of Symptoms Comment Symptoms worsened Description of Symptoms: Sore Throat Nausea/Vomiting;Sore Throat;Cough;Fever;Body Aches;Nasal congestion Body Aches;Other;Subjective Fever Cough;Nasal congestion;Other Description of Symptoms Comment hoarseness, weakness, chills Other Symptoms: stomach cramps chest congestion, pnd Temperature: 103.1 What was the last day worked? 07/24/2025 07/29/2025 08/18/2025 10/07/2025 Did you work on site 48 hours prior to symptom onset and/or any days while symptomatic? Yes Yes YesYes Which date(s) did the employee work? 07/22-07/24/202507/24, 07/28-07/29/2508/17 and 08/18 10/05-10/07 Which department? [facility] Cardiology at [facility] Cardiology at [facility] cardiology Were you unmasked within 6 ft for longer than 15 minutes from another employee those days? Yes Yes Yes No Did you come within 6 feet for more than 15 minutes with any patients without wearing a mask duringthe 48 hours prior to symptom onset? And/or while symptomatic? No No No [place] of employee(s) exposed: ; [email or web address] ; Plan: (A) Stay home and test for symptoms (A) Stay home and test for symptoms (A) Stay home and test for symptoms (A) Stay home and test for symptoms Testing Site Location: [facility] Notes: Will re-test employee due to worsening symptoms after 72 hours from prior testing. Employee verbalized understanding. will test for COVID/FLU at [facility]D and call with results and RTW guidance Significant value Script A0 (stay home and test) for symptomatic employees (HCW and Non-HCW) Thank you for calling the Occupational Health Call Center. This email contains the same informationand recommendations discussed during your call. You should also forward this information to your classified advertising supervisor as confirmation. Given your symptoms, you should not come to work and will be referred for combined COVID/Influenza/RSV testing. If you have had a COVID infection in the past 2 months, your COVID test will likely result positivedue to your prior infection. In this case, further guidance will be based solely on Influenza and RSV results. If you are at work on site, you must leave work now. Notify your classified advertising supervisor that you have been directed to do so by the Occupational Health Call Center. Please go to the employee testing site as directed for your test. They should be expecting you; if there is any confusion, please call us at [phone]. Since you are reporting symptoms, wear a hospital provided mask when reporting for your test. While you are awaiting testing and results, you must remain off work. You should isolate yourself at home, avoid contact with any household members as much as possible, and stay in your home without leaving except for medical care. You should let your classified advertising supervisor know that you will not be coming to work. Although we will email your classified advertising supervisor to confirm this, it is still your responsibility to notify your classified advertising supervisor as you wouldfor any other work absence. If you have the option to wide area network engineer and you feel well enough, it must be approved by your classified advertising supervisor We will notify you of your test results, which are usually available within 24- 48 hours. Your results will also post to your [facility] My Chart account ([email or web address]). Once yourresults are back, you will receive further instruction from Occupational Health. All further communication, including test results and guidance on returning to work, will be through the email you provided us during your screening. You must follow any additional isolation or quarantine instructions provided to you by federal, state, or local health authorities. Sincerely, Occup[facility] Call Center Additional resources around self-isolation and how to prevent spread are available at: www.cdc.gov/coronavirus/2019-ncov R documented in this encounter Plan of Treatment Not on file documented as of this encounter Visit Diagnoses Not on filedocumented in this encounter Care Teams Dray Truck Driver Relationship Specialty Start Date End Date Segundo Jacobo MD [address] [address] PCP - General Family Medicine 08/19/25 Unknown, Notinfile 07/24/25 documented as of this encounter
[2025-10-07 19:12] LABS: Influenza A QL RT-PCR Negative (Negative); Influenza B QL RT-PCR Negative (Negative); RSV RNA, RT-PCR Negative (Negative); SARS-CoV-2 RNA PCR Negative (Negative)
== END 2025-10-07 10:15 | disposition home or self-care (01) ==
LOC: ANHGOSHLAB 10:15
PROVIDERS: PCP Family Medicine
DX: J06.9 Acute upper respiratory infection, unspecified (principal); Z20.822 Contact with and (suspected) exposure to COVID-19
CPT/HCPCS: 87637

== ENCOUNTER 2025-10-30 10:13 | Outpatient (CLI) | payer BC, SELFPAY ==
--- OUTSIDE RECORDS SUMMARY | 2025-10-30 10:19 | XMS_ITS | Clinical Summary ---
Author Organization [facility] Address [address] [place] [phone] Phone Care Team Providers Care Lan Specialist Name Role Phone Unavailable Primary Care [...] declined 07/22/2020 How often do you attend scientologist or evangelical serv ices? Patient declined 07/22/2020 Do you belong to any clubs o r organizations such as scientologist groups, unions, fraternal or athletic groups, or [...] 2019 INFLUENZA VACCINE (#1) 2025 HPV VACCINES (No Doses Required) Completed Insurance [facility] [employer]/ad[employer] PPO Advance Directives For more information, please contact: [phone] * Full Code (Latest Code Status on File) Date Activated Date Inactivated Comments 07/22/2020 12:23 PM 07/22/2020 5:33 PM
--- OUTSIDE RECORDS SUMMARY | 2025-10-30 10:19 | XMS_ITS | Clinical Summary ---
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 Name Role Phone Unknown, Notinfile Unavailable Unavailable [...] Type Department Care Team Description 10/07/2025 Telephone [facility] Primary Care at [address] [phone] Segundo Jacobo MD 10/07/2025 Telephone [facility] [address] [address] Sadie Uribe, [place] Employee Screening 08/19/2025 8:30 AM CDT Clinical Support [facility] Medical [facility] at [address] [phone] Encounter for laboratory testing for COVID-19 virus (Primary Dx) 08/19/2025 8:23 AM CDT - 08/19/2025 11:59 PM CDT Hospital Encounter [address] [address] Body aches; Stomach cramps Discharge Disposition: Discharge to home or self care 08/19/2025 8:00 AM CDT Office Visit [facility] Medical [facility] at [address] [phone] Maria G Nichole NP Acute cough (Primary Dx); Ear pain, bilateral; Functional diarrhea 08/19/2025 Results Follow-Up [address] [address] Poly Borjas RN Influenza A/B, RSV, and COVID-19 PCR Nasopharyngeal 08/19/[address] [address] Sadie Uribe, [place] Employee Screening from Last 3 [...] 174 cm (5' 8.5) 10/20/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 Body Mass Index 26.52 10/20/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 This test is performed using the Nexmo Xpert Xpress CoV-2/Flu/RSV plus assay. This is a multiplex, real-time reverse transcriptase PCR assay intended for the qualitative detection of nucleic acid from SARS-CoV-2, influenza A, influenza B, and respiratory syncytial virus. This assay has been cleared by the [place] Food and Drug administration. The performance characteristics have been verified by the [facility]. Results must be considered in the clinical context, and a negative result does not rule out infection. Interpretive Data last revised 2023 Nasopharyngeal 08/19/2025 10 :00 AM CDT 08/19/2025 3:06 PM CDT Narrative [facility] - 08/19/2025 4:16 PM CDT Bill to [facility] - 1520 Patient is employed by/enrolled at:->[facility] Is the patient experiencing any symptoms consistent with COVID (eg. Fever, cough, shortness of breath)?->Yes Reason for testing?->Symptomatic Is the Patient experiencing symptoms consistent with COVID?->Yes Gonzalez Wolfe MD LAB MICROBIOLOGY - GENERAL OR DERABLES Final Result [facility] [id number] [address] [place] [address] * POC Influenza A/B, COVID-19 antigen (08/19/2025 8:25 AM CDT) Influenza A Ag, POC Negative Negative [facility] Influenza B Ag, POC Negative Negative [facility] COVID-19 Ag POC Presumptive Negative Presumptive Negative, Invalid [facility] Nasal 08/19/2025 8:25 AM CDT Maria G Nichole NP POINT OF CARE TEST ORDERABLES Final Result [facility] [address] [place] [address], [facility] from Last 3 Months [place] [address] ANTHEM ACCESS ANTHEM ACCESS Care Teams Cantilever Crane Operator Relationship Specialty Start Date End Date Segundo Jacobo MD [address] [place] [address] PCP - General Family Medicine 08/19/25 Unknown, Notinfile 07/24/25
[2025-10-30 19:16] LABS: Strep Group A RT-PCR NOT DETECTED (Negative)
[2025-10-30 19:22] LABS: Influenza A QL RT-PCR Negative (Negative); Influenza B QL RT-PCR Negative (Negative); RSV RNA, RT-PCR Positive (Negative); SARS-CoV-2 RNA PCR Negative (Negative)
== END 2025-10-30 10:14 | disposition home or self-care (01) ==
LOC: ANHGOSHLAB 10:16
PROVIDERS: PCP Family Medicine
DX: J06.9 Acute upper respiratory infection, unspecified (principal); B97.4 Respiratory syncytial virus as the cause of diseases classified elsewhere
CPT/HCPCS: 87637; 87651